=== PATIENT | female | born 1930 | race Caucasian/White ===

== ENCOUNTER → 2016-06-28 | Outpatient (CLI) | payer OTHER, MEDICARE ==
[~2016-06-28] MED LIST: ASPI1TAB83 PO; CTP2 PO; CYCL0.05 OP; CZR50 PO; FURO-85 PO; GABA-112 PO; GABA-113 PO; IPRA0.06 NAE; METO50TA17 PO; compounded cream
--- NOTE | 2016-06-28 16:46 | MAMMOGRAPHY REPORT ---
BILATERAL DIGITAL SCREENING MAMMOGRAM WITH CAD: 06/28/2016 CLINICAL HISTORY: Routine screening. Patient has no complaints. TECHNIQUE: Current study was also evaluated with a Computer Aided Detection (CAD) system. Bilatera l CC and MLO views were obtained. COMPARISON: Comparison is made to exams dated: 06/24/2015 mammogram, 11/26/2013 mammogram, 11/13/2012 mammogram, 11/12/2011 mammogram, 11/09/2010 mammogram, and 11/01/2009 mammogram - [facility]. BREAST COMPOSITION: The tissue of both breasts is heterogeneously dense, which may obscure small ma sses. FINDINGS: No suspicious masses, calcifications, or areas of architectural distortion are noted in e ither breast. There has been no significant interval change compared to prior exams. Bilateral shanel gn vascular calcifications are again noted. IMPRESSION: ACR BI-RADS CATEGORY 2: BENIGN There is no mammographic evidence of malignancy. A 1 year screening mammogram is recommended. The p atient will receive written notification of the results. Approximately 10% of breast cancers are not detected with mammography. A negative mammographic repor t should not delay biopsy if a clinically suggestive mass is present. Little Bridges M.D. /:06/28/2016 15:28:08 Senior Hr Business Partner: Sadaf SOUZA(Anabell)(Dacia)(JAYSON), [facility] letter sent: Normal 1/2 BI-RADS Code: ACR BI-RADS Category 2: Benign
== END | disposition home or self-care (01) ==
LOC: C.MAMM 13:22
PROVIDERS: ATTEND Internal Medicine Critical Care Medicine
DX: Z12.31 Encounter for screening mammogram for malignant neoplasm of breast (principal)

== ENCOUNTER 2017-04-29 12:52 | Inpatient (IN) | payer OTHER, MEDICARE ==
[~2017-04-29] VITALS: Ht 162.6 cm; Wt 57.3 kg
--- NOTE | 2017-04-29 13:55 | EMERGENCY ROOM VISIT NOTE ---
History Report prepared by Maureenibdeepak: Pratima Rizzo Under the Supervision of: Dr. Curry Walter M.D. First contact with patient: 13:48 Chief Complaint: FEVER Stated Complaint: COUGH/FEVER History of Present Illness The patient is an 86 year old female who presents to the Emergency Room with complaints of persistent flu like symptoms for the past 3 days. She is accompanied by 2 family members. She complains of a fever, congestion, productive cough, chest pain, back pain and nausea. She has not vomited. Her most recent temperature was 102 degrees. She last had Tylenol around 1200 today. She is currently 98% on 2 L NC. She admits her has been sick with similar symptoms. The patient did receive a flu shot. She got a pneumonia shot last year. She admits she had pneumonia a few years ago and required a short hospital stay. The patient denies any shortness of breath, abdominal pain , diarrhea or urinary symptoms. 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 Please see Additional Medical History Sheet. Past Medical & Surgical Medical Problems: (1) ANEMIA NOS (2) Angioplasty of blood vessel (3) Appendectomy (4) Cataract (5) Cholecystectomy (6) Empyema (7) HX-SKIN MALIGNANCY NEC (8) HYPERLIPIDEMIA NEC/NOS (9) HYPERPOTASSEMIA (10) HYPERTENSION NOS (11) OSTEOPOROSIS NOS (12) PERIPH VASCULAR DIS NOS (13) Peripheral vascular disease (14) Right lower lobe pneumonia (15) Right middle lobe pneumonia Family History FH: cancer FH: gallbladder disease Hypertension Social History Smoking Status: Former Smoker Alcohol Use: none Drug Use: none Marital Status: Housing Status: lives with family Occupation Status: retired Current/Historical Medications Scheduled Aspirin (Aspirin), 81 MG PO HS Clonidine Hcl (Catapres), 1 TAB PO BID Cyclosporine (Ophth) (Restasis), 1 DROP OPB BID Furosemide (Lasix), 20 MG PO DAILY Gabapentin (Neurontin), 200 MG PO UD Losartan Potassium (Cozaar), 100 MG PO DAILY Metoprolol Tartrate (Metoprolol Tartrate), 50 MG PO BID Scheduled PRN Ipratropium [place] (Nasal) (Ipratropium [place]), 2 SPRAYS MATT TID PRN for Nasal Congestion Allergies Coded Allergies: Sulfa Antibiotics (Verified Allergy, Intermediate, RASH, 04/29/17) Codeine (Verified Adverse Reaction, Mild, ABD CRAMPS, 04/29/17) Physical Exam Vital Signs Date Time Temp Pulse Resp B/P (MAP) Pulse Ox O2 Delivery O2 Flow Rate FiO2 04/29/17 15:03 88 20 167/116 98 Nasal Cannula 2.0 04/29/17 13:12 97 Nasal Cannula 2.0 04/29/17 13:10 84 04/29/17 13:03 37.5 83 22 189/49 93 Room Air Physical Exam GENERAL: Patient awake, alert, oriented x 3. Patient follows commands. Patient does not appear toxic. Patient is adequately hydrated and well- nourished. SKIN: No erythema, pallor, cyanosis or rash HEENT: Normal head, pupils equal, reactive to light and accommodation. [Ears normal.] [Oral cavity and posterior pharynx appear normal. Neck: Without adenopathy, no neck vein distention.] LUNGS: Faint rhonchi bilaterally. No wheezes, no rales. HEART: No murmurs. No gallops. No rubs ABDOMEN: No masses, no rebound, no hepatomegaly or splenomegaly. EXTREMITIES: Above knee amputation of right leg. No signs of trauma. No pedal or pretibial edema. No calf or thigh tenderness. NEUROLOGIC: Cranial nerves II-XII within normal limits. No gross motor sensory function deficits. Medical Decision & Procedures ER Provider Diagnostic Interpretation: Radiology results as stated below per my review and radiologist interpretation: CHEST 2 VIEWS ROUTINE CLINICAL HISTORY: 86 years-old Female presenting with cough fever. TECHNIQUE: PA and lateral views of the chest were obtained. COMPARISON: 07/29/2015. FINDINGS: Atherosclerosis of aortic arch. Cardiac silhouette enlarged. Opacity in the right mid lung. Trace bilateral pleural effusions. No pneumothorax. Osteopenia suspected. Upper abdomen normal. IMPRESSION: 1. Right midlung opacity consistent with pneumonia. 2. Trace bilateral pleural effusions. Electronically signed by: Ahsan Ponce M.D. 04/29/2017 3:07 PM Laboratory Results 04/29/17 13:00 Red Blood Count 4.07, Mean Corpuscular Volume 89.4, Mean Corpuscular Hemoglobin 30.2, Mean Corpuscular Hemoglobin Concent 33.8, Mean Platelet Volume 11.0, Neutrophils (%) (Auto) 81.1, Lymphocytes (%) (Auto) 8.1, Monocytes (%) (Auto) 10.2, Eosinophils (%) (Auto) 0.1, Basophils (%) (Auto) 0.1, Neutrophils # (Auto ) 12.15, Lymphocytes # (Auto) 1.22, Monocytes # (Auto) 1.53, Eosinophils # (Auto ) 0.01, Basophils # (Auto) 0.02 04/29/17 13:00 Test 04/29/17 13:00 04/29/17 14:28 04/29/17 14:31 White Blood Count 14.99 K/uL (4.8-10.8) Red Blood Count 4.07 M/uL (4.2-5.4) Hemoglobin 12.3 g/dL (12.0-16.0) Hematocrit 36.4 % (37-47) Mean Corpuscular Volume 89.4 fL (80-100) Mean Corpuscular Hemoglobin 30.2 pg (25-34) Mean Corpuscular Hemoglobin Concent 33.8 g/dl (32-36) Platelet Count 284 K/uL (130-400) Mean Platelet Volume 11.0 fL (7.4-10.4) Neutrophils (%) (Auto) 81.1 % Lymphocytes (%) (Auto) 8.1 % Monocytes (%) (Auto) 10.2 % Eosinophils (%) (Auto) 0.1 % Basophils (%) (Auto) 0.1 % Neutrophils # (Auto) 12.15 K/uL (1.4-6.5) Lymphocytes # (Auto) 1.22 K/uL (1.2-3.4) Monocytes # (Auto) 1.53 K/uL (0.11-0.59) Eosinophils # (Auto) 0.01 K/uL (0-0.5) Basophils # (Auto) 0.02 K/uL (0-0.2) RDW Standard Deviation 44.7 fL (36.4-46.3) RDW Coefficient of Variation 13.6 % (11.5-14.5) Immature Granulocyte % (Auto) 0.4 % Immature Granulocyte # (Auto) 0.06 K/uL (0.00-0.02) Dohle Bodies 1+ Anion Gap 9.0 mmol/L (3-11) Est Creatinine Clear Calc Drug Dose 27.4 ml/min Estimated GFR () 44.8 Estimated GFR (Non- 38.6 BUN/Creatinine Ratio 21.8 (10-20) Calcium Level 8.7 mg/dl (8.5-10.1) Total Bilirubin 1.2 mg/dl (0.2-1) Aspartate Amino Transf (AST/SGOT) 21 U/L (15-37) Alanine Aminotransferase (ALT/SGPT) 11 U/L (12-78) Alkaline Phosphatase 183 U/L (45-117) Total Protein 7.5 gm/dl (6.4-8.2) Albumin 2.6 gm/dl (3.4-5.0) Globulin 4.9 gm/dl (2.5-4.0) Albumin/Globulin Ratio 0.5 (0.9-2) Influenza Type A (RT-PCR) Neg for Influ A (NEG) Influenza Type B (RT-PCR) Neg for Influ B (NEG) Lactic Acid Level 1.4 mmol/L (0.4-2.0) Laboratory results as stated above per my review. Medications Administered Medications (Trade) Dose Ordered Sig/[place] Route Start Time Stop Time Status Last Admin Dose Admin Sodium Chloride 1,000 ml @ 1,000 mls/hr Q1H ONCE IV 04/29/17 14:15 04/29/17 15:14 DC 04/29/17 14:25 1,000 MLS/HR Ceftriaxone Sodium (Rocephin Inj) 1 gm NOW STAT IV 04/29/17 15:41 04/29/17 15:43 DC 04/29/17 16:01 1 GM Azithromycin (Zithromax IV) 500 mg NOW STAT IV 04/29/17 15:41 04/29/17 15:43 DC 04/29/17 16:39 500 MG ED Course 1345: Past medical records reviewed. The patient was evaluated in room B2. A complete history and physical examination was performed. 1415: NSS 1000 ml @ 1000 mls/hr IV. 1541: Azithromycin 500 mg IV, Rocephin 1 gm IV. 1543: I reevaluated the patient. I discussed her results and my recommendation she remain in the hospital for further evaluation and management and she and her family verbalized complete understanding and agreement. 1550: I discussed the patients case with Dr. River [facility] Hospitalist. The patient will be further evaluated. Medical Decision The differential diagnoses considered include influenza, pneumonia, bronchitis and sepsis. This patient is here with a cough fever and chills. Others in her family were recently diagnosed with the flu. Multiple labs, EKG and imaging were obtained. Please see above. White count is elevated. The patient has a right middle lobe infiltrate consistent with pneumonia. Blood cultures were obtained prior to initiation of IV antibiotics. The patient was given IV fluids. Her lactic acid was not elevated. I discussed care with the patient and multiple family members. I also discussed care with the hospitalist. Medication Reconcilliation Current Medication List: was not reviewed Blood Pressure Screening Patient's blood pressure: Elevated blood pressure Blood pressure disposition: Referred to PCP Consults Time Called: 1548 Consulting Physician: Dr. River, [facility] Hospitalist Returned Call: 1559 I discussed the patients case with Dr. River [facility] Hospitalist. The patient will be further evaluated. Impression Primary Impression: Pneumonia Scribe Attestation The scribe's documentation has been prepared under my direction and personally reviewed by me in its entirety. I confirm that the note above accurately reflects all work, treatment, procedures, and medical decision making performed by me. Departure Information Dispostion Being Evaluated By Hospitalist Referrals [facility] (PCP) Patient Instructions My [facility]
[2017-04-29 14:02] LABS: HEMATOCRIT 36.4 % (37-47); HEMOGLOBIN 12.3 g/dL (12.0-16.0); MEAN CELL VOLUME 89.4 fL (80-100); MEAN CORPUSCULAR HEMOGLOBIN 30.2 pg (25-34); MEAN CORPUSCULAR HGB CONC 33.8 g/dl (32-36); PLATELET COUNT 284 K/uL (130-400); RED CELL DISTRIBUTION WIDTH CV 13.6 % (11.5-14.5); RED CELL DISTRIBUTION WIDTH SD 44.7 fL (36.4-46.3); WHITE BLOOD COUNT 14.99 K/uL (4.8-10.8)
[2017-04-29] MEDS ORDERED: NRN100 (14:05)
[2017-04-29] MEDS ORDERED: CYCL0.052 OPB (14:05)
[2017-04-29] MEDS ORDERED: LOSA100T65 PO (14:05)
[2017-04-29] MEDS ORDERED: CLON0.2T PO (14:05)
[2017-04-29 14:10] LABS: ALBUMIN 2.6 gm/dl (3.4-5.0); CALCIUM 8.7 mg/dl (8.5-10.1); CREATININE 1.25 mg/dl (0.60-1.20); POTASSIUM 3.8 mmol/L (3.5-5.1)
[2017-04-29 14:13] LABS: TOTAL PROTEIN 7.5 gm/dl (6.4-8.2)
[2017-04-29] MEDS ORDERED: SODIUM CHLORIDE 0.9% 1000ML 1,000 ML IV ONE (14:15)
[2017-04-29 14:30] LABS: BASO % 0.1 %; BASO ABS # 0.02 K/uL (0-0.2); EOS % 0.1 %; EOS ABS # 0.01 K/uL (0-0.5); IG# 0.06 K/uL (0.00-0.02); LYMPH % 8.1 %; LYMPH ABS # 1.22 K/uL (1.2-3.4); MONO % 10.2 %; MONO ABS # 1.53 K/uL (0.11-0.59); NEUT % 81.1 %; NEUT ABS # 12.15 K/uL (1.4-6.5)
--- NOTE | 2017-04-29 15:09 | DIAGNOSTIC IMAGING REPORT ---
CHEST 2 VIEWS ROUTINE CLINICAL HISTORY: 86 years-old Female presenting with cough fever. TECHNIQUE: PA and lateral views of the chest were obtained. COMPARISON: 07/29/2015. FINDINGS: Atherosclerosis of aortic arch. Cardiac silhouette enlarged. Opacity in the right mid lung. Trace bilateral pleural effusions. No pneumothorax. Osteopenia suspected. Upper abdomen normal. IMPRESSION: 1. Right midlung opacity consistent with pneumonia. 2. Trace bilateral pleural effusions. Electronically signed by: Ahsan Ponce M.D. 04/29/2017 3:07 PM Dictated Date/Time: 04/29/2017 3:06 PM
[2017-04-29 15:26] LABS: INFLUENZA A PCR Neg for Influ A (NEG); INFLUENZA B PCR Neg for Influ B (NEG)
[2017-04-29] MEDS ORDERED: AZITHROMYCIN 500MG/255ML D5W IV STA (15:41)
[2017-04-29] MEDS ORDERED: CEFTRIAXONE SOD INJ 1 GM ADDVIAL IV STA (15:41)
[2017-04-29] MEDS ORDERED: MAGNESIUM HYDROXIDE SUSP 30 ML UDC PO PRN (17:00)
[2017-04-29] MEDS ORDERED: ALUMINUM/MAGNESIUM/SIMETH (MAALOX MAX) 30 ML UDC PO PRN (17:00)
[2017-04-29] MEDS ORDERED: METRONIDAZOLE / NSS 500 MG in PREMIXED NSS 100 ML IV SCH (17:00)
[2017-04-29] MEDS ORDERED: POLYETHYLENE (MIRALAX) 17 GM PACK PO PRN (17:00)
[2017-04-29] MEDS ORDERED: CEFEPIME IV 2,000 MG in SYRINGE 7.5 ML IV SCH (17:00)
[2017-04-29] MEDS ORDERED: HydrALAZINE HCL 20 MG/ML VIAL IV. PRN (17:15)
--- NOTE | 2017-04-29 17:21 | History and Physical ---
History & Physical Date & Time of Service: Apr 29, 2017 at 17:17 Chief Complaint: Cough/Fever Primary Care Physician: Anita Martinez History of Present Illness Source: patient Ms. Hager is an 86 y/o female with PMHx of Peripheral Artery Disease S/P Multiple Angioplasties and R AKA, Chronic Diastolic Dysfunction, and HTN who presents to the ED complaining of flulike symptoms 3 days. She developed sudden onset of chest congestion with a productive cough and fever. She states her temperature was 102 earlier today and took Tylenol around 12:00. From her coughing she states she has developed diffuse chest wall discomfort. She states she also has sinus congestion with maxillary sinus pressure. reports he had similar symptoms and is slowly resolving. She states she did have her flu vaccine this year and her pneumonia vaccine in the recent past. She denies any shortness of breath or supplemental O2 at home. CXR revealed a right middle lobe pneumonia with leukocytosis. Flu swab was negative. Past records reviewed, patient was admitted in April 2015 due to RML and RLL pneumonia which subsequently turned out to be an empyema requiring Pleurx drainage. She was discharged at that time on Augmentin and outpatient records revealed resolution of this issue. Past Medical/Surgical History 1. HLD 2. PAD S/P Angioplasties and S/P R AKA 3. Paroxysmal Atrial Fibrillation 4. Diastolic CHF 5. Chronic Anemia 6. HTN 7. S/P Cholecystectomy 8. S/P Appendectomy Family History FH: cancer FH: gallbladder disease Hypertension Social History Smoking Status: Former Smoker Drug Use: none Marital Status: Occupational Status: retired Immunizations History of Influenza Vaccine: Yes Influenza Vaccine Date: Feb 27, 2013 History of Tetanus Vaccine?: Yes Tetanus Immunization Date: May 30, 2011 History of Pneumococcal: Yes History of Hepatitis B Vaccine: Unknown Allergies Coded Allergies: Sulfa Antibiotics (Verified Allergy, Intermediate, RASH, 04/29/17) Codeine (Verified Adverse Reaction, Mild, ABD CRAMPS, 04/29/17) Home Medications Scheduled Aspirin (Aspirin), 81 MG PO HS Clonidine Hcl (Catapres), 1 TAB PO BID Cyclosporine (Ophth) (Restasis), 1 DROP OPB BID Furosemide (Lasix), 20 MG PO DAILY Gabapentin (Neurontin), 200 MG PO UD Losartan Potassium (Cozaar), 100 MG PO DAILY Metoprolol Tartrate (Metoprolol Tartrate), 50 MG PO BID Scheduled PRN Ipratropium [place] (Nasal) (Ipratropium [place]), 2 SPRAYS MATT TID PRN for Nasal Congestion Review of Systems Constitutional: + fever, + fatigue ENT: + nasal symptoms, + sore throat, + problem reported (maxillary sinus pressure) Respiratory: + cough, + sputum, No shortness of breath Cardiovascular: + chest pain (diffuse - started after frequent coughing), No palpitations Abdomen: + nausea (currently resolved), No pain, No vomiting, No diarrhea, No constipation, No GI bleeding Genitourinary - Female: No dysuria Hematologic / Lymphatic: No abnormal bleeding/bruising Integumentary: No rash Physical Exam Vital Signs Date Time Temp Pulse Resp B/P (MAP) Pulse Ox O2 Delivery O2 Flow Rate FiO2 04/29/17 15:03 88 20 167/116 98 Nasal Cannula 2.0 04/29/17 13:12 97 Nasal Cannula 2.0 04/29/17 13:10 84 04/29/17 13:03 37.5 83 22 189/49 93 Room Air General Appearance: WD/WN, no apparent distress, + pertinent finding Head: normocephalic, atraumatic Eyes: sclerae normal ENT: hearing grossly normal Neck: supple, no JVD, trachea midline Respiratory/Chest: no respiratory distress, no accessory muscle use, + decreased breath sounds (R bases > L bases), + crackles (R bases) Cardiovascular: regular rate, rhythm Abdomen/GI: normal bowel sounds, non tender, soft Extremities/Musculoskelatal: + pertinent finding (R AKA; chronic parrish of LLE) Neurologic/Psych: alert, oriented x 3 Skin: normal color, warm/dry Diagnostics Laboratory Results Results Past 24 Hours Test 04/29/17 13:00 04/29/17 14:28 04/29/17 14:31 Range/Units White Blood Count 14.99 4.8-10.8 K/uL Red Blood Count 4.07 4.2-5.4 M/uL Hemoglobin 12.3 12.0-16.0 g/dL Hematocrit 36.4 37-47 % Mean Corpuscular Volume 89.4 80-100 fL Mean Corpuscular Hemoglobin 30.2 25-34 pg Mean Corpuscular Hemoglobin Concent 33.8 32-36 g/dl Platelet Count 284 130-400 K/uL Mean Platelet Volume 11.0 7.4-10.4 fL Neutrophils (%) (Auto) 81.1 % Lymphocytes (%) (Auto) 8.1 % Monocytes (%) (Auto) 10.2 % Eosinophils (%) (Auto) 0.1 % Basophils (%) (Auto) 0.1 % Neutrophils # (Auto) 12.15 1.4-6.5 K/uL Lymphocytes # (Auto) 1.22 1.2-3.4 K/uL Monocytes # (Auto) 1.53 0.11-0.59 K/uL Eosinophils # (Auto) 0.01 0-0.5 K/uL Basophils # (Auto) 0.02 0-0.2 K/uL RDW Standard Deviation 44.7 36.4-46.3 fL RDW Coefficient of Variation 13.6 11.5-14.5 % Immature Granulocyte % (Auto) 0.4 % Immature Granulocyte # (Auto) 0.06 0.00-0.02 K/uL Dohle Bodies 1+ Sodium Level 137 136-145 mmol/L Potassium Level 3.8 3.5-5.1 mmol/L Chloride Level 101 98-107 mmol/L Carbon Dioxide Level 27 21-32 mmol/L Anion Gap 9.0 3-11 mmol/L Blood Urea Nitrogen 27 7-18 mg/dl Creatinine 1.25 0.60-1.20 mg/dl Est Creatinine Clear Calc Drug Dose 27.4 ml/min Estimated GFR () 44.8 Estimated GFR (Non- 38.6 BUN/Creatinine Ratio 21.8 10-20 Random Glucose 118 70-99 mg/dl Calcium Level 8.7 8.5-10.1 mg/dl Total Bilirubin 1.2 0.2-1 mg/dl Aspartate Amino Transf (AST/SGOT) 21 15-37 U/L Alanine Aminotransferase (ALT/SGPT) 11 12-78 U/L Alkaline Phosphatase 183 45-117 U/L Total Protein 7.5 6.4-8.2 gm/dl Albumin 2.6 3.4-5.0 gm/dl Globulin 4.9 2.5-4.0 gm/dl Albumin/Globulin Ratio 0.5 0.9-2 Influenza Type A (RT-PCR) Neg for Influ A NEG Influenza Type B (RT-PCR) Neg for Influ B NEG Lactic Acid Level 1.4 0.4-2.0 mmol/L Microbiology Results 04/29/17 Blood Culture, Received Pending 04/29/17 Blood Culture, Received Pending Diagnostic Radiology CHEST 2 VIEWS ROUTINE FINDINGS: Atherosclerosis of aortic arch. Cardiac silhouette enlarged. Opacity in the right mid lung. Trace bilateral pleural effusions. No pneumothorax. Osteopenia suspected. Upper abdomen normal. IMPRESSION: 1. Right midlung opacity consistent with pneumonia. 2. Trace bilateral pleural effusions. Impression Assessment and Plan Ms. Hager is an 86 y/o female with PMHx of Peripheral Artery Disease S/P Multiple Angioplasties and R AKA, Chronic Diastolic Dysfunction, and HTN who presents to the ED complaining of flulike symptoms 3 days. Sepsis from Community Acquired Pneumonia: - Obtain CT chest for further evaluation of pneumonia given her history of previous empyema - Ceftriaxone 2 g IV daily, Zithromax 250 mg IV daily, and Vancomycin - Tylenol PRN fever/pain - NSS at 75 mL/hr - Duo nebs Peripheral Artery Disease S/P Angioplasties and S/P R AKA: - ASA 81 mg daily Chronic Diastolic Dysfunction: - Daily weights and I&O Paroxysmal Atrial Fibrillation: - Quick review of previous admission in 2014 suggests she had an episode of what appears to be remote atrial fibrillation related to her respiratory illness at the time - Patient does not recall ever being diagnosed with this and is not on anticoagulation HTN: - Clonidine 0.2 mg BID and metoprolol 50 mg BID DVT Prophylaxis: Heparin 5000 units Q12H Code Status: FULL RESUSCITATION Disposition: - Lives at the [facility] - will obtain PT/OT evaluations I personally interviewed and examined the patient. I agree with history of present illness and physical exam mentioned above, I also performed my own history taking and examination. Past medical history and review of system has been obtained by myself I reviewed all pertinent labs and studies Reviewed current medications I discussed and formulated of the assessment and plan mentioned above. Please refer to the Summary mentioned below. Agree With Miss. Carrero's plan General Appearance: Mild acute distress Eyes: normal Sclerae, extraocular muscle intact ENT: hearing grossly normal Neck: supple Respiratory/Chest: Decreased air entry bilateral , mild respiratory distress, no accessory muscle use, currently she is comfortable on O2 supplement Cardiovascular: no murmur, tachycardia Abdomen: non tender, soft, no masses Extremities: no edema Neurologic/Psychiatric: Awake alert oriented times place and person moves all extremities sensation intact cranial nerves II-12 appear to be intact Skin: normal color, warm/dry, no rash 86-year-old female presented to the ED with shortness of breath Assessment Sepsis present on admission secondary to below Community-acquired pneumonia with possible empyema complication (loculated effusion on CAT scan) Hypertension Atrial fibrillation Chronic diastolic congestive heart failure, not in acute exacerbation Accidental finding of thyroid nodule on CAT scan plan: continune supportive care CTX/Azithro Swallow evaluation to rule out aspiration pneumonia also giving her Hx of empyema and possibility of community acquired MRSA will cover w vanco lactinex for C diff prophylaxis Consult mortgage loan interviewer for loculated pleural effusion gentle fluid hydration CT chest showed some loculated effusion Aba Odonnell MD, [facility] Level of Care Telemetry Resuscitation Status FULL RESUSCITATION VTE Prophylaxis VTE Risk Assessment Done? Y/N: Yes Risk Level: Moderate Given or contraindicated: Unfractionated heparin SQ
[2017-04-29] MEDS ORDERED: METOPROLOL TARTRATE 1 MG/ML VIAL IV. PRN (17:30)
[2017-04-29] MEDS ORDERED: ACETAMINOPHEN IV 100 ML IV PRN (17:30)
--- NOTE | 2017-04-29 18:02 | DIAGNOSTIC IMAGING REPORT ---
(CHEST) THORAX WITHOUT CLINICAL HISTORY: 86 years-old Female presenting with Pneumona - H/O Empyema in RML. TECHNIQUE: Multidetector CT imaging of the chest was performed without the use of intravenous contrast. IV contrast: None. A dose lowering technique was used consistent with the principles of ALARA (as low as reasonably achievable). COMPARISON: 12/23/2015. CT DOSE (mGy.cm): The estimated cumulative dose is 181.12 mGy.cm. FINDINGS: Hvac Tech topogram: Right midlung opacity. On soft tissue windows, 1.9 cm hypodense nodule in the right lobe of the thyroid. Prominent precarinal lymph nodes measuring up to 10 mm in the short axis. Evaluation of for hilar lymph nodes is limited in the absence of intravenous contrast. Atherosclerosis of the aorta. Normal heart size. Aortic valve and coronary artery calcification. Lobular loculated pleural fluid or pleural thickening suggested in the major fissure on the right. Borderline hepatic steatosis. The esophagus is mildly distended with gas and debris. On lung windows, dependent opacities likely atelectasis. Nodular consolidation in the anterior basal right lower lobe (series 4 image 208). Near complete right middle lobe collapse although airways to the right middle lobe remain patent. This appears to be chronic. Centrilobular nodular opacities in the superior segment of the right lower lobe. Lobular peribronchovascular consolidation in the posterior segment of the right upper lobe. Additional groundglass or bronchovascular opacity at the right apex. Few solid nodular opacities in the lingula. Diffuse bronchial wall thickening greater in the right lung with a basal predominance. Minimal debris suggested in several of the right lower lobe subsegmental airways. On bone windows, mild degenerative changes of the thoracic spine. IMPRESSION: 1. Multifocal peribronchovascular patchy opacities primarily in the right lung combined with bronchial wall thickening concerning for multifocal bronchopneumonia or aspiration. 2. Few opacities in the left lung may suggest endobronchial spread of infection versus less extensive aspiration. 3. Chronic collapse of the right middle lobe, which has increased from prior. 4. Loculated pleural fluid or pleural thickening in the right major fissure may relate to the infectious etiology, especially in the absence of a history of malignancy. 5. 1.9 cm right thyroid lobe nodule. Nonemergent ultrasound to be considered. Electronically signed by: Ahsan Ponce M.D. 04/29/2017 6:00 PM Dictated Date/Time: 04/29/2017 5:52 PM
[2017-04-29 19:13] VITALS: BP 178/67; PULSE 104; TEMP 37.8; O2SAT 98; Ht 162.6 cm; Wt 57.3 kg
--- NOTE | 2017-04-29 19:33 | NUR ---
Patient arrived via wheelchair from ER to room 288-2; A&O; states she has no energy; stands and pivots well; voided in toilet; no c/o pain; all admission nursing documentation completed; call dumont within reach and pt instructed to ring for assistance.
[2017-04-29] MEDS: ALBUT/IPRATROP 3MG/0.5MG NEB 3 ML VIAL INH SCH (19:52)
[2017-04-29 19:57] VITALS: PULSE 98; O2SAT 95
[2017-04-29 20:00] VITALS: BP 178/57; PULSE 77; TEMP 37.2; O2SAT 91; O2SAT 95
--- NOTE | 2017-04-29 20:00 | NUR ---
A: Pt in sinus tachycardia to sinus rhythm on monitor.
[2017-04-29] MEDS: ACETAMINOPHEN 325 MG TAB PO PRN (20:09)
[2017-04-29] MEDS: ONDANSETRON INJ 2 MG/ML 2 ML VIAL IV PRN (20:09)
[2017-04-29] MEDS ORDERED: VANCOMYCIN CONSULT ACTIVE PRN (20:15)
[2017-04-29] MEDS ORDERED: VANCOMYCIN IV 1,250 MG in SODIUM CHLORIDE 0.9% 250ML 250 ML IV SCH (20:30)
[2017-04-29 20:50] VITALS: BP 134/68; PULSE 106; O2SAT 91
[2017-04-29] MEDS: SODIUM CHLORIDE 0.9% 1000ML 1,000 ML IV SCH (20:53)
[2017-04-29] MEDS ORDERED: HEPARIN SOD 5000 UNIT/0.5 ML CARP SQ SCH (21:00)
[2017-04-29] MEDS ORDERED: CLONIDINE HCL 0.2 MG TAB PO SCH (21:00)
[2017-04-29] MEDS: BOOST VANILLA OR BOOST GLUCOSE CONTROL CHOCOLATE PO SCH (21:00)
[2017-04-29] MEDS: METOPROLOL TARTRATE 50 MG TAB PO SCH (21:03)
[2017-04-29] MEDS: ASPIRIN 81 MG ECTAB PO SCH (21:03)
[2017-04-29] MEDS: HEPARIN SOD 5000 UNIT/0.5 ML CARP SQ SCH (21:39)
[2017-04-29] MEDS: CLONIDINE HCL 0.1 MG TAB PO SCH (21:42)
--- NOTE | 2017-04-29 21:47 | NUR ---
A: Pt had nausea and vomiting after being settled in room 288-2. Zofran administered. PO Tylenol administered due to increasing temperature. Pt is A&Ox4. Denies chest pain. Sinus rhythm to sinus tach on the monitor. IV in left AC is tender. IV team paged for new site. Pt receiving IV antibiotics, IVF, and IV Zofran. Respiratory therapist saw patient and noted that patient's sats were now >90% on RA. 2L O2 NC removed. Will continue to monitor.
[2017-04-29 22:00] LABS: INR 1.1 (0.9-1.1); PTT PATIENT 30.8 SECONDS (21.0-31.0)
[2017-04-29 22:32] VITALS: TEMP 36.6
[2017-04-30] VITALS (12 sets, daily range): BP systolic 107–150; BP diastolic 50–65; PULSE 65–89; TEMP 36.4–37; O2SAT 90–97
--- NOTE | 2017-04-30 | NUR ---
A: Patient resting in bed. A&O x4. VSS on room air. NSR on monitor. OOB with supervision assist to wheelchair to BR. Patient remains afebrile. NSS infusing at 75mL/hr intro LT forearm. RT BKA noted. See EMR for full assessment. Instructed to ring for assistance. Will continue to monitor.
--- NOTE | 2017-04-30 04:00 | NUR ---
A: Patient remain resting in bed with no complaints. A&O x4. VSS on room air. NSR on monitor. Patient denies pain, nausea or shortness of breath at this time. Assessment unchanged from previous. Call dumont within reach. Will continue to monitor.
[2017-04-30 06:56] LABS: HEMATOCRIT 32.2 % (37-47); HEMOGLOBIN 10.6 g/dL (12.0-16.0); MEAN CELL VOLUME 90.4 fL (80-100); MEAN CORPUSCULAR HEMOGLOBIN 29.8 pg (25-34); MEAN CORPUSCULAR HGB CONC 32.9 g/dl (32-36); MEAN PLATELET VOLUME 10.5 fL (7.4-10.4); PLATELET COUNT 218 K/uL (130-400); RED CELL DISTRIBUTION WIDTH CV 13.8 % (11.5-14.5); RED CELL DISTRIBUTION WIDTH SD 46.1 fL (36.4-46.3)
[2017-04-30 07:20] LABS: CALCIUM 7.7 mg/dl (8.5-10.1); CREATININE 1.1 mg/dl (0.60-1.20); POTASSIUM 3.9 mmol/L (3.5-5.1)
[2017-04-30] MEDS: ALBUT/IPRATROP 3MG/0.5MG NEB 3 ML VIAL INH SCH ×4 (07:38→19:26)
--- NOTE | 2017-04-30 08:00 | NUR ---
A: PT IS A&OX4. VSS ON RA. DENIES CHEST PAIN AND SOB. PT IS OOB WITH SUPERVISION TO THE WHEELCHAIR. PT IS NSR ON MONITOR. NSS INFUSING PER ORDER WITH INTERMITTENT ABX. PT IS HAS POOR APPETITE BUT TOLERATING DIET. PT IS RESTING IN BED AT THIS TIME. Q1H ROUNDING. CALL RINCON WITHIN REACH. WILL CONTINUE TO MONITOR.
[2017-04-30] MEDS: CLONIDINE HCL 0.1 MG TAB PO SCH ×2 (08:09→21:35)
[2017-04-30] MEDS: METOPROLOL TARTRATE 50 MG TAB PO SCH ×2 (08:09→21:34)
[2017-04-30] MEDS: BOOST VANILLA OR BOOST GLUCOSE CONTROL CHOCOLATE PO SCH ×2 (08:10→19:00)
[2017-04-30] MEDS: SODIUM CHLORIDE 0.9% 1000ML 1,000 ML IV SCH (08:11)
[2017-04-30] MEDS: HEPARIN SOD 5000 UNIT/0.5 ML CARP SQ SCH ×2 (08:12→21:37)
[2017-04-30] MEDS: CEFTRIAXONE SOD INJ 2,000 MG in DEXTROSE 5% 50ML 50 ML IV SCH (08:43)
--- NOTE | 2017-04-30 10:55 | PULMONARY CONSULTATION ---
DATE OF CONSULTATION: 04/30/2017 DATE OF CONSULTATION: 04/30/2017 REASON FOR CONSULTATION: Bronchopneumonia. HISTORY OF PRESENT ILLNESS: An 86-year-old white female [facility] her states she was in her usual state of health but over the past 3 days has become progressively more ill. She states she went out Saturday for dinner because of their anniversary, but a poorly and the next morning developed sore throat, productive cough, eventually nausea and right-sided chest discomfort. She felt congested and she developed a fever with rigors. The temperature reached 102. She took Tylenol, but her also has been ill and decision was made to bring her to our ER and was seen by Dr. Walter. She was seen by Dr. Walter. She has received annual flu vaccines and is up to date with Pneumovax. Chest x-ray suggested a right mid lung opacity consistent with pneumonia with trace bilateral pleural effusions. White count was 14,900, H&H 12.3 and 36.4. Preponderance of polymorphonuclear leukocytes was seen in the differential - RT-PCR for both influenza type A and B were negative. Lactic acid was 1.4. The patient was started on IV azithromycin and Rocephin by Dr. Walter in the ER after cultures were obtained. The patient was admitted onto the hospitalist service. The patient has a negative smoking history although does have secondary exposure. Her last admission was last year at this time. I saw her in consultation on 04/27/2015. I had seen her previously with both the right middle and lower lobe pneumonia and right pleural effusion. She presented at that time with severe right-sided discomfort. She has a history of chronic anemia, dyslipidemia, hypertension, peripheral vascular disease with previous amputation of the right lower extremity by Dr. Smith and previous cholecystectomy and appendectomy. CAT scan at that time showed consolidative changes involving the right middle lobe and right lung base. She was placed on aerosolized bronchodilator with broad-spectrum antibiotic coverage at that time and kept on her diuretics, metoprolol and losartan. She also suffers from a peripheral neuropathy. Dr. James is her primary care physician. She has 3 grown children, 2 who live locally. 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 She has 2 grandchildren who live here. She has a history of renal artery stenosis with a 50% right renal artery stenosis by MRA. 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 She has undergone a right femoral popliteal bypass in the past but eventually the leg had to be amputated. In 2014, in November, she had a loculated right pleural effusion with nearly complete atelectasis of the right lower lobe and middle lobe. There was a question whether she had significant mediastinal lymphadenopathy from a neoplastic process. PET CT scan in September of 2014 showed abnormal soft tissue nodularity in the inferior aspect of the right upper lobe and in the paramediastinal region and right hilum. There was certainly a concern for neoplasm at the time. The patient was eventually evaluated by Dr. Colby Fishman who saw the patient in consultation on 04/28/2015. Her white count had reached 45,000 at that time and had come down to 23,000 on antibiotic coverage. Thoracentesis showed an exudate with an elevated LDH and there was a concern about empyema versus parapneumonic effusion. The fluid appeared to be loculated. A PleurX catheter was placed and thrombolysis was carried out with 4 mg of tissue plasminogen activator mixed with 100 mL of sterile saline. This was effective. The PleurX catheter was removed in May 2015. The patient was kept on Augmentin therapy for several weeks and recovered. During the process of workup on admission CT scan of the chest was done and this was compared to previous CT scan of 12/23/2015 and showed multifocal peribronchovascular patchy opacities primarily in the right lung combined with bronchial wall thickening concerning for multifocal bronchopneumonia or aspiration. There were also a few opacities in the left lung suggesting either endobronchial spread of infection versus less extensive aspiration. There was chronic collapse of the right middle lobe and loculated pleural fluid or thickening of the right major fissure. There was also a thyroid nodule seen. Blood cultures were obtained. The patient's white count on admission as stated earlier was close to 15,000, BUN 28, creatinine 1.1. For details of past medical history, medications, family and social history, I refer you to current record. PHYSICAL EXAMINATION: GENERAL: Reveals a well-developed, thin, cachectic elderly white female appearing stable at rest but coughing sporadically and appearing ill and mildly toxic. CURRENT VITAL SIGNS: Temperature 37.5, pulse 83 and regular, respiratory rate 22, blood pressure 189/49, O2 sat 93% on room air and 98% on 2 liters. SKIN: Warm and dry. HEAD, EYES, EARS, NOSE, AND THROAT: Atraumatic, normocephalic, PERRLA, EOMI. Conjunctivae pale. Sclerae nonicteric. Fundi poorly visualized. NECK: Neck veins are not distended at 45 degrees. No lymphadenopathy. LUNGS: Tubular breath sounds right mid axillary with decreased breath sounds, scattered wheezes right base. CARDIAC EXAMINATION: Regular rate and rhythm. I do not appreciate a gallop. Grade 1/6 SCM heard at the lower left sternal border. ABDOMEN: Soft, scaphoid. No evidence of hepatosplenomegaly. EXTREMITIES: Right AKA with chronic stasis changes left lower extremity. Pulses diminished in the dorsalis pedis and posterior tibial. NEUROLOGICAL: Cranial nerves II-XII grossly intact. No lateralizing signs. LABORATORY DATA: As stated earlier. OVERALL ASSESSMENT AND IMPRESSION: An 86-year-old white female with past medical history of severe peripheral artery disease, status post multiple angioplasties and bypass surgery with right AKA, chronic diastolic dysfunction, paroxysmal atrial fibrillation, hypertensive cardiovascular disease and previous history of multilobar pneumonia with empyema status post PleurX catheter drainage with use of intrapleural plasminogen activator to effect adequate drainage, now presents with multilobar pneumonia that appears to be community-acquired. Currently, the patient has received IV ceftriaxone, IV Zithromax and vancomycin and has been placed back on her Catapres, metoprolol as well as receiving aerosolized bronchodilator. I think the antibiotic coverage is adequate. I have reviewed her records and no pathognomonic organism was found from the pleural fluid or bronchoscopic intervention in 2015. I do not believe there is a significant amount of fluid to be drained involving the right pleural space currently, but rather it looks more like thickening as a result of the previous parapneumonic effusion or empyema. We will continue to follow along with you. The patient may benefit from bronchoscopic intervention if she fails to clinically improve with current therapy. Thank you very much for this consultation. We will follow along with you.
--- NOTE | 2017-04-30 11:42 | NUR ---
RD noted new supplement order for Boost BID. Pt prefers anastasia. and strawberry flavor - kitchen made aware & supplement order revised in [employer] to reflect change in times to 1000 & 1900 (kitchen snack time schedule). Consult RD PRN for additional nutrition interventions.
--- NOTE | 2017-04-30 12:00 | NUR ---
A: ASSESSMENT UNCHANGED. Q1H ROUNDING. CALL RINCON WITHIN REACH. WILL CONTINUE TO MONITOR.
--- NOTE | 2017-04-30 13:00 | NUR ---
Case Management- Met with patient in room. Patient lives in the [facility] the [facility]. Patient reports she lives with her she is independent wih adls uses a walker to ambulate does not drive due to previous aka. Her or son typically transports to appointments if they are not availabloe the [facility] transports her. She plans to return home on discharge. CM following
--- NOTE | 2017-04-30 13:33 | Pharmacy Progress Note ---
Pharmacy Abx Initial Consult Date of Service Apr 30, 2017. Pharmacy Dosing Scope Date of Consult: 04/29/2017 Consultation requested by: Naty Carrero PA-C Pharmacy is consulted to initiate Vancomycin IV dosing therapy, order appropriate labs and adjust drug dose/frequency. Subjective The patient is a 86 year old female admitted on Apr 29, 2017 at 17:11. Objective Height (Feet): 5 Height (Inches): 4.00 Weight (Kilograms): 55.500 Vital Signs (Past 12Hrs) Vital Signs Past 12 Hours Date Time Temp Pulse Resp B/P (MAP) Pulse Ox O2 Delivery O2 Flow Rate FiO2 04/30/17 11:24 37.0 89 16 108/63 (78) 95 Room Air 04/30/17 11:21 70 18 95 Room Air 04/30/17 08:00 Room Air 04/30/17 07:38 75 18 95 Room Air 04/30/17 07:16 36.6 81 16 136/63 (87) 94 Room Air 04/30/17 04:00 Room Air 04/30/17 03:50 36.4 65 20 107/51 (69) 95 Room Air Lab Results (24Hrs) Laboratory Tests (24 Hours) Test 04/29/17 14:31 04/30/17 06:18 Lactic Acid Level 1.4 mmol/L (0.4-2.0) White Blood Count 10.70 K/uL (4.8-10.8) Item Value Date Time Blood Urea Nitrogen 28 mg/dl H 04/30/17 0618 Creatinine 1.10 mg/dl 04/30/17 0618 Est Creatinine Clear Calc Drug Dose 31.1 ml/min 04/30/17 0618 Blood Urea Nitrogen 27 mg/dl H 04/29/17 1300 Creatinine 1.25 mg/dl H 04/29/17 1300 Est Creatinine Clear Calc Drug Dose 27.4 ml/min 04/29/17 1300 Micro Results Date/Time Source Procedure Growth Status 04/29/17 14:31 Blood Blood Culture Pending Received 04/29/17 13:00 Blood Blood Culture Pending Received 04/29/17 22:00 Nasal MRSA DNA Surveillance Screen - Final Specimen Negative for MRSA by DNA Probe Complete Assessment & Plan Assessment 86 year old female admitted for probable bronchopneumonia of the RML. Patient with a h/o RML Empyema. The patient was empirically started on IV Vancomycin, IV Azithromycin and IV Ceftriaxone. Serum creatinine 1.25 mg/dL upon admission , down to 1.1 mg/dL this AM approaching the apparent baseline of 1.0 mg/dL. Nasal swab was negative for MRSA. Plan Vancomycin for treatment of pneumonia. Vancomycin IV * Loading dose: 1250 mg (22 mg/kg) * Maintenance dose: 750 mg IV (13.8 mg/kg) every 24 hours * Goal trough level for pneumonia: 15 to 20 mcg/mL * Trough level ordered for 05/02/2017 prior to the 1400 hrs dose Pharmacy will continue to follow and will adjust dose/frequency as necessary. Thank you.
[2017-04-30] MEDS ORDERED: VANCOMYCIN IV 750 MG in SODIUM CHLORIDE 0.9% 250ML 250 ML IV SCH (14:00)
[2017-04-30] MEDS ORDERED: AZITHROMYCIN IV 250 MG in DEXTROSE 5% 250ML 250 ML IV SCH (14:00)
--- NOTE | 2017-04-30 16:00 | NUR ---
A: Patient alert and oriented. NSR on monitor. Lungs diminished throughout, fine crackles in the bilateral bases. Maintaining SpO2 sats at greater than 90% on RA. NS @ 75cc/hr and intermittent abx infusing into right forearm. Patient c/o burning at IV site, IV team paged to assess. Will continue to monitor.
--- NOTE | 2017-04-30 18:03 | Hospitalist Progress Note ---
Hospitalist Progress Note Date of Service Apr 30, 2017. Subjective Pt evaluation today including: conversation w/ patient, conversation w/ family , physical exam Pt reports not able to sleep at night due to a lot of coughing which then causes her chest to hurt. Not bringing up much sputum. Low appetite. No diarrhea. Feels generalized weakness All Other Systems: Reviewed and Negative Objective Vital Signs Date Time Temp Pulse Resp B/P (MAP) Pulse Ox O2 Delivery O2 Flow Rate FiO2 04/30/17 16:25 76 18 95 Room Air 04/30/17 15:05 36.5 77 16 118/57 (77) 90 Room Air 04/30/17 12:00 Room Air 04/30/17 11:24 37.0 89 16 108/63 (78) 95 Room Air 04/30/17 11:21 70 18 95 Room Air 04/30/17 08:00 Room Air 04/30/17 07:38 75 18 95 Room Air 04/30/17 07:16 36.6 81 16 136/63 (87) 94 Room Air 04/30/17 04:00 Room Air 04/30/17 03:50 36.4 65 20 107/51 (69) 95 Room Air 04/30/17 00:22 36.9 69 20 115/50 (71) 93 Room Air 04/30/17 00:00 Room Air 04/29/17 22:32 36.6 04/29/17 20:50 106 134/68 (90) 91 Room Air 04/29/17 20:00 37.2 77 18 178/57 (97) 95 Nasal Cannula 1.0 04/29/17 20:00 91 Room Air 04/29/17 19:57 98 16 95 Nasal Cannula 1.0 04/29/17 19:13 37.8 104 20 178/67 98 Nasal Cannula 2.0 04/29/17 18:42 97 25 186/60 98 04/29/17 18:31 97 25 186/60 98 Nasal Cannula 2.0 Physical Exam General Appearance: no apparent distress, + thin Eyes: normal inspection, sclerae normal ENT: hearing grossly normal Neck: trachea midline Respiratory/Chest: no respiratory distress, no accessory muscle use, + crackles (in right lower and middle lung bryant, some in left middle lung field, otherwise clear) Cardiovascular: regular rate, rhythm, no edema, no murmur Abdomen: normal bowel sounds, non tender, soft, no organomegaly Extremities: non-tender, no pedal edema, no calf tenderness, + pertinent finding (right AKA) Neurologic/Psychiatric: alert, normal mood/affect, oriented x 3 Skin: normal color, warm/dry, no rash (except a few scabbed over skin tears left anterior tibia) Laboratory Results Last 24 Hours Test 04/29/17 21:27 04/30/17 06:18 04/30/17 12:01 Prothrombin Time 11.6 SECONDS Prothromb Time International Ratio 1.1 Activated Partial Thromboplast Time 30.8 SECONDS Partial Thromboplastin Ratio 1.2 White Blood Count 10.70 K/uL Red Blood Count 3.56 M/uL Hemoglobin 10.6 g/dL Hematocrit 32.2 % Mean Corpuscular Volume 90.4 fL Mean Corpuscular Hemoglobin 29.8 pg Mean Corpuscular Hemoglobin Concent 32.9 g/dl RDW Standard Deviation 46.1 fL RDW Coefficient of Variation 13.8 % Platelet Count 218 K/uL Mean Platelet Volume 10.5 fL Sodium Level 143 mmol/L Potassium Level 3.9 mmol/L Chloride Level 108 mmol/L Carbon Dioxide Level 25 mmol/L Anion Gap 9.0 mmol/L Blood Urea Nitrogen 28 mg/dl Creatinine 1.10 mg/dl Est Creatinine Clear Calc Drug Dose 31.1 ml/min Estimated GFR () 52.3 Estimated GFR (Non- 45.1 BUN/Creatinine Ratio 25.7 Random Glucose 101 mg/dl Calcium Level 7.7 mg/dl Magnesium Level 2.2 mg/dl Random Vancomycin Level 13.1 mcg/ml Assessment and Plan Ms. Hager is an 86 y/o female with PMHx of Peripheral Artery Disease S/P Multiple Angioplasties and R AKA, Chronic Diastolic CHF, lone A-fib, and HTN who presents to the ED complaining of flulike symptoms 3 days. Found to have multifocal PNA and sepsis, as well as acute hypoxemic respiratory failure. Sepsis/Community Acquired Pneumonia/Acute hypoxemic respiratory failure: Chest CT confirms chronic RML collapse worse than previous, multifocal PNA on right lung and some in lingula. Possible loculated effusion vs chronic changes. Seen by Pulm who does not think has loculated effusion, no need for thoracentesis. May need bronchoscopy if not improving. Has a h/o previous empyemea on right with need for PleurX catheter drainage in 2015. - continue Ceftriaxone 2 g IV daily, Zithromax 250 mg IV daily, and Vancomycin and if BCxs remain negative x 48 hrs, will dc Vanco especially in light of neg MRSA nasal swab - Tylenol PRN fever/pain -continue NSS at 75 mL/hr as has poor po intake due to low appetite - continue Duo nebs -follow BCxs -start hycodan syrup for cough -Appreciate Pulm consult Peripheral Artery Disease S/P Angioplasties and S/P R AKA-stable, no acute issues - ASA 81 mg daily Chronic Diastolic CHF/HTN-stable, no evidence of fluid overload, BPs acceptable - Daily weights and I&O -continue Clonidine 0.2 mg BID and metoprolol 50 mg BID Lone Atrial Fibrillation: - Quick review of previous admission in 2014 suggests she had an episode of what appears to be remote atrial fibrillation related to her respiratory illness at the time - Patient does not recall ever being diagnosed with this and is not on anticoagulation -follow on tele-no events so far -continue metoprolol DVT Prophylaxis: Heparin 5000 units Q12H Code Status: FULL RESUSCITATION Disposition: - [facility] - will obtain PT/OT evaluations
[2017-04-30] MEDS: HYDROCODONE/HOMATROPINE SYRUP 5MG/1.5MG 5ML UDP PO PRN ×2 (19:06→23:18)
[2017-04-30] MEDS: ASPIRIN 81 MG ECTAB PO SCH (21:34)
--- NOTE | 2017-04-30 22:37 | NUR ---
A/ID: Assessment unchanged. Patient with moist, non-productive cough, medicated with PRN hycodan syrup. NSR on the monitor. Patient admitted from independent living with . and son assist patient with transportation and ADLs as patient has AKA. Patient is a one assist to her wheelchair; plans on returning home upon discharge.
[2017-05-01] VITALS (13 sets, daily range): BP systolic 115–167; BP diastolic 49–69; PULSE 72–114; TEMP 36.6–37.2; O2SAT 92–97
--- NOTE | 2017-05-01 | NUR ---
A: Patient resting in bed. A&O x4. VSS on room air. NSR on monitor. Patient oob with assist of one to wheelchair. Voiding in toilet. NSS infusing at 75 into RT forearm. C/O moist non-productive cough, states she is not really getting relief from Hycodan syrup. See EMR for full assessment. Instructed to ring for assistance. Bed alarm in place for safety HS. Call dumont within reach. Will continue to monitor.
[2017-05-01] MEDS: ALBUT/IPRATROP 3MG/0.5MG NEB 3 ML VIAL INH SCH ×5 (01:28→19:44)
[2017-05-01] MEDS ORDERED: COUGH DROP (SUGAR FREE) LOZ 24 LOZ/1 BOX ONE (01:29)
[2017-05-01] MEDS ORDERED: NURSING DECISION MEDICATION ORDER SCH (01:30)
[2017-05-01] MEDS ORDERED: COUGH DROP (SUGAR FREE) LOZ 24 LOZ/1 BOX PO PRN (01:45)
--- NOTE | 2017-05-01 04:00 | NUR ---
A: Patient resting in bed. A&O x4. VSS on room air. NSR on monitor. Decreased cough following PRN neb tx and lozenges PRN. Assessment unchanged from previous. Call dumont within reach.
[2017-05-01] MEDS: SODIUM CHLORIDE 0.9% 1000ML 1,000 ML IV SCH (05:48)
[2017-05-01 05:57] LABS: HEMATOCRIT 29.2 % (37-47); HEMOGLOBIN 9.5 g/dL (12.0-16.0); MEAN CORPUSCULAR HEMOGLOBIN 29.6 pg (25-34); MEAN CORPUSCULAR HGB CONC 32.5 g/dl (32-36); MEAN PLATELET VOLUME 10.5 fL (7.4-10.4); PLATELET COUNT 219 K/uL (130-400); RED CELL DISTRIBUTION WIDTH SD 46.9 fL (36.4-46.3); WHITE BLOOD COUNT 8.42 K/uL (4.8-10.8)
[2017-05-01] MEDS ORDERED: NURSING VERBAL MED ORDER ONE (06:00)
[2017-05-01 06:33] LABS: CALCIUM 7.9 mg/dl (8.5-10.1); CREATININE 0.94 mg/dl (0.60-1.20); POTASSIUM 3.8 mmol/L (3.5-5.1)
[2017-05-01] MEDS: METOPROLOL TARTRATE 50 MG TAB PO SCH ×2 (07:59→20:38)
[2017-05-01] MEDS: CLONIDINE HCL 0.1 MG TAB PO SCH ×2 (08:00→20:39)
[2017-05-01] MEDS: CEFTRIAXONE SOD INJ 2,000 MG in DEXTROSE 5% 50ML 50 ML IV SCH (08:00)
[2017-05-01] MEDS: HEPARIN SOD 5000 UNIT/0.5 ML CARP SQ SCH ×2 (08:01→20:37)
[2017-05-01] MEDS: BOOST VANILLA OR BOOST GLUCOSE CONTROL CHOCOLATE PO SCH ×2 (08:02→19:24)
--- NOTE | 2017-05-01 12:00 | NUR ---
A: ASSESSMENT UNCHANGED. Q1H ROUNDING. CALL RINCON WITHIN REACH. WILL CONTINUE TO MONITOR.
--- NOTE | 2017-05-01 12:13 | Hospitalist Progress Note ---
Hospitalist Progress Note Date of Service May 01, 2017. Subjective Pt evaluation today including: conversation w/ patient Pt still c/o bad cough, feels the hycodan syrup irritated her throat and made her have a bad coughing spell. Ate some breakfast, a few spoonfuls of applesauce for lunch, is drinking fluids, but still low appetite. Feels she is not ready to go home yet. Had 5 beats of VT on tele overnight, asymptomatic Constitutional: No fever Eyes: No problem reported Respiratory: + cough Cardiovascular: No chest pain Abdomen: No diarrhea, No constipation All Other Systems: Reviewed and Negative Objective Vital Signs Date Time Temp Pulse Resp B/P (MAP) Pulse Ox O2 Delivery O2 Flow Rate FiO2 05/01/17 11:47 36.6 72 16 115/63 (80) 97 Room Air 05/01/17 11:16 74 18 95 Room Air 05/01/17 08:00 Room Air 05/01/17 07:55 37.1 81 16 145/67 (93) 93 Room Air 05/01/17 06:58 77 18 93 Room Air 05/01/17 04:42 37.2 91 17 115/49 (71) 95 Room Air 05/01/17 04:00 Room Air 05/01/17 01:28 73 18 95 Room Air 05/01/17 00:08 37.0 114 18 121/65 (83) 93 Room Air 05/01/17 00:00 Room Air 04/30/17 20:00 96 Room Air 04/30/17 19:48 36.9 81 18 150/65 (93) 96 Room Air 04/30/17 19:26 80 18 97 Room Air 04/30/17 16:25 76 18 95 Room Air 04/30/17 16:00 90 Room Air 04/30/17 15:05 36.5 77 16 118/57 (77) 90 Room Air Physical Exam General Appearance: WD/WN (coughing frequently), no apparent distress Eyes: normal inspection, sclerae normal ENT: hearing grossly normal Neck: trachea midline Respiratory/Chest: no respiratory distress, no accessory muscle use, + crackles (at right lower and middle lung bryant) Cardiovascular: regular rate, rhythm, no edema, no murmur Abdomen: normal bowel sounds, non tender, soft, no organomegaly Extremities: no calf tenderness (on left), + pertinent finding (right AKA) Neurologic/Psychiatric: alert, normal mood/affect, oriented x 3 Skin: normal color, warm/dry, no rash Laboratory Results Last 24 Hours Test 05/01/17 05:17 White Blood Count 8.42 K/uL Red Blood Count 3.21 M/uL Hemoglobin 9.5 g/dL Hematocrit 29.2 % Mean Corpuscular Volume 91.0 fL Mean Corpuscular Hemoglobin 29.6 pg Mean Corpuscular Hemoglobin Concent 32.5 g/dl RDW Standard Deviation 46.9 fL RDW Coefficient of Variation 14.0 % Platelet Count 219 K/uL Mean Platelet Volume 10.5 fL Sodium Level 140 mmol/L Potassium Level 3.8 mmol/L Chloride Level 110 mmol/L Carbon Dioxide Level 25 mmol/L Anion Gap 5.0 mmol/L Blood Urea Nitrogen 19 mg/dl Creatinine 0.94 mg/dl Est Creatinine Clear Calc Drug Dose 36.4 ml/min Estimated GFR () 63.2 Estimated GFR (Non- 54.5 BUN/Creatinine Ratio 20.1 Random Glucose 98 mg/dl Calcium Level 7.9 mg/dl Magnesium Level 2.1 mg/dl Assessment and Plan Ms. Hager is an 86 y/o female with PMHx of Peripheral Artery Disease S/P Multiple Angioplasties and R AKA, Chronic Diastolic CHF, lone A-fib, and HTN who presents to the ED complaining of flulike symptoms 3 days. Found to have multifocal PNA and sepsis, as well as acute hypoxemic respiratory failure. Sepsis/Community Acquired Pneumonia/Acute hypoxemic respiratory failure: Chest CT confirms chronic RML collapse worse than previous, multifocal PNA on right lung and some in lingula. Possible loculated effusion vs chronic changes. Seen by Pulm who does not think has loculated effusion, no need for thoracentesis. May need bronchoscopy if not improving. Has a h/o previous empyema on right with need for PleurX catheter drainage in 2015. Some improvement today, still with cough and malaise - continue Ceftriaxone 2 g IV daily, Zithromax 250 mg switch to po daily, will switch to po Levaquin upon dc likely tomorrow for total 7 day course -will dc Vancomycin as BCxs remained negative x 48 hrs, especially in light of neg MRSA nasal swab -dc Hycodan and try Tessalon pearls for cough - Tylenol PRN fever/pain -dc IVFs, encouraged po intake - continue Duo nebs -follow BCxs -Appreciate Pulm consult -will need f/u CXR in 4-6 weeks to ensure resolution -will keep one more day Peripheral Artery Disease S/P Angioplasties and S/P R AKA-stable, no acute issues - continue ASA 81 mg daily Chronic Diastolic CHF/HTN-stable, no evidence of fluid overload, BPs acceptable - Daily weights and I&O -continue Clonidine 0.2 mg BID and metoprolol 50 mg BID Non-sustained VT- 5 beat run on 05/01, asymptomatic. Has normal LVEF on ECHO 2014 -continue metoprolol -continue tele monitoring Lone Atrial Fibrillation: - Quick review of previous admission in 2014 suggests she had an episode of what appears to be remote atrial fibrillation related to her respiratory illness at the time - Patient does not recall ever being diagnosed with this and is not on anticoagulation -follow on tele-no A-fib -continue metoprolol Normocytic anemia- hgb dropped since admission from 12--> 9.5, review of trend over the years shows frequent anemia, previously low Folate. No bleeding at this time -follow CBC -check Folate and B12 DVT Prophylaxis: Heparin 5000 units Q12H Code Status: FULL RESUSCITATION Disposition: - [facility] - will obtain PT/OT evaluations, possibly dc to home vs SNF tomorrow
--- NOTE | 2017-05-01 13:32 | Pulmonology Progress Note ---
Pulmonary Progress Note Date of Service May 01, 2017. Attending Dr. Hubbard Subjective Patient with multifocal pneumonia who appears to be slightly improved today. She complains of continued, persistent cough. She states that she was given Hycodan cough syrup last evening at which time she had increasing cough. She states that she did not sleep well due to continued cough. She otherwise feels that her breathing has improved, and she is coughing up minimal white sputum throughout the day. She has not had a repeat chest x-ray. Her chest CT scan was reviewed and viewed by me today. It is noted that she has multifocal pneumonia. She does not have a pleural effusion this time. She does however have history in 2014 a multifocal pneumonia with empyema which was drained via PleurX catheter. Labs reviewed: White blood cell count 8.42, hemoglobin 9.5, sodium 140, potassium 3.8, chloride 110, creatinine 0.94, BUN 19, calcium 7.9, folate pending. MRSA nasal swab negative Blood cultures no growth to date Patient continues on IV vancomycin, azithromycin, and ceftriaxone at this time. Objective Vital signs reviewed. SaO2 93 to 97% on room air Afebrile Heart rate 72 Respiratory rate 16 Blood pressure 115/63 General: Patient is awake, alert, cooperative, and in no acute distress. Well developed. Well-nourished. Head: Normocephalic, Atraumatic. ENT: PERRLA, No discharge, EOMI, Sclera normal Neck: Normal ROM. Trachea midline. No stridor Respiratory: Mild coarse breath sounds at the left base. Note cough on exam which is nonproductive. No respiratory distress. No accessory muscle use. Cardiovascular: Regular rate and rhythm. No murmur appreciate. Normal S1/S2. Abdomen: Nontender to palpation. Normal bowel sounds hear throughout. No guarding. Abdomen is soft and nontender Back: Normal inspection. Extremities: No edema, cyanosis. Neuro: Alert, Oriented x 3. CN II-XII grossly intact. Sensation and motor function grossly intact. Psych: Mood and affect are normal. Assessment & Plan Multifocal pneumonia Hx of multilobar pneumonia with empyema 2014 Chronic diastolic dysfunction Paroxysmal AFib HTN Patient appears to be improving today. She did not tolerate Hycodan cough syrup last night. I recommended that the patient start on Tessalon Perles to see if this helps with her continued cough. She otherwise appears to be improving overall. She is saturating well on room air. Patient has not had a repeat chest x-ray yet at this time. Recommend repeating chest x-ray up until resolution of multifocal pneumonia. Patient currently on IV vancomycin, azithromycin, and ceftriaxone. MRSA nasal swab was negative. Recommend discontinuation of IV vancomycin. Feel that this patient can transition to p.o. antibiotics upon discharge. I did discuss patient with Dr. Higgins as well. The patient likely will be ready for discharge later today or tomorrow morning pending medical clearance. Data Medications: Current Inpatient Medications Medications (Trade) Dose Ordered Sig/[place] Route Start Time Stop Time Status Last Admin Dose Admin Acetaminophen (Tylenol Tab) 650 mg Q4H PRN PO 04/29/17 17:00 05/29/17 16:59 04/29/17 20:09 650 MG Al Hydrox/Mg Hydrox/Simethicone (Maalox Max Susp) 15 ml Q4H PRN PO 04/29/17 17:00 05/29/17 16:59 Magnesium Hydroxide (Milk Of Magnesia Susp) 30 ml Q12H PRN PO 04/29/17 17:00 05/29/17 16:59 Ondansetron HCl (Zofran Inj) 4 mg Q6H PRN IV 04/29/17 17:00 05/29/17 16:59 04/29/17 20:09 4 MG Polyethylene (Miralax Powder Packet) 17 gm DAILY PRN PO 04/29/17 17:00 05/29/17 16:59 Albuterol/ Ipratropium (Duoneb) 3 ml QIDR INH 04/29/17 20:00 05/29/17 19:59 05/01/17 11:15 3 ML Acetaminophen 100 ml @ 400 mls/hr Q8H PRN IV 04/29/17 17:30 05/29/17 17:29 Ceftriaxone Sodium 2000 mg/ Dextrose 70 ml @ 100 mls/hr Q24H IV 04/30/17 09:00 05/06/17 08:59 05/01/17 08:00 100 MLS/HR Aspirin (Ecotrin Tab) 81 mg HS PO 04/29/17 21:00 05/29/17 20:59 04/30/17 21:34 81 MG Metoprolol Tartrate (Lopressor Tab) 50 mg BID PO 04/29/17 21:00 05/29/17 20:59 05/01/17 07:59 50 MG Heparin Sodium (Porcine) (Heparin Sq 5000 Unit/0.5ml) 5,000 unit Q12 SQ 04/29/17 21:00 05/29/17 20:59 05/01/17 08:01 5,000 UNIT Clonidine HCl (Catapres Tab) 0.2 mg BID PO 04/29/17 21:00 05/29/17 20:59 05/01/17 08:00 0.2 MG Enteral Nutritional Formula (Boost) 1 can BID@1000,1900 PO 04/30/17 19:00 05/30/17 18:59 05/01/17 08:02 1 CAN Menthol (Nice Yolette) 1 yolette PRN PRN PO 05/01/17 01:45 05/31/17 01:44 Benzonatate (Tessalon Perles Cap) 100 mg Q8H PRN PO 05/01/17 12:00 05/31/17 11:59 Azithromycin (Zithromax Tab) 250 mg Q24H PO 05/01/17 14:00 05/06/17 13:59 Vital Signs: Date Time Temp Pulse Resp B/P (MAP) Pulse Ox O2 Delivery O2 Flow Rate FiO2 05/01/17 11:47 36.6 72 16 115/63 (80) 97 Room Air 05/01/17 11:16 74 18 95 Room Air 05/01/17 08:00 Room Air 05/01/17 07:55 37.1 81 16 145/67 (93) 93 Room Air 05/01/17 06:58 77 18 93 Room Air 05/01/17 04:42 37.2 91 17 115/49 (71) 95 Room Air 05/01/17 04:00 Room Air 05/01/17 01:28 73 18 95 Room Air 05/01/17 00:08 37.0 114 18 121/65 (83) 93 Room Air 05/01/17 00:00 Room Air 04/30/17 20:00 96 Room Air 04/30/17 19:48 36.9 81 18 150/65 (93) 96 Room Air 04/30/17 19:26 80 18 97 Room Air 04/30/17 16:25 76 18 95 Room Air 04/30/17 16:00 90 Room Air 04/30/17 15:05 36.5 77 16 118/57 (77) 90 Room Air Laboratory Results: Last 24 Hours Test 05/01/17 05:17 05/01/17 12:50 White Blood Count 8.42 K/uL Red Blood Count 3.21 M/uL Hemoglobin 9.5 g/dL Hematocrit 29.2 % Mean Corpuscular Volume 91.0 fL Mean Corpuscular Hemoglobin 29.6 pg Mean Corpuscular Hemoglobin Concent 32.5 g/dl RDW Standard Deviation 46.9 fL RDW Coefficient of Variation 14.0 % Platelet Count 219 K/uL Mean Platelet Volume 10.5 fL Sodium Level 140 mmol/L Potassium Level 3.8 mmol/L Chloride Level 110 mmol/L Carbon Dioxide Level 25 mmol/L Anion Gap 5.0 mmol/L Blood Urea Nitrogen 19 mg/dl Creatinine 0.94 mg/dl Est Creatinine Clear Calc Drug Dose 36.4 ml/min Estimated GFR () 63.2 Estimated GFR (Non- 54.5 BUN/Creatinine Ratio 20.1 Random Glucose 98 mg/dl Calcium Level 7.9 mg/dl Magnesium Level 2.1 mg/dl
[2017-05-01] MEDS: BENZONATATE 100MG CAP PO PRN (13:57)
[2017-05-01] MEDS: AZITHROMYCIN 250 MG TAB PO SCH (13:58)
--- NOTE | 2017-05-01 16:00 | NUR ---
A: Patient resting in bed without complaint. Denies any chest pain or SOB. Sinus rhythm on the monitor. Patient can transfer independently to wheelchair with right AKA. Non-productive cough, tessalon pearls PRN. Will continue to monitor.
[2017-05-01] MEDS ORDERED: VANCOMYCIN IV 750 MG in SODIUM CHLORIDE 0.9% 250ML 250 ML IV SCH (17:00)
--- NOTE | 2017-05-01 20:00 | NUR ---
A/ID: Assessment unchanged. Patient with moist, non-productive cough, c/o musculoskeletal chest pain from coughing, medicated with tylenol. NSR on the monitor. Appetite remains poor. Patient admitted from independent living with . and son assist patient with transportation and ADLs as patient has AKA. Patient is a supervision assist and can transfer to wheelchair independently; plans on returning home upon discharge.
[2017-05-01] MEDS: ACETAMINOPHEN 325 MG TAB PO PRN (20:38)
[2017-05-01] MEDS: ASPIRIN 81 MG ECTAB PO SCH (20:39)
[2017-05-02] VITALS (12 sets, daily range): BP systolic 136–174; BP diastolic 62–73; PULSE 77–106; TEMP 36.9–37.3; O2SAT 91–97
--- NOTE | 2017-05-02 | NUR ---
A: Patient resting in bed. A&O x4. VSS on room air. NSR on monitor. Patient denies chest pain or shortness of breath. C/O of moist non productive cough, states the lozenges help sometimes, as well the as the Tessalon pearls. She is hopeful to return home tomorrow to [place] [facility] with her . Instructed to ring for assistance. Bed alarm and Q1hour rounding in place for safety HS. Will continue to monitor.
[2017-05-02] MEDS: BENZONATATE 100MG CAP PO PRN ×2 (00:59→22:37)
--- NOTE | 2017-05-02 01:30 | NUR ---
A: Patient rang call dumont c/o persistent cough, states Tessalon pearls and lozenges are not helping, requesting PRN breathing treatment. Respiratory therapy made aware, Will continue to monitor.
[2017-05-02] MEDS: ALBUT/IPRATROP 3MG/0.5MG NEB 3 ML VIAL INH SCH ×5 (01:45→19:47)
--- NOTE | 2017-05-02 04:00 | NUR ---
A: Patient remains resting in bed, no complaints at this time. A&O x4. VSS on room air. SR on monitor. Patients cough has decreased following neb tx. Call dumont within reach. Will continue to monitor.
[2017-05-02 07:17] LABS: BASO % 0.9 %; BASO ABS # 0.09 K/uL (0-0.2); EOS % 2.7 %; EOS ABS # 0.28 K/uL (0-0.5); HEMATOCRIT 32.6 % (37-47); HEMOGLOBIN 10.6 g/dL (12.0-16.0); IG# 0.37 K/uL (0.00-0.02); LYMPH % 18.6 %; LYMPH ABS # 1.93 K/uL (1.2-3.4); MEAN CELL VOLUME 91.1 fL (80-100); MEAN CORPUSCULAR HEMOGLOBIN 29.6 pg (25-34); MEAN CORPUSCULAR HGB CONC 32.5 g/dl (32-36); MEAN PLATELET VOLUME 10.1 fL (7.4-10.4); MONO % 8.9 %; MONO ABS # 0.92 K/uL (0.11-0.59); NEUT % 65.3 %; PLATELET COUNT 273 K/uL (130-400); RED CELL DISTRIBUTION WIDTH CV 14.2 % (11.5-14.5); RED CELL DISTRIBUTION WIDTH SD 47.5 fL (36.4-46.3); WHITE BLOOD COUNT 10.39 K/uL (4.8-10.8)
[2017-05-02 07:43] LABS: CALCIUM 8.3 mg/dl (8.5-10.1); CREATININE 0.9 mg/dl (0.60-1.20); POTASSIUM 3.8 mmol/L (3.5-5.1)
[2017-05-02] MEDS: ONDANSETRON INJ 2 MG/ML 2 ML VIAL IV PRN ×2 (07:58→19:41)
[2017-05-02] MEDS: CEFTRIAXONE SOD INJ 2,000 MG in DEXTROSE 5% 50ML 50 ML IV SCH (07:58)
[2017-05-02] MEDS: CLONIDINE HCL 0.1 MG TAB PO SCH ×2 (08:00→20:20)
[2017-05-02] MEDS: METOPROLOL TARTRATE 50 MG TAB PO SCH ×2 (08:00→20:20)
--- NOTE | 2017-05-02 08:00 | NUR ---
A: PT IS A&OX4. VSS ON RA. DENIES CHEST PAIN AND SOB. PT IS OOB INDEPENDENTLY TO THE WHEELCHAIR. PT IS NSR ON MONITOR. SALINE LOCKED WITH INTERMITTENT ABX. PT IS HAS POOR APPETITE BUT TOLERATING DIET. PT IS RESTING IN BED AT THIS TIME. Q1H ROUNDING. CALL RINCON WITHIN REACH. WILL CONTINUE TO MONITOR.
[2017-05-02] MEDS: HEPARIN SOD 5000 UNIT/0.5 ML CARP SQ SCH ×2 (08:01→20:22)
[2017-05-02] MEDS: BOOST VANILLA OR BOOST GLUCOSE CONTROL CHOCOLATE PO SCH ×2 (08:02→20:24)
--- NOTE | 2017-05-02 10:07 | PULMONARY PROGRESS NOTE ---
DATE: 05/02/2017 TIME: 9:25 a.m. SUBJECTIVE: The patient is not feeling well today. She is having diarrhea. She describes it as explosive. She does not think that they were able to collect a stool sample, however. She states she usually does get diarrhea when she is in the hospital. She is still coughing. She does not feel much better in that regard. She is not expectorating anything significantly. I asked the patient if she has been losing weight. She states it is hard to tell because she cannot get on a scale. OBJECTIVE: GENERAL: The patient did not look in distress. VITAL SIGNS: Temperature is 36.9. Her highest temperature during her hospital stay has been 37.8 although she did describe having a temperature of 102 degrees Fahrenheit before admission. HEENT: Eyes exam suggested prior cataract surgery. Nares were clear. Mouth exam was unremarkable. NECK: Palpation of the neck reveals no lymph nodes. HEART: Rate currently is 75 per minute. The rhythm is regular. Blood pressure this morning 156/67. LUNGS: Auscultation of the lung bryant reveals rales, greater on the right than the left and they are better heard posteriorly than anteriorly. No wheezing was heard. Saturation was 93% on room air. ABDOMEN: Soft. Bowel sounds were active. There was no tenderness to palpation. EXTREMITIES: Showed evidence of the prior amputation. The left leg has skin color changes in the lower leg. IMPRESSIONS: 1. Multilobar pneumonia. 2. Atelectasis, right middle lobe -- somewhat chronic, but worsened than prior. 3. Diarrhea. COMMENTS AND RECOMMENDATIONS: The patient is having diarrhea. I would suggest obtaining a stool for C. diff. I do not believe the patient is ready for discharge. She has had a very significantly abnormal CAT scan of the chest and chest x-ray. We would advise a trial of a flutter valve and vibration vest. We would suggest giving the patient yogurt or a probiotic of some type in light of the diarrhea.
--- NOTE | 2017-05-02 12:00 | NUR ---
A: PT ASSESSMENT UNCHANGED. PT IS RESTING IN BED AT THIS TIME. Q1H ROUNDING. CALL RINCON WITHIN REACH. WILL CONTINUE TO MONITOR.
[2017-05-02] MEDS ORDERED: VANCOMYCIN TROUGH ONE ×2 (13:30→16:30)
[2017-05-02] MEDS: AZITHROMYCIN 250 MG TAB PO SCH (14:05)
--- NOTE | 2017-05-02 16:00 | NUR ---
A: ASSESSMENT UNCHANGED. Q1H ROUNDING. CALL RINCON WITHIN REACH. WILL CONTINUE TO MONITOR.
[2017-05-02] MEDS ORDERED: LOPERAMIDE HCL 2 MG CAP PO STA (16:45)
[2017-05-02] MEDS ORDERED: SACCHAROMYCES BOUL (FLORASTOR) 250 MG CAP PO SCH (17:00)
--- NOTE | 2017-05-02 17:16 | Hospitalist Progress Note ---
Hospitalist Progress Note Date of Service May 02, 2017. Subjective Pt evaluation today including: conversation w/ patient, conversation w/ family Pt was having explosive diarrhea this AM and C. diff was negative today. She is still coughing quite a bit, no O2 needed. She is feeling a bit better now. She does not feel like she is ready to go home yet. No abdominal pain. RN reports she has been able to transfer herself to her wheelchair from the bed without assistance. All Other Systems: Reviewed and Negative Objective Vital Signs Date Time Temp Pulse Resp B/P (MAP) Pulse Ox O2 Delivery O2 Flow Rate FiO2 05/02/17 15:17 88 18 94 Room Air 05/02/17 15:03 37.3 85 16 166/65 (98) 91 Room Air 05/02/17 12:00 Room Air 05/02/17 11:22 77 18 96 Room Air 05/02/17 11:15 36.9 81 18 174/62 (99) 94 05/02/17 08:10 36.9 106 16 93 Room Air 05/02/17 08:00 Room Air 05/02/17 07:06 81 18 97 Room Air 05/02/17 04:00 Room Air 05/02/17 04:00 37.1 86 18 156/67 (96) 91 Room Air 05/02/17 01:45 87 18 95 Room Air 05/02/17 00:23 37.1 91 18 136/73 (94) 91 Room Air 05/02/17 00:00 Room Air 05/01/17 20:00 92 Room Air 05/01/17 19:44 87 18 93 Room Air 05/01/17 19:35 37.0 88 19 167/69 (101) 92 Room Air Physical Exam General Appearance: no apparent distress, + thin Eyes: normal inspection, sclerae normal ENT: hearing grossly normal Neck: trachea midline Respiratory/Chest: no respiratory distress, no accessory muscle use, + crackles (throughout bilateral right and left lower and middle lung bryant, left upper lung field) Cardiovascular: regular rate, rhythm, no edema, no murmur Abdomen: normal bowel sounds, non tender, soft Extremities: no pedal edema, no calf tenderness, + pertinent finding (Right AKA ) Neurologic/Psychiatric: alert, normal mood/affect, oriented x 3 Skin: normal color, warm/dry, no rash Laboratory Results Last 24 Hours Test 05/02/17 07:05 White Blood Count 10.39 K/uL Red Blood Count 3.58 M/uL Hemoglobin 10.6 g/dL Hematocrit 32.6 % Mean Corpuscular Volume 91.1 fL Mean Corpuscular Hemoglobin 29.6 pg Mean Corpuscular Hemoglobin Concent 32.5 g/dl Platelet Count 273 K/uL Mean Platelet Volume 10.1 fL Neutrophils (%) (Auto) 65.3 % Lymphocytes (%) (Auto) 18.6 % Monocytes (%) (Auto) 8.9 % Eosinophils (%) (Auto) 2.7 % Basophils (%) (Auto) 0.9 % Neutrophils # (Auto) 6.80 K/uL Lymphocytes # (Auto) 1.93 K/uL Monocytes # (Auto) 0.92 K/uL Eosinophils # (Auto) 0.28 K/uL Basophils # (Auto) 0.09 K/uL RDW Standard Deviation 47.5 fL RDW Coefficient of Variation 14.2 % Immature Granulocyte % (Auto) 3.6 % Immature Granulocyte # (Auto) 0.37 K/uL Sodium Level 142 mmol/L Potassium Level 3.8 mmol/L Chloride Level 110 mmol/L Carbon Dioxide Level 26 mmol/L Anion Gap 5.0 mmol/L Blood Urea Nitrogen 15 mg/dl Creatinine 0.90 mg/dl Est Creatinine Clear Calc Drug Dose 38.1 ml/min Estimated GFR () 66.6 Estimated GFR (Non- 57.5 BUN/Creatinine Ratio 16.9 Random Glucose 94 mg/dl Calcium Level 8.3 mg/dl Magnesium Level 2.3 mg/dl Iron Level 44 mcg/dl Total Iron Binding Capacity 154 mcg/dl Transferrin 134 mg/dl Transferrin % Saturation 23 % Ferritin 487.9 ng/ml Vitamin B12 Level 1068 pg/mL Assessment and Plan Ms. Hager is an 86 y/o female with PMHx of Peripheral Artery Disease S/P Multiple Angioplasties and R AKA, Chronic Diastolic CHF, lone A-fib, and HTN who presents to the ED complaining of flu-like symptoms 3 days. Found to have multifocal PNA and sepsis, as well as acute hypoxemic respiratory failure. Sepsis/Community Acquired Pneumonia/Acute hypoxemic respiratory failure: Chest CT confirms chronic RML collapse worse than previous, multifocal PNA on right lung and some in lingula. Possible loculated effusion vs chronic changes. Seen by Pulm who does not think has loculated effusion, no need for thoracentesis. Has a h/o previous empyema on right with need for PleurX catheter drainage in 2015. Some improvement today, still with cough and malaise is improving. Not requiring O2 - continue Ceftriaxone 2 g IV daily, Zithromax 250 mg po daily x 5 days, will switch to po Levaquin upon dc likely tomorrow for total 7 day course - dcd Vancomycin as BCxs remained negative x 48 hrs, especially in light of neg MRSA nasal swab -dcd Hycodan as syrup irritated her and worsened cough -continue Tessalon pearls for cough and also try Robitussin DM - Tylenol PRN fever/pain - continue Duo nebs, added flutter valve today -follow BCxs -Appreciate Pulm consult -check CXR in AM -will need f/u CXR in 4-6 weeks to ensure resolution -will keep one more day Peripheral Artery Disease S/P Angioplasties and S/P R AKA-stable, no acute issues - continue ASA 81 mg daily Chronic Diastolic CHF/HTN-stable, no evidence of fluid overload on exam although is +4L on I/Os, weight up 1-2 kg, BPs up a bit - Daily weights and I&O -continue Clonidine 0.2 mg BID and metoprolol 50 mg BID Non-sustained VT- 5 beat run on 05/01, asymptomatic. Has normal LVEF on ECHO 2014. No further tele events since then -continue metoprolol -continue tele monitoring [place] Atrial Fibrillation: - Quick review of previous admission in 2014 suggests she had an episode of what appears to be remote atrial fibrillation related to her respiratory illness at the time - Patient does not recall ever being diagnosed with this and is not on anticoagulation -follow on tele-no A-fib -continue metoprolol Normocytic anemia- hgb dropped since admission from 12--> 9.5--> back up to 10.6 , likely dilutional, review of trend over the years shows frequent anemia, previously low Folate. No bleeding at this time. Folate and B12 now normal, Fe studies suggest anemia of chronic dz -follow CBC DVT Prophylaxis: Heparin 5000 units Q12H Code Status: FULL RESUSCITATION [facility]: [facility] - PT recommended return home, will likely dc to home tomorrow
[2017-05-02] MEDS: LOPERAMIDE HCL 2 MG CAP PO PRN (19:41)
--- NOTE | 2017-05-02 20:00 | NUR ---
A: Pt A&Ox4. C/o nausea and diarrhea at this time. PRN Immodium and zofran given. BP elevated, HS blood pressure medications given. NSR on monitor. Moist non-productive cough noted, PRN robitussin given. Hourly rounding maintained. Encouraged to ring for assistance.
[2017-05-02] MEDS: ASPIRIN 81 MG ECTAB PO SCH (20:19)
[2017-05-02] MEDS: GUAIFENESIN/DEXTROM SYRUP 100MG/10MG 5ML UDC PO PRN (20:31)
[2017-05-03] VITALS (11 sets, daily range): BP systolic 150–180; BP diastolic 72–85; PULSE 76–91; TEMP 36.5–37.5; O2SAT 90–100
--- NOTE | 2017-05-03 | NUR ---
A: Pt resting in bed at this time. No complaints. Tessalon perles given for moist cough. NSR on monitor. Stands and pivots to wheelchair independently. Encouraged to ring for assistance. Hourly rounding maintained.
[2017-05-03] MEDS: ALBUT/IPRATROP 3MG/0.5MG NEB 3 ML VIAL INH SCH ×5 (00:26→19:46)
[2017-05-03] MEDS ORDERED: LORAZEPAM 0.5 MG TAB PO STA (00:55)
--- NOTE | 2017-05-03 04:00 | NUR ---
A: Pt resting in bed at this time. No complaints of pain. NSR on monitor. Pt received 0.25 mg of Ativan to help sleep. VSS. Will continue to monitor.
[2017-05-03 07:21] LABS: BASO % 0.3 %; BASO ABS # 0.04 K/uL (0-0.2); EOS % 1.8 %; EOS ABS # 0.24 K/uL (0-0.5); HEMATOCRIT 31.7 % (37-47); HEMOGLOBIN 10.3 g/dL (12.0-16.0); IG# 0.39 K/uL (0.00-0.02); LYMPH % 13.4 %; MEAN CELL VOLUME 90.6 fL (80-100); MEAN CORPUSCULAR HEMOGLOBIN 29.4 pg (25-34); MEAN CORPUSCULAR HGB CONC 32.5 g/dl (32-36); MEAN PLATELET VOLUME 10.3 fL (7.4-10.4); NEUT % 75.6 %; NEUT ABS # 10.17 K/uL (1.4-6.5); PLATELET COUNT 265 K/uL (130-400); RED CELL DISTRIBUTION WIDTH CV 14.1 % (11.5-14.5); RED CELL DISTRIBUTION WIDTH SD 46.5 fL (36.4-46.3); WHITE BLOOD COUNT 13.44 K/uL (4.8-10.8)
[2017-05-03 07:51] LABS: CREATININE 0.83 mg/dl (0.60-1.20)
[2017-05-03 07:52] LABS: CALCIUM 8.5 mg/dl (8.5-10.1)
--- NOTE | 2017-05-03 08:29 | DIAGNOSTIC IMAGING REPORT ---
CHEST 2 VIEWS ROUTINE HISTORY: Follow-up pneumonia. COMPARISON: Chest 04/29/2017. FINDINGS: Emphysema. No pneumothorax. Small bilateral pleural effusions have progressed. Right middle lobe consolidation and patchy airspace opacities within the right midlung zone have also slightly progressed. The heart remains mildly enlarged. IMPRESSION: Slight progression of the small bilateral pleural effusions and right lung airspace opacities. This favors a pneumonia. One month chest x-ray follow-up is recommended to ensure resolution. Electronically signed by: Glenn Payne M.D. 05/03/2017 8:27 AM Dictated Date/Time: 05/03/2017 8:25 AM
[2017-05-03] MEDS: CEFTRIAXONE SOD INJ 2,000 MG in DEXTROSE 5% 50ML 50 ML IV SCH (08:41)
[2017-05-03] MEDS: CLONIDINE HCL 0.1 MG TAB PO SCH ×2 (08:41→21:04)
[2017-05-03] MEDS: METOPROLOL TARTRATE 50 MG TAB PO SCH ×2 (08:42→21:04)
[2017-05-03] MEDS: SACCHAROMYCES BOUL (FLORASTOR) 250 MG CAP PO SCH (08:42)
[2017-05-03] MEDS: HEPARIN SOD 5000 UNIT/0.5 ML CARP SQ SCH ×2 (08:44→21:09)
[2017-05-03] MEDS ORDERED: VANCOMYCIN IV 1,000 MG in SODIUM CHLORIDE 0.9% 250ML 250 ML IV SCH (09:00)
[2017-05-03] MEDS ORDERED: CEFEPIME IV 2,000 MG in DEXTROSE 5% 100ML 100 ML IV SCH (09:00)
[2017-05-03] MEDS ORDERED: CEFEPIME IV 2,000 MG in DEXTROSE 5% 100ML 100 ML IV ONE (10:00)
[2017-05-03] MEDS ORDERED: CEFEPIME IV 2,000 MG in SYRINGE 7.5 ML IV ONE (10:00)
[2017-05-03] MEDS ORDERED: VANCOMYCIN CONSULT ACTIVE PRN (10:15)
--- NOTE | 2017-05-03 10:18 | NUR ---
A: Assessment complete. LLL crackles noted. HOB elevated 45 degrees. Encouraged usage of incentive spirometer hourly. Patient tolerated 100% breakfast. OOB to the bathroom with one assist.
--- NOTE | 2017-05-03 10:28 | Pharmacy Progress Note ---
Pharmacy Abx Dose Short Note Date of Service May 03, 2017. Assessment & Plan Pt continues to not feel well. She was on Vanco/Zithromax/Rocephin then de- escalated to just Rocephin. Per pulm recs re-start her on Vancomycin and add Cefepime. Her last Vancomycin dose was 04/30/17 ~1700. Her half-life has hovered around 18-21hrs. Almost 3-4 half-lives have passed since the last dose. I suspect the amount of Vancomycin in her system is negligible. Pt population p' kinetics: t1/2=18hrs, ke=0.0384, Vd=0.7. Vanco: * Vanco 1500mg (25mg/kg) to achieve a peak of ~36mcg/mL * Then Vanco 1000mg (15mg/kg) set to start at 0400 on 05/04/17 * Goal trough for HAP 15-20mcg/mL * Trough ordered for 05/06/17 @1530 prior to the 4th maintenance dose. Pharmacy will continue to follow and will adjust dose/frequency as necessary. Thank you.
[2017-05-03] MEDS ORDERED: VANCOMYCIN IV 1,500 MG in SODIUM CHLORIDE 0.9% 500ML 500 ML IV ONE (10:30)
[2017-05-03] MEDS: BOOST VANILLA OR BOOST GLUCOSE CONTROL CHOCOLATE PO SCH ×2 (10:40→18:45)
--- NOTE | 2017-05-03 12:00 | NUR ---
A: Assessment unchanged. Patient resting in chair. Tolerated diet. Continued encouraged usage incentive spirometer. Left forearm sl intact. Educated to ring for assistance as needed.
--- NOTE | 2017-05-03 12:06 | Pulmonology Progress Note ---
Pulmonary Progress Note Date of Service May 03, 2017. Attending Dr. Hubbard Subjective Ms. Hager continues to feel poorly this morning. She has had continued diarrhea, retching, and nausea. She has not been vomiting, but has a poor appetite. She also continues to have nagging cough which is nonproductive. C. Diff toxin negative Blood cultures NGTD. MRSA nasal swab negative. Labs reviewed: WBC 13.44 Hgb 10.3 Creatinine 0.83 She was changed from IV Ceftriaxone to IV Cefepime and Vancomycin this morning. She does not feel that she is having relief from her cough with Tessalon Perles or cough drops. She did receive Ativan last night and slept well. Patient is trying to use flutter valve and incentive spirometer today. CXR viewed and reviewed with Dr. Hubbard. Note increased b/l pleural effusions today. Feel that infiltrates otherwise have slightly decrease. Objective VS reviewed: Afebrile this AM HR 91 RR 16 BP 177/73 SaO2 90-98% on room air. General: Patient is awake, alert, cooperative, and in no acute distress. Ill appearing today. Head: Normocephalic, Atraumatic. ENT: PERRLA, No discharge, EOMI, Sclera normal Neck: Normal ROM. Trachea midline. No stridor Respiratory: Mild coarse breath sounds at the bases. Note cough on exam which is nonproductive. No respiratory distress. No accessory muscle use. Incentive spirometer able to get up to 500. Cardiovascular: Regular rate and rhythm. No murmur appreciate. Normal S1/S2. Abdomen: Nontender to palpation. Normal bowel sounds hear throughout. No guarding. Abdomen is soft and nontender Back: Normal inspection. Neuro: Alert, Oriented x 3. CN II-XII grossly intact. Sensation and motor function grossly intact. Psych: Mood and affect are normal. Assessment & Plan Multifocal pneumonia Hx of multilobar pneumonia with empyema 2014 Chronic diastolic dysfunction Paroxysmal AFib HTN Diarrhea/Nausea Bilateral pleural effusions Patient is not feeling well with continued diarrhea and nausea. Primary team following for these symptoms. Patient is taking probiotic. Abx have been changed and spectrum broadened. This seems reasonable for now. Tessalon Perles not really helping with cough. Patient is allergic to codeine, therefore cannot use Hycodan cough syrup for this patient. Ativan did help her sleep last night. Recommend close monitoring of effusions. Unable to trial diuretics due to continued diarrhea. Recommend following CXR to resolution or improvement. Consider echocardiogram to evaluate reason for increasing pleural effusions especially with her history of empyema. If continued increase, may need to consider thoracentesis for fluid evaluation. Otherwise follow medical management per primary team. Pulm will follow. Data Medications: Current Inpatient Medications Medications (Trade) Dose Ordered Sig/[place] Route Start Time Stop Time Status Last Admin Dose Admin Acetaminophen (Tylenol Tab) 650 mg Q4H PRN PO 04/29/17 17:00 05/29/17 16:59 05/01/17 20:38 650 MG Al Hydrox/Mg Hydrox/Simethicone (Maalox Max Susp) 15 ml Q4H PRN PO 04/29/17 17:00 05/29/17 16:59 Magnesium Hydroxide (Milk Of Magnesia Susp) 30 ml Q12H PRN PO 04/29/17 17:00 05/29/17 16:59 Ondansetron HCl (Zofran Inj) 4 mg Q6H PRN IV 04/29/17 17:00 05/29/17 16:59 05/02/17 19:41 4 MG Polyethylene (Miralax Powder Packet) 17 gm DAILY PRN PO 04/29/17 17:00 05/29/17 16:59 Albuterol/ Ipratropium (Duoneb) 3 ml QIDR INH 04/29/17 20:00 05/29/17 19:59 05/03/17 11:30 3 ML Aspirin (Ecotrin Tab) 81 mg HS PO 04/29/17 21:00 05/29/17 20:59 05/02/17 20:19 81 MG Metoprolol Tartrate (Lopressor Tab) 50 mg BID PO 04/29/17 21:00 05/29/17 20:59 05/03/17 08:42 50 MG Heparin Sodium (Porcine) (Heparin Sq 5000 Unit/0.5ml) 5,000 unit Q12 SQ 04/29/17 21:00 05/29/17 20:59 05/03/17 08:44 5,000 UNIT Clonidine HCl (Catapres Tab) 0.2 mg BID PO 04/29/17 21:00 05/29/17 20:59 05/03/17 08:41 0.2 MG Enteral Nutritional Formula (Boost) 1 can BID@1000,1900 PO 04/30/17 19:00 05/30/17 18:59 05/03/17 10:40 1 CAN Menthol (Nice Yolette) 1 yolette PRN PRN PO 05/01/17 01:45 05/31/17 01:44 Benzonatate (Tessalon Perles Cap) 100 mg Q8H PRN PO 05/01/17 12:00 05/31/17 11:59 05/02/17 22:37 100 MG Azithromycin (Zithromax Tab) 250 mg Q24H PO 05/01/17 14:00 05/06/17 13:59 05/02/17 14:05 250 MG Loperamide HCl (Imodium Cap) 2 mg Q2H PRN PO 05/02/17 16:45 06/01/17 16:44 05/02/17 19:41 2 MG Saccharomyces Boulardii (Florastor Cap) 250 mg DAILY PO 05/03/17 09:00 06/02/17 08:59 05/03/17 08:42 250 MG Guaifenesin/ Dextromethorphan (Robitussin-Dm Syrup) 5 ml Q4H PRN PO 05/02/17 17:15 06/01/17 17:14 05/02/17 20:31 5 ML Cefepime HCl 2000 mg/Syringe 20 ml @ 5 mls/min Q12H IV 05/03/17 22:00 05/10/17 09:59 Vancomycin HCl 1500 mg/Sodium Chloride 530 ml @ 200 mls/hr TODAY@1030 ONCE IV 05/03/17 10:30 05/03/17 13:08 05/03/17 10:52 200 MLS/HR Vancomycin HCl 1000 mg/Sodium Chloride 270 ml @ 125 mls/hr Q20H IV 05/04/17 04:00 05/11/17 03:59 Vancomycin HCl (Consult) 1 ea UD PRN N/A 05/03/17 10:15 06/02/17 10:14 Vital Signs: Date Time Temp Pulse Resp B/P (MAP) Pulse Ox O2 Delivery O2 Flow Rate FiO2 05/03/17 11:30 77 18 91 Room Air 05/03/17 11:29 37.3 76 16 150/72 (98) 91 Room Air 05/03/17 08:00 Room Air 05/03/17 07:38 37.4 91 16 180/73 (108) 98 Room Air 05/03/17 07:03 84 18 94 Room Air 05/03/17 04:00 37.5 91 18 177/73 (107) 90 Room Air 05/03/17 04:00 Room Air 05/03/17 00:27 82 20 91 Room Air 05/03/17 00:00 Room Air 05/02/17 22:58 37.3 85 18 152/72 (98) 91 Room Air 05/02/17 20:00 Room Air 05/02/17 19:49 97 18 91 Room Air 05/02/17 19:39 37.2 100 18 173/63 (99) 93 Room Air 05/02/17 15:17 88 18 94 Room Air 05/02/17 15:03 37.3 85 16 166/65 (98) 91 Room Air 05/02/17 12:00 Room Air Laboratory Results: Last 24 Hours Test 05/03/17 07:05 White Blood Count 13.44 K/uL Red Blood Count 3.50 M/uL Hemoglobin 10.3 g/dL Hematocrit 31.7 % Mean Corpuscular Volume 90.6 fL Mean Corpuscular Hemoglobin 29.4 pg Mean Corpuscular Hemoglobin Concent 32.5 g/dl Platelet Count 265 K/uL Mean Platelet Volume 10.3 fL Neutrophils (%) (Auto) 75.6 % Lymphocytes (%) (Auto) 13.4 % Monocytes (%) (Auto) 6.0 % Eosinophils (%) (Auto) 1.8 % Basophils (%) (Auto) 0.3 % Neutrophils # (Auto) 10.17 K/uL Lymphocytes # (Auto) 1.80 K/uL Monocytes # (Auto) 0.80 K/uL Eosinophils # (Auto) 0.24 K/uL Basophils # (Auto) 0.04 K/uL RDW Standard Deviation 46.5 fL RDW Coefficient of Variation 14.1 % Immature Granulocyte % (Auto) 2.9 % Immature Granulocyte # (Auto) 0.39 K/uL Sodium Level 140 mmol/L Potassium Level 4.0 mmol/L Chloride Level 108 mmol/L Carbon Dioxide Level 24 mmol/L Anion Gap 9.0 mmol/L Blood Urea Nitrogen 11 mg/dl Creatinine 0.83 mg/dl Est Creatinine Clear Calc Drug Dose 41.3 ml/min Estimated GFR () 73.5 Estimated GFR (Non- 63.4 BUN/Creatinine Ratio 13.5 Random Glucose 88 mg/dl Calcium Level 8.5 mg/dl
--- NOTE | 2017-05-03 13:11 | NUR ---
Discharge planning. [facility], pt/ot agree. No additional needs identified at this time. Case management to follow.
[2017-05-03] MEDS: AZITHROMYCIN 250 MG TAB PO SCH (13:57)
[2017-05-03] MEDS ORDERED: FUROSEMIDE INJ 20 MG in SYRINGE 0 ML IV ONE (15:15)
[2017-05-03] MEDS: LOPERAMIDE HCL 2 MG CAP PO PRN ×2 (15:35→18:45)
--- NOTE | 2017-05-03 16:00 | NUR ---
ID/A: Patient is alert and oriented times four. Patient has no complaint of chest pain or shortness of breath. Patient has a cough that patient reports is productive of thin clear mucous patient has crackles in bilateral bases. Patient transitions from bed to wheel chair independently. Patient is resting with call dumont in reach.
--- NOTE | 2017-05-03 18:51 | Hospitalist Progress Note ---
Hospitalist Progress Note Date of Service May 03, 2017. Subjective Pt evaluation today including: conversation w/ patient, conversation w/ validation consultant (Pulmonology) Pt had an increase in her WBC count today, afebrile. CXR with bilat pleural effusions today. Cough is actually now slightly improved. She is requesting to have the ativan again for sleep tonight as that is the only way she has been able to sleep in the last 3 nights. Continues with multiple loose BMs today, no blood, no abd pain. Was given one dose lasix and has been urinating quite frequently now Tele with ST with PACs, PVCs, burst of SVT this AM x 7 seconds at about 150 bpm All Other Systems: Reviewed and Negative Objective Vital Signs Date Time Temp Pulse Resp B/P (MAP) Pulse Ox O2 Delivery O2 Flow Rate FiO2 05/03/17 16:00 Room Air 05/03/17 15:42 37.0 86 18 160/85 (110) 100 Room Air 05/03/17 14:34 84 18 92 Room Air 05/03/17 12:00 Room Air 05/03/17 11:30 77 18 91 Room Air 05/03/17 11:29 37.3 76 16 150/72 (98) 91 Room Air 05/03/17 08:00 Room Air 05/03/17 07:38 37.4 91 16 180/73 (108) 98 Room Air 05/03/17 07:03 84 18 94 Room Air 05/03/17 04:00 37.5 91 18 177/73 (107) 90 Room Air 05/03/17 04:00 Room Air 05/03/17 00:27 82 20 91 Room Air 05/03/17 00:00 Room Air 05/02/17 22:58 37.3 85 18 152/72 (98) 91 Room Air 05/02/17 20:00 Room Air 05/02/17 19:49 97 18 91 Room Air 05/02/17 19:39 37.2 100 18 173/63 (99) 93 Room Air Physical Exam General Appearance: no apparent distress, + thin Eyes: normal inspection, sclerae normal ENT: hearing grossly normal Neck: trachea midline Respiratory/Chest: no respiratory distress, no accessory muscle use, + crackles (at bases and left middle lung field, otherwise clearer than previous) Cardiovascular: regular rate, rhythm, no edema, no murmur Abdomen: normal bowel sounds, non tender, soft, no organomegaly Extremities: no pedal edema, no calf tenderness, + pertinent finding (Right AKA ) Neurologic/Psychiatric: alert, normal mood/affect, oriented x 3 Skin: normal color, warm/dry, no rash Laboratory Results Last 24 Hours Test 05/03/17 07:05 White Blood Count 13.44 K/uL Red Blood Count 3.50 M/uL Hemoglobin 10.3 g/dL Hematocrit 31.7 % Mean Corpuscular Volume 90.6 fL Mean Corpuscular Hemoglobin 29.4 pg Mean Corpuscular Hemoglobin Concent 32.5 g/dl Platelet Count 265 K/uL Mean Platelet Volume 10.3 fL Neutrophils (%) (Auto) 75.6 % Lymphocytes (%) (Auto) 13.4 % Monocytes (%) (Auto) 6.0 % Eosinophils (%) (Auto) 1.8 % Basophils (%) (Auto) 0.3 % Neutrophils # (Auto) 10.17 K/uL Lymphocytes # (Auto) 1.80 K/uL Monocytes # (Auto) 0.80 K/uL Eosinophils # (Auto) 0.24 K/uL Basophils # (Auto) 0.04 K/uL RDW Standard Deviation 46.5 fL RDW Coefficient of Variation 14.1 % Immature Granulocyte % (Auto) 2.9 % Immature Granulocyte # (Auto) 0.39 K/uL Sodium Level 140 mmol/L Potassium Level 4.0 mmol/L Chloride Level 108 mmol/L Carbon Dioxide Level 24 mmol/L Anion Gap 9.0 mmol/L Blood Urea Nitrogen 11 mg/dl Creatinine 0.83 mg/dl Est Creatinine Clear Calc Drug Dose 41.3 ml/min Estimated GFR () 73.5 Estimated GFR (Non- 63.4 BUN/Creatinine Ratio 13.5 Random Glucose 88 mg/dl Calcium Level 8.5 mg/dl Assessment and Plan Ms. Hager is an 86 y/o female with PMHx of Peripheral Artery Disease S/P Multiple Angioplasties and R AKA, Chronic Diastolic CHF, lone A-fib, and HTN who presents to the ED complaining of flu-like symptoms 3 days. Found to have multifocal PNA and sepsis, as well as acute hypoxemic respiratory failure. Sepsis/Community Acquired Pneumonia/Acute hypoxemic respiratory failure/Pleural effusions bilat: Chest CT confirms chronic RML collapse worse than previous, multifocal PNA on right lung and some in lingula. Possible loculated effusion vs chronic changes. Seen by Pulm who does not think has loculated effusion, no need for thoracentesis. Has a h/o previous empyema on right with need for PleurX catheter drainage in 2015. Not requiring O2 Today with worsening of leukocytosis again to 13k and CXR now with bilat pleural effusions, probably volume overload. -broaden abx coverage due to worsening leukocytosis given that it worsened after stopping Vanco (after 48 hr empiric coverage and neg MRSA swab)--> change to Cefepime, Vanco, finished 5 days of azithro today -dcd Hycodan as syrup irritated her and worsened cough -continue Tessalon pearls and and also try Robitussin DM for cough - Tylenol PRN fever/pain - continue Duo nebs, added flutter valve -follow BCxs NGTD -Appreciate Pulm consult -lasix 20mg IV x 1 now for volume overload -check CXR again in AM -will need f/u CXR in 4-6 weeks to ensure resolution Peripheral Artery Disease S/P Angioplasties and S/P R AKA-stable, no acute issues - continue ASA 81 mg daily Acute on Chronic Diastolic CHF/HTN-stable, now with evidence of fluid overload on exam with new bilat pleural effusions and is +5L on I/Os, weight up 4 kg, BPs up a bit - continue Daily weights and I&O -continue Clonidine 0.2 mg BID and metoprolol 50 mg BID -lasix 20mg IV x 1 today and redose as needed Non-sustained VT- 5 beat run on 05/01, asymptomatic. Has normal LVEF on ECHO 2014. Had brief SVT run today 7 beats -continue metoprolol -continue tele monitoring [place] Atrial Fibrillation: - Quick review of previous admission in 2014 suggests she had an episode of what appears to be remote atrial fibrillation related to her respiratory illness at the time - Patient does not recall ever being diagnosed with this and is not on anticoagulation -follow on tele-no A-fib -continue metoprolol Normocytic anemia- hgb dropped since admission from 12--> 9.5--> back up to 10.3 , likely dilutional, review of trend over the years shows frequent anemia, previously low Folate. No bleeding at this time. Folate and B12 now normal, Fe studies suggest anemia of chronic dz -follow CBC Diarrhea-continues, C. diff negative. Likely secondary to antibiotics. Azithromycin last dose today -continue loperamide, probiotics -if persists, will repeat C. diff stool ag on 05/04 (3 days from the last) DVT Prophylaxis: Heparin 5000 units Q12H Code Status: FULL RESUSCITATION [facility]: - [facility] - PT recommended return home when medically stable
--- NOTE | 2017-05-03 20:00 | NUR ---
A: Upon assessment pt alert & oriented x 4. Lungs with crackles in bases. Pt with nonproductive cough, refuses cough medications. Requests ativan at HS. BKA. Pt transfers to wheelchair independently. Pt with IV site in left FA. Pt c/o of pain with push. IV team paged. Site checked by IV team and found to be usable. Pt declined new site. Pt denies further needs. Will continue to monitor.
[2017-05-03] MEDS: ASPIRIN 81 MG ECTAB PO SCH (21:04)
[2017-05-03] MEDS: LORAZEPAM 0.5 MG TAB PO PRN (21:10)
[2017-05-03] MEDS: CEFEPIME IV 2,000 MG in SYRINGE 7.5 ML IV SCH (21:14)
[2017-05-04] VITALS (11 sets, daily range): BP systolic 147–188; BP diastolic 61–77; PULSE 69–99; TEMP 36.4–36.9; O2SAT 91–98
--- NOTE | 2017-05-04 00:05 | NUR ---
A: Pt resting in bed with eyes closed. Denies further needs. Will continue to monitor.
--- NOTE | 2017-05-04 04:00 | NUR ---
A: No change in pt condition. Pt resting in bed with eyes closed. Will continue to monitor.
--- NOTE | 2017-05-04 04:00 | NUR ---
A: No change in pt condition. Denies further needs. Telemetry maintained. Will continue to monitor.
[2017-05-04] MEDS: VANCOMYCIN IV 1,000 MG in SODIUM CHLORIDE 0.9% 250ML 250 ML IV SCH ×2 (04:15→23:33)
[2017-05-04 06:07] LABS: BASO % 0.4 %; BASO ABS # 0.06 K/uL (0-0.2); EOS % 2.3 %; EOS ABS # 0.31 K/uL (0-0.5); HEMATOCRIT 30.7 % (37-47); IG# 0.41 K/uL (0.00-0.02); LYMPH % 12.7 %; LYMPH ABS # 1.74 K/uL (1.2-3.4); MEAN CELL VOLUME 91.1 fL (80-100); MEAN CORPUSCULAR HEMOGLOBIN 29.7 pg (25-34); MEAN CORPUSCULAR HGB CONC 32.6 g/dl (32-36); MEAN PLATELET VOLUME 10.1 fL (7.4-10.4); MONO % 5.6 %; MONO ABS # 0.76 K/uL (0.11-0.59); PLATELET COUNT 286 K/uL (130-400); RED CELL DISTRIBUTION WIDTH SD 46.1 fL (36.4-46.3); WHITE BLOOD COUNT 13.68 K/uL (4.8-10.8)
[2017-05-04 06:38] LABS: CALCIUM 8.1 mg/dl (8.5-10.1); CREATININE 0.98 mg/dl (0.60-1.20); POTASSIUM 3.8 mmol/L (3.5-5.1)
[2017-05-04] MEDS: ALBUT/IPRATROP 3MG/0.5MG NEB 3 ML VIAL INH SCH ×4 (07:15→19:35)
--- NOTE | 2017-05-04 08:15 | NUR ---
a: pt alert and oriented. pt denies pain. dry cough noted, given tessalon rasta per order. saline lock intact. monitor on, SR. pt independently transfers from bed to w/c and moves into bathroom. tolerating diet. voiding without difficulty. discharge uncertain at this time. call dumont in reach.
[2017-05-04] MEDS: CLONIDINE HCL 0.1 MG TAB PO SCH ×2 (08:29→21:32)
[2017-05-04] MEDS: METOPROLOL TARTRATE 50 MG TAB PO SCH ×2 (08:29→21:27)
[2017-05-04] MEDS: BENZONATATE 100MG CAP PO PRN (08:29)
[2017-05-04] MEDS: SACCHAROMYCES BOUL (FLORASTOR) 250 MG CAP PO SCH (08:29)
--- NOTE | 2017-05-04 09:00 | DIAGNOSTIC IMAGING REPORT ---
CHEST 2 VIEWS ROUTINE CLINICAL HISTORY: 86 years-old Female presenting with f/u PNA, pleural effusions. TECHNIQUE: Portable upright AP view of the chest was obtained. COMPARISON: 05/03/2017. FINDINGS: Atherosclerosis of aortic arch. Cardiac silhouette enlarged. Persistent right mid and left basilar opacity. Small bilateral pleural effusions. No pneumothorax. Degenerative changes of the thoracic spine. Upper abdomen normal. IMPRESSION: 1. Mild cardiomegaly with persistent bilateral opacities and bilateral pleural effusions. This could represent congestive changes mild pulmonary edema, however, infection or aspiration cannot be excluded. Electronically signed by: Ahsan Ponce M.D. 05/04/2017 8:58 AM Dictated Date/Time: 05/04/2017 8:57 AM
[2017-05-04] MEDS ORDERED: METOPROLOL TARTRATE 25 MG TAB PO STA (09:29)
[2017-05-04] MEDS ORDERED: FUROSEMIDE INJ 20 MG in SYRINGE 0 ML IV ONE (09:45)
[2017-05-04] MEDS: HEPARIN SOD 5000 UNIT/0.5 ML CARP SQ SCH ×2 (09:48→21:10)
[2017-05-04] MEDS: BOOST VANILLA OR BOOST GLUCOSE CONTROL CHOCOLATE PO SCH ×2 (10:00→19:00)
[2017-05-04] MEDS: CEFEPIME IV 2,000 MG in SYRINGE 7.5 ML IV SCH ×2 (10:00→21:33)
--- NOTE | 2017-05-04 11:14 | PULMONARY PROGRESS NOTE ---
DATE: 05/04/2017 TIME: 10:45 a.m. SUBJECTIVE: The patient is still having diarrhea. She estimates about 6 loose bowel movements per day. She is eating some. Her appetite is not great. She feels a little stronger. She is not complaining of shortness of breath. She persists with a cough, which for the most part is dry with only a small amount of clear sputum. OBJECTIVE: VITAL SIGNS: Temperature is 36.7. Her heart rate is 81 per minute. The rhythm is regular. ENT: Exam was unremarkable. LUNGS: Auscultation of the lung bryant revealed decreased breath sounds bilaterally. Few scattered rales are heard. Blood pressure is elevated at 188/67. Oxygen saturation is 91% on room air. ABDOMEN: Soft. Bowel sounds were present. EXTREMITIES: As previous, she has evidence of prior amputation. DIAGNOSTIC STUDIES: She had another followup chest x-ray today. It again shows bilateral pleural effusions. These are relatively small, but they were not seen on her baseline chest x-ray at admission. She still has some bilateral opacities greater on the right. The atelectatic changes in the right hilum, I believe, are better than when she first presented. LABORATORY DATA: White count today is 13.68. This reflects no change from yesterday. Hemoglobin is 10. Platelets are 286,000. Electrolytes today show sodium 141, potassium 3.8, chloride 107, and bicarbonate 29. BUN is 12 with a creatinine of 0.98. IMPRESSIONS: 1. Pneumonia. 2. Right middle lobe atelectasis. 3. Pleural effusions bilaterally. 4. Diarrhea. COMMENTS AND RECOMMENDATIONS: The patient actually is looking better today. Hopefully, the diarrhea will pass. She is still on vancomycin and cefepime. She continues to get the nebulizer treatments. Would continue same for now.
--- NOTE | 2017-05-04 12:03 | NUR ---
a: pt alert and oriented. pt denies pain. dry cough noted, given tessalon rasta per order. saline lock intact. monitor on, SR. pt independently transfers from bed to w/c. tolerating diet. voiding without difficulty. discharge uncertain at this time. call dumont in reach.
--- NOTE | 2017-05-04 16:12 | Hospitalist Progress Note ---
Hospitalist Progress Note Date of Service May 04, 2017. Subjective Pt evaluation today including: conversation w/ patient Pt reports ongoing diarrhea. Was given lasix this AM and every time she goes to urinate, small amounts of stool came out. Still low appetite but RN reports pt is eating most of her meals. Cough is maybe a bit better, nonproductive. Had a brief burst of atrial tachycardia to 107 today on tele, otherwise NSR, ST Constitutional: No fever All Other Systems: Reviewed and Negative Objective Vital Signs Date Time Temp Pulse Resp B/P (MAP) Pulse Ox O2 Delivery O2 Flow Rate FiO2 05/04/17 15:45 71 16 93 Room Air 05/04/17 15:02 36.6 76 17 153/70 (97) 98 05/04/17 12:04 Room Air 05/04/17 11:32 36.7 70 18 147/65 (92) 93 05/04/17 11:13 69 16 94 Room Air 05/04/17 10:00 149/73 (98) 05/04/17 08:45 Room Air 05/04/17 07:16 36.7 90 18 188/67 (107) 91 05/04/17 07:15 82 16 92 Room Air 05/04/17 04:30 36.9 78 18 160/69 (99) 93 Room Air 05/04/17 04:05 Room Air 05/04/17 00:05 Room Air 05/03/17 23:02 36.5 84 18 153/74 (100) 91 Room Air 05/03/17 20:05 Room Air 05/03/17 19:51 36.8 83 18 177/79 (111) 96 Room Air 05/03/17 19:47 80 16 95 Room Air Physical Exam General Appearance: no apparent distress, + thin (appears brighter today, not toxic-appearing) Eyes: normal inspection, sclerae normal ENT: hearing grossly normal, pharynx normal Neck: trachea midline Respiratory/Chest: no respiratory distress, no accessory muscle use, + crackles (at bases and left middle lung field bilat, decreased BS at left base) Cardiovascular: regular rate, rhythm, no edema, no murmur Abdomen: normal bowel sounds, non tender, soft Extremities: no pedal edema, no calf tenderness, + pertinent finding (Right AKA ) Neurologic/Psychiatric: alert, normal mood/affect, oriented x 3 Skin: normal color, warm/dry, no rash Laboratory Results Last 24 Hours Test 05/04/17 05:40 White Blood Count 13.68 K/uL Red Blood Count 3.37 M/uL Hemoglobin 10.0 g/dL Hematocrit 30.7 % Mean Corpuscular Volume 91.1 fL Mean Corpuscular Hemoglobin 29.7 pg Mean Corpuscular Hemoglobin Concent 32.6 g/dl Platelet Count 286 K/uL Mean Platelet Volume 10.1 fL Neutrophils (%) (Auto) 76.0 % Lymphocytes (%) (Auto) 12.7 % Monocytes (%) (Auto) 5.6 % Eosinophils (%) (Auto) 2.3 % Basophils (%) (Auto) 0.4 % Neutrophils # (Auto) 10.40 K/uL Lymphocytes # (Auto) 1.74 K/uL Monocytes # (Auto) 0.76 K/uL Eosinophils # (Auto) 0.31 K/uL Basophils # (Auto) 0.06 K/uL RDW Standard Deviation 46.1 fL RDW Coefficient of Variation 14.0 % Immature Granulocyte % (Auto) 3.0 % Immature Granulocyte # (Auto) 0.41 K/uL Sodium Level 141 mmol/L Potassium Level 3.8 mmol/L Chloride Level 107 mmol/L Carbon Dioxide Level 29 mmol/L Anion Gap 5.0 mmol/L Blood Urea Nitrogen 12 mg/dl Creatinine 0.98 mg/dl Est Creatinine Clear Calc Drug Dose 34.9 ml/min Estimated GFR () 60.1 Estimated GFR (Non- 51.9 BUN/Creatinine Ratio 11.9 Random Glucose 82 mg/dl Calcium Level 8.1 mg/dl Magnesium Level 2.0 mg/dl Assessment and Plan Ms. Hager is an 86 y/o female with PMHx of PAD S/P Multiple Angioplasties and R AKA, Chronic Diastolic CHF, lone A-fib, and HTN who presents to the ED complaining of flu-like symptoms 3 days. Found to have multifocal PNA and sepsis, as well as acute hypoxemic respiratory failure. Sepsis/Community Acquired Pneumonia/Acute hypoxemic respiratory failure/Pleural effusions bilat: Chest CT confirms chronic RML collapse worse than previous, multifocal PNA on right lung and some in lingula. Possible loculated effusion vs chronic changes. Seen by Pulm who does not think has loculated effusion, no need for thoracentesis. Has a h/o previous empyema on right with need for PleurX catheter drainage in 2014. Not requiring O2 Had worsening of leukocytosis to 13k after being off broad spectrum abx, and CXR worsened with bilat pleural effusions, probably volume overload, but abx broadened again. Leukocytosis persists but stable today at 13k. Repeat CXR 05/04 with slightly improved bilat pleural effusions as per my personal review, persistent bibasilar infiltrates, RML chronic changes -continue Cefepime, Vanco, finished 5 days of azithro -dcd Hycodan as syrup irritated her and worsened cough -continue Tessalon pearls and Robitussin DM for cough - Tylenol PRN fever/pain - continue Duo nebs, flutter valve -follow BCxs NGTD -Appreciate Pulm consult -gave another lasix 20mg IV x 1 today for volume overload and is diuresing by report but no I/Os recorded -will need f/u CXR in 4-6 weeks to ensure resolution Peripheral Artery Disease S/P Angioplasties and S/P R AKA-stable, no acute issues - continue ASA 81 mg daily Acute on Chronic Diastolic CHF/HTN-stable, now with evidence of fluid overload on exam with new bilat pleural effusions and is has been fluid positive on I/Os , weight up 4 kg, BPs up a bit. Weight now down 1.5kg since starting diuresis - continue Daily weights and I&O however pt going to bathroom and not using hat for measurements due to diarrhea -continue Clonidine 0.2 mg BID and increase metoprolol to 75 mg BID -gave another dose of lasix 20mg IV x 1 today and redose as needed Non-sustained VT- 5 beat run on 05/01, asymptomatic. Has normal LVEF on ECHO 2014. Had brief SVT run 7 beats 05/03, now brief atrial tach today. Asymptomatic -continue metoprolol and increase dose as above -continue tele monitoring Lone Atrial Fibrillation: - Quick review of previous admission in 2014 suggests she had an episode of what appears to be remote atrial fibrillation related to her respiratory illness at the time - Patient does not recall ever being diagnosed with this and is not on anticoagulation -follow on tele-no A-fib -continue metoprolol Normocytic anemia- hgb dropped since admission from 12--> 9.5--> back up to 10.0 , likely dilutional, review of trend over the years shows frequent anemia, previously low Folate. No bleeding at this time. Folate and B12 now normal, Fe studies suggest anemia of chronic dz -follow CBC Diarrhea-continues, C. diff negative. Likely secondary to antibiotics. Azithromycin now completed. WBC count elevated and could be from infectious diarrhea? -continue loperamide, probiotics -if persists, will repeat C. diff stool ag on 05/04 (3 days from the last) DVT Prophylaxis: Heparin 5000 units Q12H Code Status: FULL RESUSCITATION [facility]: [facility] - PT recommended return home when medically stable
--- NOTE | 2017-05-04 16:45 | NUR ---
a: pt alert and oriented. pt denies pain. saline lock intact. monitor on, SR. pt independently transfers from bed to w/c. tolerating diet. voiding without difficulty. discharge uncertain at this time. call dumont in reach.
[2017-05-04] MEDS: LOPERAMIDE HCL 2 MG CAP PO PRN (18:01)
[2017-05-04] MEDS: ONDANSETRON INJ 2 MG/ML 2 ML VIAL IV PRN (18:01)
--- NOTE | 2017-05-04 18:25 | NUR ---
a: pt given zofran for complaints of nausea and unable to eat. also given immodium for diarrhea per her request. family at bedside and updated.
--- NOTE | 2017-05-04 20:05 | NUR ---
A: Upon assessment pt alert & oriented x 4. Lungs clear. Abdomen soft, nontender. BKA, transfers to wheelchair independently. Receives intermittent ABX. Will continue. Will continue to monitor.
[2017-05-04] MEDS: ASPIRIN 81 MG ECTAB PO SCH (21:27)
[2017-05-04] MEDS: LORAZEPAM 0.5 MG TAB PO PRN (23:09)
[2017-05-05] VITALS (9 sets, daily range): BP systolic 125–173; BP diastolic 56–72; PULSE 69–87; TEMP 36.6–36.8; O2SAT 92–94
--- NOTE | 2017-05-05 00:05 | NUR ---
A: Pt resting in bed with eyes closed. No change in pt condition. Denies further needs. Will continue to monitor.
--- NOTE | 2017-05-05 04:00 | NUR ---
A: Pt resting in bed with eyes closed. No change in pt condition. Denies further needs. Will continue to monitor.
[2017-05-05] MEDS: ALBUT/IPRATROP 3MG/0.5MG NEB 3 ML VIAL INH SCH ×4 (07:07→19:31)
[2017-05-05 08:11] LABS: HEMATOCRIT 31.8 % (37-47); HEMOGLOBIN 10.5 g/dL (12.0-16.0); MEAN CELL VOLUME 90.3 fL (80-100); MEAN CORPUSCULAR HEMOGLOBIN 29.8 pg (25-34); MEAN PLATELET VOLUME 9.7 fL (7.4-10.4); PLATELET COUNT 311 K/uL (130-400); RED CELL DISTRIBUTION WIDTH CV 14.1 % (11.5-14.5); RED CELL DISTRIBUTION WIDTH SD 46.2 fL (36.4-46.3); WHITE BLOOD COUNT 13.91 K/uL (4.8-10.8)
--- NOTE | 2017-05-05 08:20 | NUR ---
a: pt alert and oriented. pt denies pain. saline lock intact. monitor on, SR. pt independently transfers from bed to w/c. tolerating diet. voiding without difficulty, diarrhea still continues per pt report. discharge uncertain at this time. call dumont in reach.
[2017-05-05] MEDS: CLONIDINE HCL 0.1 MG TAB PO SCH ×2 (08:31→21:46)
[2017-05-05] MEDS: SACCHAROMYCES BOUL (FLORASTOR) 250 MG CAP PO SCH (08:32)
[2017-05-05] MEDS: METOPROLOL TARTRATE 50 MG TAB PO SCH ×2 (08:32→21:46)
[2017-05-05 08:35] LABS: CALCIUM 8.2 mg/dl (8.5-10.1); CREATININE 0.98 mg/dl (0.60-1.20); POTASSIUM 3.5 mmol/L (3.5-5.1)
[2017-05-05] MEDS: HEPARIN SOD 5000 UNIT/0.5 ML CARP SQ SCH ×2 (08:36→21:48)
[2017-05-05] MEDS: LOPERAMIDE HCL 2 MG CAP PO PRN ×2 (08:37→11:26)
[2017-05-05 09:05] LABS: BASO % 0.6 %; BASO ABS # 0.08 K/uL (0-0.2); IG# 0.37 K/uL (0.00-0.02); LYMPH % 14.8 %; LYMPH ABS # 2.06 K/uL (1.2-3.4); MONO % 5.2 %; MONO ABS # 0.73 K/uL (0.11-0.59); NEUT % 76.7 %; NEUT ABS # 10.67 K/uL (1.4-6.5)
[2017-05-05] MEDS: BOOST VANILLA OR BOOST GLUCOSE CONTROL CHOCOLATE PO SCH ×2 (10:00→19:00)
[2017-05-05] MEDS: CEFEPIME IV 2,000 MG in SYRINGE 7.5 ML IV SCH (11:23)
--- NOTE | 2017-05-05 13:00 | NUR ---
a: pt alert and oriented. pt denies pain. saline lock intact. monitor on, SR. pt independently transfers from bed to w/c. tolerating diet. voiding without difficulty, diarrhea still continues per pt report. stool sample sent for Cdiff. discharge uncertain at this time. call dumont in reach.
[2017-05-05] MEDS ORDERED: NURSING VERBAL MED ORDER ONE (15:00)
[2017-05-05] MEDS ORDERED: VANCOMYCIN HCL 125 MG/2.5ML SOLN PO ONE (15:30)
[2017-05-05] MEDS ORDERED: RASPBERRY SYRUP 5 ML UDP PO ONE (15:30)
--- NOTE | 2017-05-05 15:43 | NUR ---
KRISS ANDREW - CONTACT INFO: [phone], PLEASE CALL WITH UPDATES.
--- NOTE | 2017-05-05 15:49 | Hospitalist Progress Note ---
Hospitalist Progress Note Date of Service May 05, 2017. Subjective Pt evaluation today including: conversation w/ patient, conversation w/ building energy consultant (Pulm) Pt continued with diarrhea today but less although received 2 doses of loperamide. However, her C. diff stool ag came back positive later in the day and loperamide was stopped. She denies abd pain. Cough is improved significantly. Afebrile. WBC count remains elevated but stable at 13 All Other Systems: Reviewed and Negative Objective Vital Signs Tele reviewed and in NSR, no atrial tach or SVT Date Time Temp Pulse Resp B/P (MAP) Pulse Ox O2 Delivery O2 Flow Rate FiO2 05/05/17 15:05 76 16 92 Room Air 05/05/17 14:41 36.8 71 18 125/66 (85) 94 05/05/17 12:02 Room Air 05/05/17 11:13 74 16 93 Room Air 05/05/17 11:04 36.7 69 18 145/70 (95) 94 05/05/17 08:10 Room Air 05/05/17 07:46 36.7 87 18 173/72 (105) 93 05/05/17 07:07 81 16 94 Room Air 05/05/17 05:21 36.7 77 20 148/61 (90) 93 Room Air 05/05/17 04:01 Room Air 05/05/17 00:01 Room Air 05/04/17 22:55 36.4 80 22 152/61 (91) 93 Room Air 05/04/17 20:05 Room Air 05/04/17 19:48 36.6 93 19 180/77 (111) 95 Room Air 05/04/17 19:37 99 16 95 Room Air 05/04/17 16:10 Room Air 05/04/17 15:45 71 16 93 Room Air Physical Exam General Appearance: no apparent distress, + thin Eyes: normal inspection, sclerae normal ENT: hearing grossly normal Neck: trachea midline Respiratory/Chest: no respiratory distress, no accessory muscle use, + crackles (in bases and right middle lung field, otherwise clear) Cardiovascular: regular rate, rhythm, no edema, no murmur Abdomen: normal bowel sounds, non tender, soft, no organomegaly Extremities: no calf tenderness, + pertinent finding (Right AKA) Neurologic/Psychiatric: alert, normal mood/affect, oriented x 3 Skin: normal color, warm/dry, no rash Laboratory Results Last 24 Hours Test 05/05/17 07:57 White Blood Count 13.91 K/uL Red Blood Count 3.52 M/uL Hemoglobin 10.5 g/dL Hematocrit 31.8 % Mean Corpuscular Volume 90.3 fL Mean Corpuscular Hemoglobin 29.8 pg Mean Corpuscular Hemoglobin Concent 33.0 g/dl Platelet Count 311 K/uL Mean Platelet Volume 9.7 fL Neutrophils (%) (Auto) 76.7 % Lymphocytes (%) (Auto) 14.8 % Monocytes (%) (Auto) 5.2 % Eosinophils (%) (Auto) 0.0 % Basophils (%) (Auto) 0.6 % Neutrophils # (Auto) 10.67 K/uL Lymphocytes # (Auto) 2.06 K/uL Monocytes # (Auto) 0.73 K/uL Eosinophils # (Auto) 0.00 K/uL Basophils # (Auto) 0.08 K/uL RDW Standard Deviation 46.2 fL RDW Coefficient of Variation 14.1 % Immature Granulocyte % (Auto) 2.7 % Immature Granulocyte # (Auto) 0.37 K/uL Red Blood Cell Morphology Unremarkable Sodium Level 141 mmol/L Potassium Level 3.5 mmol/L Chloride Level 105 mmol/L Carbon Dioxide Level 29 mmol/L Anion Gap 8.0 mmol/L Blood Urea Nitrogen 13 mg/dl Creatinine 0.98 mg/dl Est Creatinine Clear Calc Drug Dose 34.9 ml/min Estimated GFR () 60.1 Estimated GFR (Non- 51.9 BUN/Creatinine Ratio 13.1 Random Glucose 87 mg/dl Calcium Level 8.2 mg/dl Magnesium Level 2.0 mg/dl Assessment and Plan Ms. Hager is an 86 y/o female with PMHx of PAD S/P Multiple Angioplasties and R AKA, Chronic Diastolic CHF, lone A-fib, and HTN who presents to the ED complaining of flu-like symptoms 3 days. Found to have multifocal PNA and sepsis, as well as acute hypoxemic respiratory failure. Sepsis/Community Acquired Pneumonia/Acute hypoxemic respiratory failure/Pleural effusions bilat: Chest CT confirms chronic RML collapse worse than previous, multifocal PNA on right lung and some in lingula. Possible loculated effusion vs chronic changes. Seen by Pulm who does not think has loculated effusion, no need for thoracentesis. Has a h/o previous empyema on right with need for PleurX catheter drainage in 2014. Not requiring O2 Had worsening of leukocytosis to 13k after being off broad spectrum abx, and CXR worsened with bilat pleural effusions, probably volume overload, but abx broadened again. Leukocytosis persists but stable today at 13k and is likely due to C. diff colitis which has developed likely as a result of antibiotic therapy. Repeat CXR 05/04 with slightly improved bilat pleural effusions as per my personal review, persistent bibasilar infiltrates, RML chronic changes -discontinue Cefepime, Vanco as has been total 7 day course, finished 5 days of azithro, and now with C. diff colitis -dcd Hycodan as syrup irritated her and worsened cough -continue Tessalon pearls and Robitussin DM for cough - Tylenol PRN fever/pain - continue Duo nebs, flutter valve -BCxs negative -Appreciate Pulm consult -received 2 doses lasix 20mg IV for volume overload-improved, none further needed -will need f/u CXR in 4-6 weeks to ensure resolution although will likely continue to have chronic RML changes C. diff diarrhea-diarrhea ongoing, C. diff negative on 05/02 and then repeat on 05/05 positive (repeated for persistent diarrhea. Likely secondary to antibiotics. Antibiotics completed today. WBC count elevated likely secondary to C. diff -now that repeat C. diff is POSITIVE, will dc loperamide -continue probiotics -started Vanco 125mg po qid x 10 day total course Peripheral Artery Disease S/P Angioplasties and S/P R AKA-stable, no acute issues - continue ASA 81 mg daily Acute on Chronic Diastolic CHF/HTN-resolved, had evidence of fluid overload on exam with new bilat pleural effusions and was fluid positive on I/Os, weight up 4 kg, BPs up a bit. Weight now down 3kg since with diuresis BPs now improved with increasing metoprolol - continue Daily weights, I/Os -continue Clonidine 0.2 mg BID and increased dose of metoprolol 75 mg BID -no further lasix needed Non-sustained VT- 5 beat run on 05/01, asymptomatic. Has normal LVEF on ECHO 2014. Had brief SVT run 7 beats 05/03, brief atrial tach 05/04. Asymptomatic. No further events on tele, increased beta tree. has normal EFon ECHO 2014 -continue metoprolol at increased dose -ok to dc tele Lone Atrial Fibrillation: -review of previous admission in 2014 suggests she had an episode of what appears to be lone atrial fibrillation related to her respiratory illness at the time - Patient does not recall ever being diagnosed with this and is not on anticoagulation --no A-fib here at all -continue metoprolol Normocytic anemia- hgb dropped since admission from 12--> 9.5--> back up to 10.5 , likely dilutional, review of trend over the years shows frequent anemia, previously low Folate. No bleeding at this time. Folate and B12 now normal, Fe studies suggest anemia of chronic dz -follow CBC DVT Prophylaxis: Heparin 5000 units Q12H Code Status: FULL RESUSCITATION [facility]position: - [facility] - PT recommended return home when medically stable- hopefully tomorrow if diarrhea improving
--- NOTE | 2017-05-05 16:30 | NUR ---
a: pt alert and oriented. pt denies pain. saline lock intact. monitor on, SR. pt independently transfers from bed to w/c. tolerating diet. voiding without difficulty, diarrhea still continues per pt report. cdiff +, pt on isolation precautions, pt and family educated. discharge uncertain at this time. call dumont in reach.
[2017-05-05] MEDS: RASPBERRY SYRUP 5 ML UDP PO SCH ×2 (17:43→21:44)
[2017-05-05] MEDS: VANCOMYCIN HCL 125 MG/2.5ML SOLN PO SCH ×2 (17:43→21:44)
[2017-05-05] MEDS: ASPIRIN 81 MG ECTAB PO SCH (21:46)
[2017-05-05] MEDS: LORAZEPAM 0.5 MG TAB PO PRN (21:49)
[2017-05-06 07:41] VITALS: BP 183/69; PULSE 84; TEMP 36.7; O2SAT 96
[2017-05-06 07:45] VITALS: PULSE 79; O2SAT 92
[2017-05-06] MEDS: ALBUT/IPRATROP 3MG/0.5MG NEB 3 ML VIAL INH SCH ×2 (07:45→11:15)
[2017-05-06 07:58] LABS: BASO % 0.4 %; BASO ABS # 0.06 K/uL (0-0.2); HEMATOCRIT 33.4 % (37-47); HEMOGLOBIN 10.8 g/dL (12.0-16.0); IG# 0.45 K/uL (0.00-0.02); LYMPH % 18.2 %; LYMPH ABS # 2.45 K/uL (1.2-3.4); MEAN CELL VOLUME 90.8 fL (80-100); MEAN CORPUSCULAR HEMOGLOBIN 29.3 pg (25-34); MEAN CORPUSCULAR HGB CONC 32.3 g/dl (32-36); MONO % 7.2 %; MONO ABS # 0.97 K/uL (0.11-0.59); NEUT % 70.9 %; NEUT ABS # 9.53 K/uL (1.4-6.5); PLATELET COUNT 364 K/uL (130-400); RED CELL DISTRIBUTION WIDTH SD 46.4 fL (36.4-46.3); WHITE BLOOD COUNT 13.46 K/uL (4.8-10.8)
[2017-05-06 08:00] VITALS: O2SAT 92
--- NOTE | 2017-05-06 08:00 | NUR ---
A: pt alert and oriented. she is up in room independent with transfers to and mobility. pt independent w/ ADLs. room air. respirations even and unlabored. belly s,nt, nd. bruising to abdomen from heparin. pt has R AKA w/ stump intact. LLE discolored and scabbed. saline lock intact and flushing w/o issue. she denies pain. denies chest pain, discomfort. pt rings for assist as needed. will continue care.
[2017-05-06] MEDS: VANCOMYCIN HCL 125 MG/2.5ML SOLN PO SCH ×2 (08:21→13:09)
[2017-05-06] MEDS: RASPBERRY SYRUP 5 ML UDP PO SCH ×2 (08:21→13:09)
[2017-05-06] MEDS: GUAIFENESIN/DEXTROM SYRUP 100MG/10MG 5ML UDC PO PRN (08:22)
[2017-05-06] MEDS: SACCHAROMYCES BOUL (FLORASTOR) 250 MG CAP PO SCH (08:23)
[2017-05-06] MEDS: CLONIDINE HCL 0.1 MG TAB PO SCH (08:23)
[2017-05-06] MEDS: METOPROLOL TARTRATE 50 MG TAB PO SCH (08:24)
[2017-05-06] MEDS: HEPARIN SOD 5000 UNIT/0.5 ML CARP SQ SCH (08:26)
[2017-05-06 08:28] LABS: CALCIUM 8.5 mg/dl (8.5-10.1); CREATININE 0.86 mg/dl (0.60-1.20); POTASSIUM 3.6 mmol/L (3.5-5.1)
[2017-05-06] MEDS: BOOST VANILLA OR BOOST GLUCOSE CONTROL CHOCOLATE PO SCH (10:00)
[2017-05-06 11:16] VITALS: PULSE 64; O2SAT 93
[2017-05-06] MEDS ORDERED: BENZ100C7 PO (12:30)
[2017-05-06] MEDS ORDERED: METR500T PO (12:30)
[2017-05-06] MEDS ORDERED: SACC250C3 PO (12:30)
[2017-05-06] MEDS ORDERED: METO50TA17 PO (12:30)
[2017-05-06] MEDS ORDERED: RBTDMUDC5 PO (12:30)
[2017-05-06] MEDS ORDERED: VNTHFA/IN INH (12:30)
--- NOTE | 2017-05-06 12:35 | Discharge Instructions ---
Discharge Instructions Date of Service May 06, 2017. Admission Reason for Admission: Pneumonia Discharge Discharge Diagnosis / Problem: Pneumonia, Clostridium difficile diarrhea Discharge Goals Goal(s): Improve disease control, Diagnostic testing, Therapeutic intervention Activity Recommendations Activity Limitations: as noted below Exercise/Sports Limitations: gradually increase as tolerated Shower/Bathe: no limitations . Instructions / Follow-Up Instructions / Follow-Up You were admitted with pneumonia and treated with antibiotics. You then developed diarrhea associated with an infection from a bacteria called Clostridium difficile. You will need to finish out 9 more days of an antibiotic for this called metronidazole. If you have any worsening diarrhea, nausea/ vomiting, abdominal pain, or blood in your stool, you should call Dr. James right away. Please contact [facility] to have a visiting nurse see you tomorrow. You should also have some blood work completed in 1-2 days to recheck your white blood cell count to make sure it is coming back to normal. Current Hospital Diet Patient's current hospital diet: AHA Diet (Heart Healthy) Discharge Diet Recommended Diet: AHA Diet (Heart Healthy) Procedures Procedures Performed: CT Chest Chest xrays Pending Studies Studies pending at discharge: no Laboratory Results Last 24 Hours Test 05/06/17 07:37 White Blood Count 13.46 K/uL Red Blood Count 3.68 M/uL Hemoglobin 10.8 g/dL Hematocrit 33.4 % Mean Corpuscular Volume 90.8 fL Mean Corpuscular Hemoglobin 29.3 pg Mean Corpuscular Hemoglobin Concent 32.3 g/dl Platelet Count 364 K/uL Mean Platelet Volume 10.0 fL Neutrophils (%) (Auto) 70.9 % Lymphocytes (%) (Auto) 18.2 % Monocytes (%) (Auto) 7.2 % Eosinophils (%) (Auto) 0.0 % Basophils (%) (Auto) 0.4 % Neutrophils # (Auto) 9.53 K/uL Lymphocytes # (Auto) 2.45 K/uL Monocytes # (Auto) 0.97 K/uL Eosinophils # (Auto) 0.00 K/uL Basophils # (Auto) 0.06 K/uL RDW Standard Deviation 46.4 fL RDW Coefficient of Variation 14.0 % Immature Granulocyte % (Auto) 3.3 % Immature Granulocyte # (Auto) 0.45 K/uL Sodium Level 141 mmol/L Potassium Level 3.6 mmol/L Chloride Level 105 mmol/L Carbon Dioxide Level 29 mmol/L Anion Gap 7.0 mmol/L Blood Urea Nitrogen 13 mg/dl Creatinine 0.86 mg/dl Est Creatinine Clear Calc Drug Dose 39.8 ml/min Estimated GFR () 70.4 Estimated GFR (Non- 60.7 BUN/Creatinine Ratio 15.1 Random Glucose 87 mg/dl Calcium Level 8.5 mg/dl Magnesium Level 2.3 mg/dl Medical Emergencies . Who to Call and When: Medical Emergencies: If at any time you feel your situation is an emergency, please call 911 immediately. . Non-Emergent Contact Non-Emergency issues call your: Primary Care Provider Call Non-Emergent contact if: temperature is above 100.5, your pain is worsening, your pain is unusual for you, your pain is concerning you, you have any medication questions . . "Provider Documentation" section prepared by Tova Higgins. . VTE Core Measure Inpt VTE Proph given/why not?: Unfractionated heparin SQ
[2017-05-06 12:45] VITALS: BP 183/69; PULSE 64; TEMP 36.7; O2SAT 93
[2017-05-06] MEDS ORDERED: ONDA4TAB10 SL (13:13)
--- NOTE | 2017-05-06 13:17 | NUR ---
pt discharged at this time as per MD order. pt in stable condition. she denies pain . pt sons present and acknowledge understanding of d/c instructions and scripts. pt family also acknowledge understanding of infection prevention and contact precautions. pt left at this time via her own wheelchair w/ belongings and her family members.
[2017-05-06] MEDS ORDERED: VANCOMYCIN TROUGH ONE (15:30)
--- NOTE | 2017-05-06 16:50 | Discharge Summary ---
Discharge Summary Date of Service May 06, 2017. Discharge Summary Admission Date: Apr 29, 2017 at 17:11 Discharge Date: May 06, 2017 Discharge Disposition: Home Principal Diagnosis: Pneumonia, Sepsis, C. diff colitis Problems/Secondary Diagnoses: Acute hypoxemic respiratory failure Bilateral pleural effusions Chronic RML collapse PAD S/P Multiple Angioplasties and R AKA H/o Lone A-fib HTN H/o previous empyema on right with need for PleurX catheter drainage Leukocytosis Acute on Chronic Diastolic CHF Non-sustained VT Paroxysmal SVT/Atrial tachycardia H/o Lone Atrial Fibrillation: Normocytic anemia of chronic disease Immunizations: Have You Had Influenza Vaccine: Yes Influenza Vaccine Date: Feb 27, 2013 History of Tetanus Vaccine?: Yes Tetanus Immunization Date: May 30, 2011 History of Pneumococcal: Yes History of Hepatitis B Vaccine: Unknown Procedures: CT Chest CXRs Consultations: Pulmonology Medication Reconciliation New Medications: Albuterol Hfa (Ventolin Hfa) 200 Puffs/93814 Mcg Aers 2 PUFFS INH Q6H PRN for Cough, #1 INHALER Pharmacy may substitute with Proair/Proventil if more cost afforbdable Metronidazole (Flagyl) 500 Mg Tab 500 MG PO TID, #28 TAB Benzonatate (Benzonatate) 100 Mg Cap 100 MG PO Q8H PRN for Cough for 7 Days, #21 CAP Guaifenesin/Dextromethorphan (Guaifenesin-Dm 100-10 mg/5Ml) 5 Ml/Cup Syrp 5 ML PO Q4H PRN for Cough for 7 Days OTC Saccharomyces Boulardii (Florastor) 250 Mg Cap 250 MG PO DAILY for 30 Days, #30 CAP OTC Changed Medications: Metoprolol Tartrate (Metoprolol Tartrate) 50 Mg Tab 75 MG PO BID for 30 Days, #90 TAB (Changed from: 50 MG; 60) Continued Medications: Aspirin (Aspirin) 81 Mg Tab 81 MG PO HS Clonidine Hcl (Catapres) 0.2 Mg Tab 1 TAB PO BID for 30 Days, #60 TAB 5 Refills Cyclosporine (Ophth) (Restasis) 0.05 % Emu 1 DROP OPB BID Furosemide (Lasix) 20 Mg Tab 20 MG PO DAILY, TAB Gabapentin (Neurontin) 100 Mg Cap 200 MG PO UD, CAP 2 CAPS INTH EMORNING,1-2 CAPSULES AT NOON, AND 3 CAPSULES AT BEDTIME Ipratropium Glasco (Nasal) (Ipratropium Glasco) 0.06 % Spr 2 SPRAYS MATT TID PRN for Nasal Congestion Losartan Potassium (Cozaar) 100 Mg Tab 100 MG PO DAILY Referrals At Discharge Follow up Referrals: Physician Referral - Within 1 Week with Ahsan James M.D. Discharge Exam Feeling better, minimal cough. Diarrhea has slowed down since starting po Vanco. Still with low appetite but is eating. No N/V, no abd pain, no CP, not SOB. WBC count remains stable to slightly decreased at 13.4. Remains afebrile. Ready for discharge. PO Vanco was not cost affordable at $286 for the remaining 9 days, so we agreed to switch her to po Flagyl on discharge. Physical Exam Vitals reviewed General Appearance: no apparent distress, + thin Eyes: normal inspection, sclerae normal ENT: hearing grossly normal Neck: trachea midline Respiratory/Chest: no respiratory distress, no accessory muscle use, + crackles (in bases and right middle lung field, otherwise clear) Cardiovascular: regular rate, rhythm, no edema, no murmur Abdomen: normal bowel sounds, non tender, soft, no organomegaly Extremities: no calf tenderness, + pertinent finding (Right AKA), trace pitting edema left leg Neurologic/Psychiatric: alert, normal mood/affect, oriented x 3 Skin: normal color, warm/dry, no rash Review of Systems: Constitutional: No fever, No chills Eyes: No problem reported ENT: No problem reported Respiratory: + cough, No shortness of breath Cardiovascular: No chest pain Abdomen: + diarrhea, No pain, No nausea, No vomiting, No constipation, No GI bleeding Musculoskeletal: No problem reported Genitourinary - Female: No problem reported Neurologic: No problem reported Psychiatric: No problem reported Endocrine: No problem reported Hematologic / Lymphatic: No problem reported Integumentary: No problem reported Hospital Course Ms. Hager is an 86 y/o female with PMHx of PAD S/P Multiple Angioplasties and R AKA, Chronic Diastolic CHF, lone A-fib, and HTN who presents to the ED complaining of flu-like symptoms 3 days. Found to have multifocal PNA and sepsis, as well as acute hypoxemic respiratory failure. Sepsis/Community Acquired Pneumonia/Acute hypoxemic respiratory failure/Pleural effusions bilat: Chest CT confirms chronic RML collapse worse than previous, multifocal PNA on right lung and some in lingula. Possible loculated effusion vs chronic changes. Seen by Pulm who does not think has loculated effusion, no need for thoracentesis. Has a h/o previous empyema on right with need for PleurX catheter drainage in 2015. Not requiring O2 at time of discharge Had worsening of leukocytosis to 13k after being off broad spectrum abx, and CXR worsened with bilat pleural effusions, probably volume overload, but abx broadened again. Leukocytosis persisted but stable at 13k and is likely due to C. diff colitis which has developed likely as a result of antibiotic therapy. Repeat CXR 05/04 with slightly improved bilat pleural effusions, persistent bibasilar infiltrates, RML chronic changes -discontinued Cefepime, Vanco as has been total 7 day course, finished 5 days of azithro, and now with C. diff colitis -continue Tessalon pearls and Robitussin DM for cough - continue albuterol prn, flutter valve -BCxs negative -Appreciate Pulm consult -received 2 doses lasix 20mg IV for volume overload-improved -will need f/u CXR in 4-6 weeks to ensure resolution although will likely continue to have chronic RML changes C. diff diarrhea-diarrhea ongoing, C. diff negative on 05/02 and then repeat on 05/05 positive (repeated for persistent diarrhea. Likely secondary to antibiotics. Antibiotics completed for PNA. WBC count elevated likely secondary to C. diff, WBC count remains elevated but slightly improved at 13.4 on day of discharge -continue probiotics -started Vanco 125mg po qid here, but not cost affordable at outpt pharmacy--> switch to po Flagyl 500mg po tid x 9 more days -Zofran as needed for nausea Peripheral Artery Disease S/P Angioplasties and S/P R AKA-stable, no acute issues - continue ASA 81 mg daily Acute on Chronic Diastolic CHF/HTN-resolved, had evidence of fluid overload on exam with new bilat pleural effusions and was fluid positive on I/Os, weight up 4 kg, BPs up a bit. Weight now down 3kg since with diuresis with IV lasix BPs now improved with increasing metoprolol -continue Clonidine 0.2 mg BID and increased dose of metoprolol 75 mg BID -restart po lasix on discharge -restart home losartan on discharge (was held on admission for sepsis and mild renal insufficiency) Non-sustained VT- 5 beat run on 05/01, asymptomatic. Has normal LVEF on ECHO 2014. Had brief SVT run 7 beats 05/03, brief atrial tach 05/04. Asymptomatic. No further events on tele after increased beta tree. has normal EF on ECHO 2014 -continue metoprolol at increased dose H/O Lone Atrial Fibrillation: -review of previous admission in 2014 suggests she had an episode of what appears to be lone atrial fibrillation related to her respiratory illness at the time - Patient does not recall ever being diagnosed with this and is not on anticoagulation --no A-fib here at all -continue metoprolol Normocytic anemia- hgb dropped since admission from 12--> 9.5--> back up to 10.5 , likely dilutional, review of trend over the years shows frequent anemia, previously low Folate. No bleeding at this time. Folate and B12 now normal, Fe studies suggest anemia of chronic dz -follow CBC periodically as outpt Evaluated by PT/OT and ok for discharge to home with pt to contact staff command and control officer at the [facility] for home visit the day after discharge. Total Time Spent: Greater than 30 minutes This includes examination of the patient, discharge planning, medication reconciliation, and communication with other providers. Discharge Instructions Please refer to the electronic Patient Visit Report (Discharge Instructions) for additional information. Follow-Up PCP Dr. James within 1 week Check CBC, BMP in 1-2 days Additional Copies To Ahsan James M.D.
[2017-08-15] MEDS ORDERED: FURO-85 PO (14:45)
[2017-08-15] MEDS ORDERED: IPRA0.06 (14:45)
[2017-08-15] MEDS ORDERED: ASPI81TA28 PO (14:45)
[2017-08-22] MEDS ORDERED: TRAM-10 PO (06:02)
[2017-11-19] MEDS ORDERED: ANAS1TAB59 PO (13:35)
== END 2017-05-06 13:22 | disposition home or self-care (01) | DRG 871 ==
LOC: EDBD 12:52 → C.EDB 12:53 → C.MED 17:11 → ENRESERV 17:43
PROVIDERS: ADMIT Internal Medicine; ATTEND Family Medicine
DX: A41.9 Sepsis, unspecified organism (principal); J18.9 Pneumonia, unspecified organism; J96.01 Acute respiratory failure with hypoxia; I50.33 Acute on chronic diastolic (congestive) heart failure; J98.19 Other pulmonary collapse; A04.72 Enterocolitis due to Clostridium difficile, not specified as recurrent; I47.2 Ventricular tachycardia; I11.0 Hypertensive heart disease with heart failure; I48.91 Unspecified atrial fibrillation; I73.9 Peripheral vascular disease, unspecified; D64.9 Anemia, unspecified; Z51.81 Encounter for therapeutic drug level monitoring; Z79.899 Other long term (current) drug therapy; Z79.82 Long term (current) use of aspirin; Z87.01 Personal history of pneumonia (recurrent); Z89.611 Acquired absence of right leg above knee; Z87.891 Personal history of nicotine dependence; Z82.49 Family history of ischemic heart disease and other diseases of the circulatory system

== ENCOUNTER → 2017-05-09 | Outpatient (CLI) | payer OTHER, MEDICARE ==
[~2017-05-09] MED LIST changes: +ANAS1TAB59 PO; +ASPI81TA28 PO; +BENZ100C7 PO; +CLON0.2T PO; -CTP2 PO; -CYCL0.05 OP; +CYCL0.052 OPB; -CZR50 PO; -GABA-113 PO; +IPRA0.06; +LOSA100T65 PO; +METR500T PO; +ONDA4TAB10 SL; +RBTDMUDC5 PO; +SACC250C3 PO; +TRAM-10 PO; +VNTHFA/IN INH; -compounded cream
== END | disposition home or self-care (01) ==
LOC: C.LABSPEC 15:44
PROVIDERS: ATTEND Nurse Practitioner
DX: R35.0 Frequency of micturition (principal)

== ENCOUNTER → 2017-05-16 | Outpatient (CLI) | payer OTHER, MEDICARE ==
[~2017-05-16] MED LIST changes: -ANAS1TAB59 PO; -ASPI81TA28 PO; -IPRA0.06; -TRAM-10 PO
[2017-05-16 08:44] LABS: BASO % 0.6 %; BASO ABS # 0.05 K/uL (0-0.2); EOS % 1.9 %; EOS ABS # 0.17 K/uL (0-0.5); HEMATOCRIT 35.1 % (37-47); HEMOGLOBIN 11.4 g/dL (12.0-16.0); IG# 0.02 K/uL (0.00-0.02); LYMPH ABS # 1.75 K/uL (1.2-3.4); MEAN CELL VOLUME 92.4 fL (80-100); MEAN CORPUSCULAR HGB CONC 32.5 g/dl (32-36); MEAN PLATELET VOLUME 10.7 fL (7.4-10.4); MONO % 6.6 %; MONO ABS # 0.58 K/uL (0.11-0.59); NEUT % 70.7 %; NEUT ABS # 6.16 K/uL (1.4-6.5); PLATELET COUNT 378 K/uL (130-400); RED CELL DISTRIBUTION WIDTH SD 50.2 fL (36.4-46.3); WHITE BLOOD COUNT 8.73 K/uL (4.8-10.8)
[2017-05-16 08:52] LABS: BLOOD UREA NITROGEN 20 mg/dl (7-18); CALCIUM 8.6 mg/dl (8.5-10.1); CARBON DIOXIDE 28 mmol/L (21-32); CREATININE 2.09 mg/dl (0.60-1.20); GLUCOSE 115 mg/dl (70-99); POTASSIUM 3.7 mmol/L (3.5-5.1); SODIUM 137 mmol/L (136-145)
== END | disposition home or self-care (01) ==
LOC: C.LABVPSUW 08:32
PROVIDERS: ATTEND Internal Medicine Critical Care Medicine
DX: A04.72 Enterocolitis due to Clostridium difficile, not specified as recurrent (principal)

== ENCOUNTER → 2017-05-22 | Outpatient (CLI) | payer OTHER, MEDICARE ==
[~2017-05-22] MED LIST changes: -METR500T PO
== END | disposition home or self-care (01) ==
LOC: C.LABSPEC 10:07
PROVIDERS: ATTEND Internal Medicine Critical Care Medicine
DX: R19.7 Diarrhea, unspecified (principal)

== ENCOUNTER → 2017-07-01 | Outpatient (CLI) | payer OTHER, MEDICARE ==
--- NOTE | 2017-07-02 07:56 | MAMMOGRAPHY REPORT ---
BILATERAL DIGITAL SCREENING MAMMOGRAM TOMOSYNTHESIS WITH CAD: 07/01/2017 CLINICAL HISTORY: Routine screening. TECHNIQUE: Breast tomosynthesis in addition to standard 2D mammography was performed. Current study was also evaluated with a Computer Aided Detection (CAD) system. COMPARISON: Comparison is made to exams dated: 06/28/2016 mammogram, 06/24/2015 mammogram, 11/26/2013 m ammogram, 11/13/2012 mammogram, 11/12/2011 mammogram, and 11/09/2010 mammogram - [facility] ter. BREAST COMPOSITION: The tissue of both breasts is heterogeneously dense, which may obscure small mas ses. FINDINGS: There is a possible area of architectural distortion and 9 mm nodular asymmetry in the lat eral, middle one third of the right breast, best seen on CC tomosynthesis slice 29/54, for which alirio tional spot compression tomosynthesis views and possible ultrasound are recommended. There are moderate vascular calcifications in the breasts. No other suspicious mass, asymmetry, arch itectural distortion or cluster of microcalcifications is seen. IMPRESSION: ACR BI-RADS CATEGORY 0: INCOMPLETE EVALUATION: NEED ADDITIONAL IMAGING EVALUATION The possible area of architectural distortion and associated asymmetry in the lateral right breast ne eds additional evaluation. The patient will be called to schedule an appointment. Approximately 10% of breast cancers are not detected with mammography. A negative mammographic report should not delay biopsy if a clinically suggestive mass is present. Daisy Yan M.D. ay/:07/01/2017 16:26:03 Attending Technologist: Ruth Guadarrama RT(R)(M), [facility] Lens Molder: Pearl Figueroa RT(R)(M), [facility] letter sent: Addl Imaging 0 BI-RADS Code: ACR BI-RADS Category 0: Incomplete Evaluation: Need Additional Imaging Evaluation
== END | disposition home or self-care (01) ==
LOC: C.MAMM 13:32
PROVIDERS: ATTEND Internal Medicine Critical Care Medicine
DX: Z12.31 Encounter for screening mammogram for malignant neoplasm of breast (principal)

== ENCOUNTER → 2017-07-10 | Outpatient (CLI) | payer OTHER, MEDICARE ==
--- NOTE | 2017-07-11 08:04 | MAMMOGRAPHY REPORT ---
UNILATERAL RIGHT DIGITAL DIAGNOSTIC MAMMOGRAM TOMOSYNTHESIS AND TARGETED RIGHT ULTRASOUND: 07/10/2017 CLINICAL HISTORY: 86-year-old woman called back from screening mammography for an asymmetry with poss ible associated architectural distortion in the upper outer posterior right breast. TECHNIQUE: Spot compression right CC and MLO tomosynthesis images; full-field right CC and MLO tomosy nthesis images were obtained after placement of skin markers. COMPARISON: Comparison is made to exams dated: 07/01/2017 mammogram, 06/28/2016 mammogram, 06/24/2015 m ammogram, 11/13/2012 mammogram, and 11/12/2011 mammogram - [facility]. BREAST COMPOSITION: The tissue of the right breast is heterogeneously dense, which may obscure small masses. FINDINGS: Spot compression right CC and MLO tomosynthesis images were obtained first. There is a per sistent irregular asymmetry measuring 9 mm in the lateral, middle one third of the right breast on th e spot compression CC view. This asymmetry demonstrates associated architectural distortion and furt her characterization with ultrasound was performed. Based on the spot compression MLO tomosynthesis images it is likely in the superior breast (slice 28/56), although this finding is very subtle in the MLO projection. Targeted ultrasound was performed in the right breast with particular attention to the upper outer qu adrant but also including the lower outer quadrant. In the 11:00 right breast, 6 cm from the nipple, there is a subtle ill-defined hypoechoic solid-appearing mass with associated architectural distorti on, measuring 5.4 x 5.2 x 5.2 mm. No significant increased vascularity. Another ill-defined area of shadowing is identified in the 8:00 right breast, 5 cm from the nipple that is difficult to measure given the ill-defined nature but measures approximately 9.8 x 8.1 x 8.5 mm. Given the subtle nature of both ultrasound findings and similarity to adjacent breast tissue, skin markers were placed overly ing each abnormality and repeat full field right CC and MLO views were obtained. A circular mole mar ker was placed over the abnormality in the 11:00 axis and a BB marker was placed over the abnormality in the 8:00 axis. Based on the full-field mammography, the circular mole marker aligns with the mammographic asymmetry and distortion in question. The BB-marker does not correspond to any obvious mammographic abnormalit y. Therefore, plan to proceed with ultrasound-guided core biopsy in the 11:00 right breast and furth er management regarding the other area of distortion will be made once pathology results are availabl e. IMPRESSION: ACR BI-RADS CATEGORY 4: SUSPICIOUS, TARGETED ULTRASOUND ACR BI-RADS CATEGORY 4: SUSPICIO US 1. Ultrasound-guided core biopsy is recommended for an ill-defined mass with associated architectura l distortion in the 11:00 right breast, 6 cm from the nipple, which correlates with a mammographic as ymmetry and associated distortion. Ultrasound measurements likely underestimate the lesion and mammo graphically it measures 9 mm. 2. An ill-defined area of shadowing was also identified in the 8:00 right breast on ultrasound, with out obvious mammographic abnormality and this finding likely represents normal shadowing breast tissu e. However, further recommendations regarding management will be made once pathology results are margarita ilable from the 11:00 biopsy. These results and recommendations were discussed with the patient at the time of the exam. She tenta tively scheduled the right breast biopsy prior to leaving our department. Approximately 10% of breast cancers are not detected with mammography. A negative mammographic report should not delay biopsy if a clinically suggestive mass is present. Daisy Yan M.D. ay/:07/10/2017 15:12:30 Sample Color Maker: Danni SOUZA(Anabell)(M), [facility] letter sent: Abnormal 4/5 BI-RADS Code: ACR BI-RADS Category 4: Suspicious Ultrasound BI-RADS: ACR BI-RADS Category 4: Suspici ous
== END | disposition home or self-care (01) ==
LOC: C.MAMM 13:21
PROVIDERS: ATTEND Internal Medicine Critical Care Medicine
DX: N64.89 Other specified disorders of breast (principal)

== ENCOUNTER → 2017-07-17 | Outpatient (CLI) | payer OTHER, MEDICARE ==
--- NOTE | 2017-07-17 14:09 | Discharge Instructions ---
Discharge Instructions Procedure Procedure Date: Jul 17, 2017. Reason for visit: Right Mass. Discharge Discharge Date: Jul 17, 2017. Discharge Diagnosis: post right breast ultrasound guided core biopsy Medications Restart Stopped Medication(s): May restart Aspirin today Instructions Activity Recommendations: Additional Limitations (see below) Return to School/Work: no limitations Recommended Home Diet: No Limitations Provider Instructions: ACTIVITY RECOMMENDATIONS: * No lifting, pushing, pulling or exercising the affected side for three days. RETURN TO SCHOOL/WORK: * You may return to work/school after the procedure, but do not perform any strenuous activities for 24 to 48 hours. MEDICATIONS: * Tylenol (two 325 mg) every four to six hours if needed for mild pain (if not allergic to Tylenol). DIET: * Resume previous diet. SPECIAL CARE INSTRUCTIONS: * Keep biopsy site dry for 24 hours. May shower after 24 hours, but do not soak (bathe) incision. * May remove Tegaderm (plastic patch) tomorrow AFTER showering. * Leave the steri-strips on for one week. Allow the steri-strips to fall off by themselves. If not off after one week, you may remove them. You may place a Bandaid crosswise over the strips, if desired. * Apply ice 10 minutes on and 10 minutes off as needed. * Wear a bra at bedtime to sleep more comfortably for 2-3 days. * Your referring physician should have the results after approximately 5 to 7 business days. * Call for unusual bleeding, fever, drainage, etc or if you have any questions call [phone] during normal business hours or after hours call Dr Yan, . FOLLOW UP VISIT: Follow-up with Referring Physician as scheduled. Allergies Coded Allergies: Sulfa Antibiotics (Verified Allergy, Intermediate, RASH, 04/29/17) Codeine (Verified Adverse Reaction, Mild, ABD CRAMPS, 04/29/17) Raul Rodríguez Recommendations: Call your doctor if: * Temperature above 101 degrees * Pain not relieved by pain medicine ordered * There is increased drainage or redness from any incision * You have any unanswered questions or concerns. Your Doctors Instructions noted above were prepared by provider Daisy Yan. Patient Signature Section: Patient Instructions Signature Page Orlin Hager Patient (or Guardian) Signature/Date: I have read and understand the instructions given to me by my caregivers. Caregiver/RN/Doctor Signature/Date: The above-named patient and/or guardian has received patient instructions on this date. + Original Patient Signature Page (only) stays with chart. Please make copy for patient.
--- NOTE | 2017-07-19 08:51 | MAMMOGRAPHY REPORT ---
ULTRASOUND GUIDED BIOPSY RIGHT BREAST: 07/17/2017 CLINICAL HISTORY: 86-year-old woman presents for biopsy of an ill-defined 5.4 mm mass with associated architectural distortion in the 11:00 posterior right breast, Correlating with subtle mammographic distortion and asymmetry. COMPARISON: Comparison is made to exams dated: 07/10/2017 ultrasound, 07/10/2017 mammogram, 06/28/2016 ma mmogram, 06/24/2015 mammogram, 11/26/2013 mammogram, and 11/13/2012 mammogram - [facility]ter. PATIENT CONSENT: The procedure, risks and benefits were discussed with the patient and informed conse nt was obtained both verbally and in writing. Specific risks to this procedure include: bleeding, in fection, puncture of adjacent structure, nontarget biopsy, sampling error, pain, metal allergy and me dication reaction. PROCEDURE DESCRIPTION: A time out was performed and the right breast was agreed as the site of biopsy . The skin was prepped and draped in the usual sterile fashion. The subtle hypoechoic 5.4 mm mass wit h associated architectural distortion in the 11:00 right breast was chosen as the target for biopsy. Subcutaneous and intraparenchymal 1% buffered lidocaine, with and without epinephrine, was administer ed as local anesthesia. A skin incision was made. Through the incision, for samples were taken with a 12 gauge Celero biopsy device. A ribbon shaped metallic marker was placed at the biopsy site. Hemos tasis was achieved after manual compression. The patient tolerated the procedure well and there was n o immediate complication. The samples were sent to the pathology department in an appropriately labe led container. Postprocedural right CC, ML and MLO views were obtained. The biopsy marker clip was not visualized o n the MLO view. No significant postbiopsy hematoma is identified. A new ribbon-shaped clip is seen in 11:00 posterior right breast, aligning with the subtle mammographic distortion in question. IMPRESSION: ULTRASOUND GUIDED BIOPSY Status post ultrasound-guided core biopsy of an asymmetry with associated architectural distortion in the 11:00 right breast, with biopsy marker clip placed at the site. The patient will receive notification of the biopsy results from her referring physician. Daisy Yan M.D. ay/:07/17/2017 14:24:29 Waxer Operator: Denia ANAND)(Dacia), [facility]
--- NOTE | 2017-07-19 08:52 | MAMMOGRAPHY REPORT ---
UNILATERAL RIGHT DIGITAL DIAGNOSTIC MAMMOGRAM TOMOSYNTHESIS: 07/17/2017 CLINICAL HISTORY: Status post ultrasound-guided core biopsy of a subtle mass with associated architec tural distortion in the 11:00 right breast, correlating with mammographic distortion. Please refer to the report from right breast ultrasound-guided core biopsy performed at the same time for full detail. IMPRESSION: POST PROCEDURE IMAGING FOR MARKER PLACEMENT Please refer to the report from right breast ultrasound-guided core biopsy performed at the same time for full detail. Approximately 10% of breast cancers are not detected with mammography. A negative mammographic report should not delay biopsy if a clinically suggestive mass is present. Daisy Yan M.D. ay/:07/17/2017 14:10:58 Butter Production Supervisor: Denia ANAND)(Dacia), [facility] BI-RADS Code: Post Procedure Imaging For Marker Placement
== END | disposition home or self-care (01) ==
LOC: C.MAMM 13:24
PROVIDERS: ATTEND Internal Medicine Critical Care Medicine
DX: N63.10 Unspecified lump in the right breast, unspecified quadrant (principal); D05.11 Intraductal carcinoma in situ of right breast

== ENCOUNTER → 2017-08-15 | Outpatient (CLI) | payer OTHER, MEDICARE ==
[~2017-08-15] MED LIST changes: +ASPI81TA28 PO; +IPRA0.06; +TRAM-10 PO
[2017-08-15 10:00] LABS: BASO % 0.5 %; BASO ABS # 0.03 K/uL (0-0.2); EOS ABS # 0.24 K/uL (0-0.5); HEMATOCRIT 37.1 % (37-47); HEMOGLOBIN 12.1 g/dL (12.0-16.0); IG# 0.01 K/uL (0.00-0.02); LYMPH % 27.3 %; LYMPH ABS # 1.62 K/uL (1.2-3.4); MEAN CELL VOLUME 88.5 fL (80-100); MEAN CORPUSCULAR HEMOGLOBIN 28.9 pg (25-34); MEAN CORPUSCULAR HGB CONC 32.6 g/dl (32-36); MEAN PLATELET VOLUME 10.8 fL (7.4-10.4); MONO % 8.4 %; NEUT % 59.6 %; NEUT ABS # 3.54 K/uL (1.4-6.5); PLATELET COUNT 225 K/uL (130-400); RED CELL DISTRIBUTION WIDTH CV 13.9 % (11.5-14.5); WHITE BLOOD COUNT 5.94 K/uL (4.8-10.8)
[2017-08-15 10:13] LABS: BLOOD UREA NITROGEN 23 mg/dl (7-18); CALCIUM 8.8 mg/dl (8.5-10.1); CARBON DIOXIDE 31 mmol/L (21-32); CREATININE 1.03 mg/dl (0.60-1.20); GLUCOSE 100 mg/dl (70-99); POTASSIUM 3.5 mmol/L (3.5-5.1); SODIUM 139 mmol/L (136-145)
== END | disposition home or self-care (01) ==
LOC: C.LABVPSUW 09:12
PROVIDERS: ATTEND Surgery
DX: Z01.818 Encounter for other preprocedural examination (principal); C50.919 Malignant neoplasm of unspecified site of unspecified female breast

== ENCOUNTER 2017-08-21 07:57 | Observation (INO) | payer OTHER, MEDICARE ==
[2017-08-21] VITALS (9 sets, daily range): BP systolic 130–179; BP diastolic 49–83; PULSE 53–73; TEMP 36.3–36.9; O2SAT 94–100; Ht 162.6 cm; Wt 54.0 kg
[~2017-08-21] VITALS: Ht 162.6 cm; Wt 54.0 kg
[~2017-08-21 07:57] MED LIST changes: -ASPI1TAB83 PO; -BENZ100C7 PO; +CEFAZOLIN 2000MG IV PUSH 15 ML IV SCH; -IPRA0.06 NAE; +LACTATED RINGER'S 1000ML 1,000 ML IV SCH; -ONDA4TAB10 SL; -RBTDMUDC5 PO; -SACC250C3 PO; -TRAM-10 PO; -VNTHFA/IN INH
--- NOTE | 2017-08-21 10:13 | DIAGNOSTIC IMAGING REPORT ---
LYMPHOSCINTIGRAPHY CLINICAL HISTORY: Right breast cancer. PROCEDURE: Using standard sterile technique, 4 intradermal and one deep injection of 0.5 mCi of Lymphoseek was placed in the right breast. The patient tolerated the procedure well. There were no immediate complications. The patient was subsequently transported to the surgical suite. No imaging was obtained at the referring physician's request. IMPRESSION: Injection of 0.5 mCi of Lymphoseek in the right breast. Electronically signed by: Glenn Payne M.D. 08/21/2017 10:12 AM Dictated Date/Time: 08/21/2017 10:12 AM
--- NOTE | 2017-08-21 10:18 | History & Physical Bridge Note ---
H&P Re-Evaluation Bridge Note: I have examined the patient, reviewed the History & Physical and in the interval since the performance of the History & Physical I have noted the following changes of clinical significance: No changes noted
[2017-08-21] MEDS ORDERED: MIDAZOLAM HCL 1 MG/ML 2ML VIAL ONE (11:38)
[2017-08-21] MEDS ORDERED: FENTANYL CITRATE INJ 50 MCG/1 ML 2 ML VIAL ONE (11:38)
[2017-08-21] MEDS ORDERED: ISOSULFAN BLUE 10 MG/ML VIAL 5 ML ONE (11:42)
[2017-08-21] MEDS ORDERED: BUPIVACAINE 0.5 % 5 MG/1 ML MPF 30ML VIAL ONE (11:42)
[2017-08-21] MEDS ORDERED: EpHEDrine SULFATE INJ 50 MG/ML AMP IV PRN (12:15)
[2017-08-21] MEDS ORDERED: PROMETHAZINE HCL INJ 6.25 MG in SODIUM CHLORIDE 0.9% 50ML 50 ML IV PRN (12:15)
[2017-08-21] MEDS ORDERED: ONDANSETRON INJ 2 MG/ML 2 ML VIAL IV PRN ×2 (12:15→13:00)
[2017-08-21] MEDS ORDERED: ATROPINE SULFATE 0.1 MG/ML 5ML SYR IV PRN (12:15)
[2017-08-21] MEDS ORDERED: ONDANSETRON INJ 2 MG/ML 2 ML VIAL ONE (12:35)
[2017-08-21] MEDS ORDERED: PROPOFOL IV EMULSION 10 MG/ML 20 ML VIAL IV ONE (12:35)
[2017-08-21] MEDS ORDERED: DEXAMETHASONE SOD INJ 4 MG/ML VIAL ONE (12:35)
[2017-08-21] MEDS ORDERED: EpHEDrine SULFATE 50MG/5ML SYR ONE (12:36)
[2017-08-21] MEDS ORDERED: LIDOCAINE HCL 2% 2 ML VIAL (20MG/ML) ONE (12:36)
[2017-08-21] MEDS ORDERED: METHYLENE BLUE 0.5% 10 ML VIAL ONE (12:43)
--- NOTE | 2017-08-21 12:59 | [facility] Operative Report ---
Operative Report Operative Date Aug 21, 2017. Pre-Operative Diagnosis Right Breast Cancer Post-Operative Diagnosis Same as preoperative. Procedure(s) Performed Right Breast Lumpectomy with Needle Localization and with Right [place] Lymph Node Biopsy Surgeon Dr. Fer Hutchison Bonsai Culturist Surgeon(s) Dar Spear PA-C Estimated Blood Loss 10ml Findings sent lymph node neg Specimens FROZEN: 1.) Right [place] Lymph Node FRESH: A.) Right Breast Tissue, Skin Anterior, Needle Lateral, Long Silk Medial, Short Silk Superior, Blue Dye Deep PERMANENT: B.) Additional Right Breast Tissue, Long Silk Medial, Short Silk Superior, Methylene Blue New Margin Anesthesia Type General Complication(s) none Disposition Recovery Room / PACU I attest to the content of the Intraoperative Record and any orders documented therein. Any exceptions are noted below.
[2017-08-21] MEDS ORDERED: TRAMADOL HCL 50 MG TAB PO PRN (13:00)
[2017-08-21] MEDS ORDERED: HYDROmorphone INJ 0.5 MG/0.5 ML SYR IV PRN (13:00)
--- NOTE | 2017-08-21 13:31 | OPERATIVE REPORT ---
DATE OF OPERATION: 08/21/2017 NAME OF OPERATION: Right partial mastectomy, sentinel lymph node biopsy. PREOPERATIVE DIAGNOSIS: Right breast cancer. POSTOPERATIVE DIAGNOSIS: Same. STAFF SURGEON: Dr. Hutchison. WEAVER HAND: Jose Spear PA-C. ANESTHESIA: General. DESCRIPTION OF PROCEDURE: The patient was brought in the operating room and placed on the operating table in supine position. Her right breast was prepped and draped in usual fashion. She had a needle laterally. She had undergone injection in nuclear medicine for sentinel node biopsy. Incision was made in the right axilla using the Neoprobe localizing a sentinel node, sending it for frozen section, it was negative. During the frozen section, lumpectomy was performed making an elliptical incision around the needle, carrying dissection down deep, encountering dense tissue deep. The breast tissue was removed as right breast tissue with the skin anterior, needle lateral, long silk suture medial, short silk suture superior, and blue dye deep. I took additional deep tissue which incorporated additional medial, inferior, and superior tissue. This tissue was marked with a long silk suture medial, short silk suture superior, and then methylene blue as the new margin. The initial tissue was also placed into the Faxitron and sent to the breast center; the clip was in the center of the tissue. Metal clips were placed at the area where the mass was suspected to be. At this point, deep tissue was reapproximated using 2-0 plain catgut suture then the skin in the axilla reapproximated using 4-0 nylon suture. Skin in the breast reapproximated using 5-0 Prolene suture. Dressings applied and patient transferred to recovery room in stable condition. My offset press assistant helped with prepping, draping, exposure and excision of the tissue and closure of the wounds. I attest to the content of the Intraoperative Record and any orders documented therein. Any exception s are noted below.
[2017-08-21] MEDS: FENTANYL CITRATE INJ 50 MCG/1 ML 2 ML VIAL IV PRN ×2 (14:04→14:09)
--- NOTE | 2017-08-21 14:16 | Anesthesiology Progress Note ---
Anesthesia Post Op Note Date & Time Aug 21, 2017 at 14:16 Vital Signs Pain Intensity: 4.0 Vital Signs Past 12 Hours Date Time Temp Pulse Resp B/P (MAP) Pulse Ox O2 Delivery O2 Flow Rate FiO2 08/21/17 14:10 58 14 162/62 100 Nasal Cannula 2 08/21/17 14:00 58 14 168/60 100 Nasal Cannula 2 08/21/17 13:50 58 14 164/60 100 Nasal Cannula 2 08/21/17 13:40 36.1 58 14 171/54 96 Nasal Cannula 2 08/21/17 13:30 60 14 176/52 96 Oxymask 10 08/21/17 13:20 64 14 182/51 100 Oxymask 10 08/21/17 13:14 36.0 65 14 180/50 100 Oxymask 10 08/21/17 10:10 36.4 55 20 154/83 (106) 97 Room Air Notes Mental Status: alert / awake / arousable, participated in evaluation Pt Amnestic to Procedure: Yes Nausea / Vomiting: adequately controlled Pain: adequately controlled Airway Patency, RR, SpO2: stable & adequate BP & HR: stable & adequate Hydration State: stable & adequate Anesthetic Complications: no major complications apparent
--- NOTE | 2017-08-21 15:12 | MAMMOGRAPHY REPORT ---
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 Patient present s for preoperative needle localization prior to lumpectomy. Please refer to the report from right breast tomosynthesis guided needle localization performed at e same time for full detail. IMPRESSION: SPECIMEN Please refer to the report from right breast tomosynthesis guided needle localization performed at e same time for full detail. Daisy Yan M.D. ay/:08/21/2017 09:02:42 Web Assistant: Valeria SOUZA(R)(M), [facility]
[2017-08-21] MEDS ORDERED: HydrALAZINE HCL 20 MG/ML VIAL IV. PRN (15:15)
--- NOTE | 2017-08-21 15:17 | Medical Consult ---
Consultation Date of Consultation: Aug 21, 2017. Attending Physician: Fer Hutchison M.D. Reason for Consultation: Medical management History of Present Illness Patient is a pleasant 86 y/o female, with PMHx of peripheral artery disease s/p multiple angioplasties and R AKA, paroxysmal a.fib, chronic diastolic dysfunction, and HTN, R breast cancer s/p R lumpectomy by Dr. Hutchison on 08/21. Hospitalist team was consulted for medical management. Patient feeling well postop- a little drowsy. Just given something for pain- currently comfortable. Has not eaten/drank since procedure. No BM/flatus postop. Patient denies any fever, chills, sweats, lightheadedness, dizziness, vision changes, CP, palpitations, edema, SOB, wheezing, cough, abdominal pain, nausea, vomiting, diarrhea, urinary symptoms, melena, numbness/tingling, weakness, muscle/joint pain, anxiety/depression, active bleeding, or new skin discoloration/changes. Past Medical/Surgical History Medical Problems: peripheral artery disease s/p multiple angioplasties and R AKA chronic diastolic dysfunction HTN paroxysmal a.fib R breast cancer s/p R lumpectomy Family History FH: cancer FH: gallbladder disease Hypertension Social History Smoking Status: Former Smoker Drug Use: none Marital Status: Housing Status: lives with family Occupation Status: retired Allergies Coded Allergies: Sulfa Antibiotics (Verified Allergy, Intermediate, RASH, 08/21/17) Morphine and Related (Verified Allergy, Unknown, see notes, 08/21/17) pt denies allergy to morphine - morphine derivatives listed as allergy on faxed list - no reaction notation listed Codeine (Verified Adverse Reaction, Mild, ABD CRAMPS, 08/21/17) Home Medications Current Inpatient Medications Medications (Trade) Dose Ordered Sig/[place] Route Start Time Stop Time Status Last Admin Dose Admin Lactated Ringer's 1,000 ml @ 15 mls/hr Q24H IV 08/21/17 06:00 08/22/17 05:59 08/21/17 10:39 15 MLS/HR Cefazolin Sodium 15 ml @ 3.75 mls/ min PREOP IV 08/21/17 06:00 08/21/17 18:00 08/21/17 11:54 3.75 MLS/MIN Fentanyl Citrate (Fentanyl Inj) 50 mcg Q5M PRN IV 08/21/17 12:15 08/21/17 17:15 08/21/17 14:09 50 MCG Ondansetron HCl (Zofran Inj) 4 mg ONE PRN IV 08/21/17 12:15 08/21/17 17:15 Promethazine HCl 6.25 mg/Sodium Chloride 50.25 ml @ 202 mls/hr ONE PRN IV 08/21/17 12:15 08/21/17 17:15 Ephedrine Sulfate (EpHEDrine SULFATE INJ) 5 mg Q5M PRN IV 08/21/17 12:15 08/21/17 17:15 Atropine Sulfate (Atropine Sulfate 0.1mg/ml Inj) 0.5 mg Q1M PRN IV 08/21/17 12:15 08/21/17 17:15 Furosemide (Lasix Tab) 20 mg QAM PO 08/22/17 09:00 09/21/17 08:59 Gabapentin (Neurontin Cap) 200 mg TID PO 08/21/17 15:00 09/20/17 14:59 Losartan Potassium (coZAAR TAB) 100 mg QAM PO 08/22/17 09:00 09/21/17 08:59 Metoprolol Tartrate (Lopressor Tab) 75 mg BID PO 08/21/17 21:00 09/20/17 20:59 Lactated Ringer's 1,000 ml @ 50 mls/hr Q20H IV 08/21/17 15:00 08/21/17 15:01 UNV Cefazolin Sodium 1000 mg/Syringe 7.5 ml @ 2.5 mls/min Q8H IV 08/21/17 20:00 08/22/17 04:02 Hydromorphone HCl (Dilaudid Inj) 0.5 mg Q3H PRN IV 08/21/17 13:00 09/04/17 12:59 Tramadol HCl (Ultram Tab) `1-2 tabs for pain 1 tab ... Q4H PRN PO 08/21/17 13:00 09/20/17 12:59 Ondansetron HCl (Zofran Inj) 4 mg Q6H PRN IV 08/21/17 13:00 09/20/17 12:59 Current Inpatient Medications Current Inpatient Medications Medications (Trade) Dose Ordered Sig/[place] Route Start Time Stop Time Status Last Admin Dose Admin Lactated Ringer's 1,000 ml @ 15 mls/hr Q24H IV 08/21/17 06:00 08/22/17 05:59 08/21/17 10:39 15 MLS/HR Cefazolin Sodium 15 ml @ 3.75 mls/ min PREOP IV 08/21/17 06:00 08/21/17 18:00 08/21/17 11:54 3.75 MLS/MIN Fentanyl Citrate (Fentanyl Inj) 50 mcg Q5M PRN IV 08/21/17 12:15 08/21/17 17:15 08/21/17 14:09 50 MCG Ondansetron HCl (Zofran Inj) 4 mg ONE PRN IV 08/21/17 12:15 08/21/17 17:15 Promethazine HCl 6.25 mg/Sodium Chloride 50.25 ml @ 202 mls/hr ONE PRN IV 08/21/17 12:15 08/21/17 17:15 Ephedrine Sulfate (EpHEDrine SULFATE INJ) 5 mg Q5M PRN IV 08/21/17 12:15 08/21/17 17:15 Atropine Sulfate (Atropine Sulfate 0.1mg/ml Inj) 0.5 mg Q1M PRN IV 08/21/17 12:15 08/21/17 17:15 Furosemide (Lasix Tab) 20 mg QAM PO 08/22/17 09:00 09/21/17 08:59 Gabapentin (Neurontin Cap) 200 mg TID PO 08/21/17 15:00 09/20/17 14:59 Losartan Potassium (coZAAR TAB) 100 mg QAM PO 08/22/17 09:00 09/21/17 08:59 Metoprolol Tartrate (Lopressor Tab) 75 mg BID PO 08/21/17 21:00 09/20/17 20:59 Lactated Ringer's 1,000 ml @ 50 mls/hr Q20H IV 08/21/17 15:00 08/21/17 15:01 UNV Cefazolin Sodium 1000 mg/Syringe 7.5 ml @ 2.5 mls/min Q8H IV 08/21/17 20:00 08/22/17 04:02 Hydromorphone HCl (Dilaudid Inj) 0.5 mg Q3H PRN IV 08/21/17 13:00 09/04/17 12:59 Tramadol HCl (Ultram Tab) `1-2 tabs for pain 1 tab ... Q4H PRN PO 08/21/17 13:00 09/20/17 12:59 Ondansetron HCl (Zofran Inj) 4 mg Q6H PRN IV 08/21/17 13:00 09/20/17 12:59 Physical Exam Date Time Temp Pulse Resp B/P (MAP) Pulse Ox O2 Delivery O2 Flow Rate FiO2 08/21/17 14:10 58 14 162/62 100 Nasal Cannula 2 08/21/17 14:00 58 14 168/60 100 Nasal Cannula 2 08/21/17 13:50 58 14 164/60 100 Nasal Cannula 2 08/21/17 13:40 36.1 58 14 171/54 96 Nasal Cannula 2 08/21/17 13:30 60 14 176/52 96 Oxymask 10 08/21/17 13:20 64 14 182/51 100 Oxymask 10 08/21/17 13:14 36.0 65 14 180/50 100 Oxymask 10 08/21/17 10:10 36.4 55 20 154/83 (106) 97 Room Air General Appearance: no apparent distress, + thin, + pertinent finding (O2 protocol ) Head: normocephalic, atraumatic Eyes: normal inspection, PERRL ENT: hearing grossly normal Neck: supple Respiratory/Chest: lungs clear, no respiratory distress, no accessory muscle use Cardiovascular: regular rate, rhythm Abdomen/GI: normal bowel sounds, non tender, soft Back: normal inspection Extremities/Musculoskelatal: no calf tenderness, + pertinent finding (R AKA; LLE chronic stasis changes; skin tear- wrapped in clean dressing by RN ) Neurologic/Psych: alert, normal mood/affect, oriented x 3 Skin: normal color, warm/dry, no rash Assessment & Plan Patient is a pleasant 86 y/o female, with PMHx of peripheral artery disease s/p multiple angioplasties and R AKA, paroxysmal a.fib, chronic diastolic dysfunction, and HTN, s/p R lumpectomy by Dr. Hutchison on 08/21. Hospitalist team was consulted for medical management. s/p R lumpectomy by Dr. Hutchison on 08/21: - Surgical management, pain management, DVT prophylaxis as per primary team - Follow postop CBC and PRP Chronic diastolic CHF, HTN, paroxysmal a.fib- STABLE: - Continue Lasix 20 mg daily, Metoprolol 75 mg BID w/ hold parameters, Clonidine 0.2 mg BID - Hold Losartan 100 mg daily pending postop PRP - IV Hydralazine PRN DVT prophylaxis: As per surgical team Code status: LEVEL I, FULL Dispo: As per primary team
[2017-08-21] MEDS ORDERED: LACTATED RINGER'S 1000ML 1,000 ML IV SCH (15:30)
[2017-08-21] MEDS: RESTASIS: ORDER AWAITING ACTION SCH ×2 (16:00→23:48)
[2017-08-21] MEDS: GABAPENTIN 100 MG CAP PO SCH ×2 (16:11→21:09)
[2017-08-21] MEDS: CEFAZOLIN IV 1,000 MG in SYRINGE 0 ML IV SCH (19:36)
[2017-08-21] MEDS ORDERED: CLONIDINE HCL 0.2 MG TAB PO SCH (21:00)
[2017-08-21] MEDS: METOPROLOL TARTRATE 50 MG TAB PO SCH (21:10)
[2017-08-21] MEDS: CLONIDINE HCL 0.1 MG TAB PO SCH (21:34)
[2017-08-22] MEDS: CEFAZOLIN IV 1,000 MG in SYRINGE 0 ML IV SCH (03:28)
[2017-08-22 04:00] VITALS: BP 119/54; PULSE 64; TEMP 36.7; O2SAT 97
[2017-08-22] MEDS ORDERED: TRAM-10 PO (06:02)
--- NOTE | 2017-08-22 06:04 | Discharge Instructions ---
Discharge Instructions Date of Service Aug 22, 2017. Admission Reason for Admission: Right Breast Cancer W/Hosp Loc & Nm Lymph Inj Discharge Discharge Diagnosis / Problem: Rt breast cancer Discharge Goals Goal(s): Decrease discomfort, Improve function, Improve disease control Activity Recommendations Activity Limitations: as noted below Lifting Limitations: no more than 25 pounds Exercise/Sports Limitations: until after follow-up appointment May Resume Sexual Activity: when tolerated Shower/Bathe: tomorrow (do not soak in tub- may shower) . Instructions / Follow-Up Instructions / Follow-Up SPECIAL CARE INSTRUCTIONS: * Cover incisions and change daily for comfort/drainage. * May use ibuprofen for pain as tolerated. * Expect some swelling and bruising. Call your doctor if: * Temperature above 101 degrees * Pain not relieved by pain medicine ordered * There is increased drainage or redness from any incision * You have any unanswered questions or concerns [phone]. for next week- wound check and some suture removal FOLLOW UP VISIT: If not already scheduled, please call the office for a follow-up visit. OFFICE PHONE NUMBER: Dr. Hutchison Office Current Hospital Diet Patient's current hospital diet: Regular Diet Discharge Diet Recommended Diet: Regular Diet Procedures Procedures Performed: Right Breast Lumpectomy with Needle Localization and with Right [place] Lymph Node Biopsy Pending Studies Studies pending at discharge: no Medical Emergencies . Who to Call and When: Medical Emergencies: If at any time you feel your situation is an emergency, please call 911 immediately. . Non-Emergent Contact Non-Emergency issues call your: Primary Care Provider, Surgeon . "Provider Documentation" section prepared by Fer Hutchison. .
[2017-08-22] MEDS: RESTASIS: ORDER AWAITING ACTION SCH (08:00)
[2017-08-22 08:34] LABS: HEMATOCRIT 37.3 % (37-47); HEMOGLOBIN 12.1 g/dL (12.0-16.0); MEAN CORPUSCULAR HEMOGLOBIN 28.9 pg (25-34); MEAN CORPUSCULAR HGB CONC 32.4 g/dl (32-36); MEAN PLATELET VOLUME 10.5 fL (7.4-10.4); PLATELET COUNT 219 K/uL (130-400); RED CELL DISTRIBUTION WIDTH CV 13.8 % (11.5-14.5); RED CELL DISTRIBUTION WIDTH SD 45.2 fL (36.4-46.3); WHITE BLOOD COUNT 11.91 K/uL (4.8-10.8)
[2017-08-22 08:35] VITALS: BP 121/52; PULSE 0; PULSE 61; TEMP 36.8; O2SAT 98
[2017-08-22] MEDS: GABAPENTIN 100 MG CAP PO SCH (08:43)
[2017-08-22] MEDS: CLONIDINE HCL 0.1 MG TAB PO SCH (08:44)
--- NOTE | 2017-08-22 08:57 | DISCHARGE SUMMARY ---
PRINCIPAL DIAGNOSIS: Right breast cancer. PROCEDURES: The patient underwent right partial mastectomy with sentinel lymph node biopsy. HISTORY OF PRESENT ILLNESS: The patient is an 86-year-old female who underwent a core biopsy of the right breast showing breast cancer. The patient was brought into the hospital on 08/21/2017, where she underwent initial needle localization and breast injection and then underwent right partial mastectomy with sentinel lymph node biopsy. She tolerated the procedure very well and has done quite well overnight and is felt stable for discharge home today with a visiting nurse.
[2017-08-22] MEDS ORDERED: LOSARTAN POTASSIUM 50 MG TAB PO SCH (09:00)
[2017-08-22] MEDS ORDERED: FUROSEMIDE 20 MG TAB PO SCH (09:00)
[2017-08-22 09:04] LABS: CALCIUM 8.4 mg/dl (8.5-10.1); CREATININE 1.28 mg/dl (0.60-1.20); POTASSIUM 3.8 mmol/L (3.5-5.1)
[2017-08-22] MEDS: METOPROLOL TARTRATE 50 MG TAB PO SCH (09:23)
[2017-08-22 09:36] VITALS: BP 121/52; PULSE 61; TEMP 36.8; O2SAT 98
--- NOTE | 2017-08-22 14:54 | MAMMOGRAPHY REPORT ---
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 Patient presents for preoperative needle and wire localization prior to surgical excision. COMPARISON: Comparison is made to exams dated: 06/28/2016 mammogram, 07/01/2017 mammogram, 07/10/2017 ma mmogram, 07/10/2017 ultrasound, 07/17/2017 mammogram, and 07/17/2017 ultrasound biopsy - [facility]. PATIENT CONSENT: The risks of the procedure were explained to the patient and informed consent was ob tained. PROCEDURE DESCRIPTION: A needle localization was performed for the abnormality located in the right b reast at 11 o'clock anterior depth. With the patient in the seated position, the right breast was pl aced in lateralmedial compression. A tomosynthesis view was obtained which redemonstrates the area of architectural distortion and associated biopsy marker clip, which is the intended target for local ization. The skin of the right breast was cleansed with alcohol. 1% buffered lidocaine was administ ered as local anesthesia. A 3 cm Bagley needle and wire combination was inserted into the left lemuel st and optimal position was confirmed with a repeat tomosynthesis view. Then the breast was repositi oned into the CC projection and fine adjustments were made of the needle and wire. All of the proced ure including the approach needle length were discussed with the operating surgeon prior to surgery. The patient tolerated the procedure well and there was no immediate complication. She was transferr ed to the hospital operating room in satisfactory condition. The specimen radiograph demonstrates the localizing needle, wire, ribbon-shaped biopsy marker clip an area of architectural distortion in question. IMPRESSION: NEEDLE LOCALIZATION Status post successful preoperative needle and wire localization for biopsy-proven carcinoma in the 1 1:00 right breast. The imaged specimen includes the intended abnormalities. Daisy Yan M.D. ay/:08/21/2017 15:40:33 Stamping Bench Die Maker: Pearl ANAND)(M), [facility]
== END 2017-08-22 10:35 | disposition home or self-care (01) ==
LOC: C.ACU 07:57 → EDSTATUS 08:15 → C.MSN 13:07 → ENRESERV 13:34
PROVIDERS: ADMIT Surgery; ATTEND Surgery
DX: C50.911 Malignant neoplasm of unspecified site of right female breast (principal); Z17.0 Estrogen receptor positive status [ER+]; I73.9 Peripheral vascular disease, unspecified; I11.0 Hypertensive heart disease with heart failure; I50.32 Chronic diastolic (congestive) heart failure; I48.0 Paroxysmal atrial fibrillation; Z87.891 Personal history of nicotine dependence; Z88.2 Allergy status to sulfonamides; Z88.5 Allergy status to narcotic agent; Z98.62 Peripheral vascular angioplasty status; Z89.611 Acquired absence of right leg above knee

== ENCOUNTER → 2017-12-10 | Outpatient (CLI) | payer OTHER, MEDICARE ==
[~2017-12-10] MED LIST changes: +ANAS1TAB59 PO; -CEFAZOLIN 2000MG IV PUSH 15 ML IV SCH; -LACTATED RINGER'S 1000ML 1,000 ML IV SCH
== END | disposition home or self-care (01) ==
LOC: C.MAMM 07:42
PROVIDERS: ATTEND Internal Medicine Hematology & Oncology
DX: M81.0 Age-related osteoporosis without current pathological fracture (principal); M85.852 Other specified disorders of bone density and structure, left thigh

== ENCOUNTER → 2017-12-11 | Outpatient (CLI) | payer OTHER, MEDICARE ==
[2017-12-11 08:42] LABS: BASO % 0.6 %; BASO ABS # 0.04 K/uL (0-0.2); EOS % 2.5 %; EOS ABS # 0.16 K/uL (0-0.5); HEMATOCRIT 38.3 % (37-47); HEMOGLOBIN 12.4 g/dL (12.0-16.0); IG# 0.01 K/uL (0.00-0.02); LYMPH % 29.1 %; MEAN CELL VOLUME 89.1 fL (80-100); MEAN CORPUSCULAR HEMOGLOBIN 28.8 pg (25-34); MEAN CORPUSCULAR HGB CONC 32.4 g/dl (32-36); MEAN PLATELET VOLUME 10.7 fL (7.4-10.4); MONO % 6.7 %; MONO ABS # 0.44 K/uL (0.11-0.59); NEUT % 60.9 %; NEUT ABS # 3.97 K/uL (1.4-6.5); PLATELET COUNT 206 K/uL (130-400); RED CELL DISTRIBUTION WIDTH CV 13.4 % (11.5-14.5); RED CELL DISTRIBUTION WIDTH SD 43.4 fL (36.4-46.3); WHITE BLOOD COUNT 6.52 K/uL (4.8-10.8)
[2017-12-11 08:54] LABS: ALBUMIN 2.9 gm/dl (3.4-5.0); ALKALINE PHOSPHATASE 172 U/L (45-117); ALT/SGPT 20 U/L (12-78); AST/SGOT 32 U/L (15-37); BLOOD UREA NITROGEN 25 mg/dl (7-18); CALCIUM 8.5 mg/dl (8.5-10.1); CARBON DIOXIDE 29 mmol/L (21-32); CREATININE 0.92 mg/dl (0.60-1.20); GLUCOSE 85 mg/dl (70-99); POTASSIUM 3.6 mmol/L (3.5-5.1); SODIUM 140 mmol/L (136-145); TOTAL PROTEIN 6.9 gm/dl (6.4-8.2)
== END | disposition home or self-care (01) ==
LOC: C.LABSPEC 08:25
PROVIDERS: ATTEND Internal Medicine Hematology & Oncology
DX: C50.411 Malignant neoplasm of upper-outer quadrant of right female breast (principal)

== ENCOUNTER 2018-10-15 18:37 | Inpatient (IN) ==
[2018-10-15] MEDS ORDERED: SODIUM CHLORIDE 0.9% 500 ML IV SCH (18:45)
[2018-10-15] MEDS ORDERED: ONDANSETRON INJ 2 MG/ML 2 ML VIAL IV STA ×2 (18:45→20:57)
--- NOTE | 2018-10-15 18:48 | Emergency Department Note ---
Entered by Rita Weems acting as a scribe for Josh Elise DO History of Present Illness General Chief complaint: Abdominal Pain Stated complaint: AB PAIN Source: patient Limitations: no limitations History of Present Illness Provider complaint: Abdominal Pain Onset (ago): hour(s) Location: abdomen Quality: + other (+cramping ) Associated symptoms: + nausea/vomiting (nausea no vomiting ) and + other (+diarrhea, +rectal bleeding); no chest pain and no shortness of breath Treatments prior to arrival: other (+blood pressure medication ) The patient is a 87 year old female who presents to the Emergency Room with complaints of abdominal pain that began in the morning prior to arrival. The patient describes her pain as cramping in quality. The patient states that she has nausea, diarrhea, and rectal bleeding. The patient states that she had 3 episodes of diarrhea prior to arrival. The patient denies any chest pain, shortness of breath, or vomiting. The patient denies being on any antibiotics recently. The patient denies a history of bowel infections. The patient states that she has a history of hypertension and states that she took her blood pressure medications this morning. Home Medications Home Medications Medication Instructions Recorded Confirmed Type anastrozole 1 mg PO QPM 10/15/18 10/15/18 History aspirin 81 mg PO QPM 10/15/18 10/15/18 History clonidine HCl 0.2 mg PO BID 10/15/18 10/15/18 History cyclosporine [Restasis] 1 drp OPB Q12H 10/15/18 10/15/18 History furosemide 20 mg PO QAM 10/15/18 10/15/18 History gabapentin 200 mg PO BID 10/15/18 10/15/18 History gabapentin 300 mg PO HS 10/15/18 10/15/18 History losartan 100 mg PO QAM 10/15/18 10/15/18 History metoprolol tartrate 75 mg PO Q12H 10/15/18 10/15/18 History Allergies Allergy/AdvReac Type Severity Reaction Status Date / Time Sulfa (Sulfonamide Allergy Intermediate RASH Verified 05/22/18 14:34 Antibiotics) morphine Allergy Unknown see notes Verified 05/22/18 14:34 piperacillin [From Zosyn] AdvReac Intermediate Difficulty Verified 10/15/18 21:34 Breathing tazobactam [From Zosyn] AdvReac Intermediate Difficulty Verified 10/15/18 21:34 Breathing codeine AdvReac Mild ABD CRAMPS Verified 05/22/18 14:34 Past Med/Surg History Medical History Acute kidney injury Breast cancer CKD (chronic kidney disease) Cellulitis Empyema HTN (hypertension) Surgical History S/P appendectomy S/P cholecystectomy Status post lower limb amputation Social History Feels Safe at Home: Yes Smoking Status: Former smoker Review of Systems See HPI for pertinent positives & negatives. and A total of 10 systems reviewed and were otherwise negative Physical Exam Vital Signs Vital Signs - 24 hr 10/15/18 18:41 10/15/18 18:42 10/15/18 18:44 Temperature Temperature Source Sepsis Recent Fever Within 48 Hours Sepsis Action Taken by Nursing Pulse Rate 79 71 74 Pulse Rate from SpO2 Sensor 73 74 Respiratory Rate 21 17 21 Respiratory Effort / Characteristics Respiratory Depth Blood Pressure 242/88 H 243/101 H Blood Pressure [Left Arm] Blood Pressure [Right Arm] Blood Pressure Mean 139 148 Blood Pressure Mean [Left Arm] Blood Pressure Mean [Right Arm] Blood Pressure Position Pulse Oximetry 95 99 Oxygen Delivery Method Oxygen Flow Rate 10/15/18 18:45 10/15/18 18:49 10/15/18 18:50 Temperature 36.8 C Temperature Source Oral Sepsis Recent Fever Within 48 Hours No Sepsis Action Taken by Nursing No Action Required Pulse Rate 70 71 Pulse Rate from SpO2 Sensor 70 Respiratory Rate 20 21 Respiratory Effort / Characteristics Non-Labored Respiratory Depth Normal Blood Pressure 243/101 H Blood Pressure [Left Arm] 243/101 H Blood Pressure [Right Arm] 242/88 H Blood Pressure Mean 148 Blood Pressure Mean [Left Arm] 148 Blood Pressure Mean [Right Arm] 139 Blood Pressure Position Sitting Pulse Oximetry 98 98 96 Oxygen Delivery Method Room Air Room Air Oxygen Flow Rate 10/15/18 19:00 10/15/18 19:10 10/15/18 19:34 Temperature Temperature Source Sepsis Recent Fever Within 48 Hours Sepsis Action Taken by Nursing Pulse Rate 65 67 86 Pulse Rate from SpO2 Sensor 65 67 Respiratory Rate 18 20 28 H Respiratory Effort / Characteristics Respiratory Depth Blood Pressure Blood Pressure [Left Arm] Blood Pressure [Right Arm] Blood Pressure Mean Blood Pressure Mean [Left Arm] Blood Pressure Mean [Right Arm] Blood Pressure Position Pulse Oximetry 94 92 Oxygen Delivery Method Oxygen Flow Rate 10/15/18 19:40 10/15/18 19:50 10/15/18 19:53 Temperature Temperature Source Sepsis Recent Fever Within 48 Hours Sepsis Action Taken by Nursing Pulse Rate 71 68 68 Pulse Rate from SpO2 Sensor Respiratory Rate 24 21 23 Respiratory Effort / Characteristics Respiratory Depth Blood Pressure 171/55 H Blood Pressure [Left Arm] Blood Pressure [Right Arm] Blood Pressure Mean 93 Blood Pressure Mean [Left Arm] Blood Pressure Mean [Right Arm] Blood Pressure Position Pulse Oximetry Oxygen Delivery Method Oxygen Flow Rate 10/15/18 20:00 10/15/18 20:10 10/15/18 20:20 Temperature Temperature Source Sepsis Recent Fever Within 48 Hours Sepsis Action Taken by Nursing Pulse Rate 68 68 78 Pulse Rate from SpO2 Sensor Respiratory Rate 21 20 21 Respiratory Effort / Characteristics Respiratory Depth Blood Pressure Blood Pressure [Left Arm] Blood Pressure [Right Arm] Blood Pressure Mean Blood Pressure Mean [Left Arm] Blood Pressure Mean [Right Arm] Blood Pressure Position Pulse Oximetry Oxygen Delivery Method Oxygen Flow Rate 10/15/18 20:30 10/15/18 20:38 10/15/18 20:39 Temperature 36.7 C Temperature Source Sepsis Recent Fever Within 48 Hours Sepsis Action Taken by Nursing Pulse Rate 97 H 97 H 95 H Pulse Rate from SpO2 Sensor 100 H 96 H 93 H Respiratory Rate 30 H 19 20 Respiratory Effort / Characteristics Respiratory Depth Blood Pressure 144/101 H Blood Pressure [Left Arm] Blood Pressure [Right Arm] Blood Pressure Mean 115 Blood Pressure Mean [Left Arm] Blood Pressure Mean [Right Arm] Blood Pressure Position Pulse Oximetry 76 L 73 L 75 L Oxygen Delivery Method Oxygen Flow Rate 10/15/18 20:40 10/15/18 20:50 10/15/18 21:00 Temperature Temperature Source Sepsis Recent Fever Within 48 Hours Sepsis Action Taken by Nursing Pulse Rate 100 H 77 92 H Pulse Rate from SpO2 Sensor 100 H 82 91 H Respiratory Rate 25 H 21 19 Respiratory Effort / Characteristics Respiratory Depth Blood Pressure Blood Pressure [Left Arm] Blood Pressure [Right Arm] Blood Pressure Mean Blood Pressure Mean [Left Arm] Blood Pressure Mean [Right Arm] Blood Pressure Position Pulse Oximetry 82 L 91 97 Oxygen Delivery Method Non-rebreather Non-rebreather Non-rebreather Oxygen Flow Rate 15 15 15 10/15/18 21:01 10/15/18 21:10 10/15/18 21:20 Temperature Temperature Source Sepsis Recent Fever Within 48 Hours Sepsis Action Taken by Nursing Pulse Rate 91 H 75 90 Pulse Rate from SpO2 Sensor 90 71 89 Respiratory Rate 20 19 22 Respiratory Effort / Characteristics Respiratory Depth Blood Pressure 211/64 H Blood Pressure [Left Arm] Blood Pressure [Right Arm] Blood Pressure Mean 113 Blood Pressure Mean [Left Arm] Blood Pressure Mean [Right Arm] Blood Pressure Position Pulse Oximetry 94 98 96 Oxygen Delivery Method BiPAP Oxygen Flow Rate 10/15/18 21:30 10/15/18 21:40 10/15/18 21:48 Temperature Temperature Source Sepsis Recent Fever Within 48 Hours Sepsis Action Taken by Nursing Pulse Rate 87 103 H 88 Pulse Rate from SpO2 Sensor 87 87 Respiratory Rate 24 20 24 Respiratory Effort / Characteristics Respiratory Depth Blood Pressure 196/71 H Blood Pressure [Left Arm] Blood Pressure [Right Arm] Blood Pressure Mean 112 Blood Pressure Mean [Left Arm] Blood Pressure Mean [Right Arm] Blood Pressure Position Pulse Oximetry 100 100 Oxygen Delivery Method BiPAP BiPAP Oxygen Flow Rate 10/15/18 21:50 Temperature Temperature Source Sepsis Recent Fever Within 48 Hours Sepsis Action Taken by Nursing Pulse Rate 89 Pulse Rate from SpO2 Sensor 89 Respiratory Rate 25 H Respiratory Effort / Characteristics Respiratory Depth Blood Pressure Blood Pressure [Left Arm] Blood Pressure [Right Arm] Blood Pressure Mean Blood Pressure Mean [Left Arm] Blood Pressure Mean [Right Arm] Blood Pressure Position Pulse Oximetry 100 Oxygen Delivery Method Oxygen Flow Rate GENERAL: The patient is awake and alert. She is very anxious appearing and appears to be in moderate pain. EYES: The conjunctivae are clear. The pupils are round and reactive. EARS, NOSE, MOUTH AND THROAT: The nose is without any evidence of any deformity. Mucous membranes are moist.Tongue is midline NECK: The neck is nontender and supple. RESPIRATORY: Diminished breath sounds were noted throughout. There is scattered rhonchi noted. CARDIOVASCULAR: Regular rate and rhythm noted. There no murmurs rubs or gallops normal S1 normal S2 GASTROINTESTINAL: The abdomen is soft. There is diffuse tenderness to palpation but no guarding or rigidity. MUSCULOSKELETAL/EXTREMITIES: Right lower extremity amputation was noted. SKIN: Venous stasis changes were noted in the left lower extremity. Skin was cool. There is pedal edema in the left leg. NEUROLOGIC: Patient is awake alert and oriented x3. Course 1840: The patient was evaluated in room A11B, and a complete history and physical examination were performed. 1950: I checked on the patient. The patient was updated on their imaging and lab results. The patient agreed to admission. 2005: I discussed the [facility]'s [facility] will [facility] the patient for further hospitalization. Consultations Consultation #1: Dr. Nieves [facility] Hospitalist Time: 20:05 Administered Medications Fentanyl Citrate (Fentanyl Citrate) 50 mcg IV Q15M PRN PRN Reason: Pain Stop: 10/29/18 18:44 Last Admin: 10/15/18 20:56 Dose: 50 mcg Documented by: [id number] Admin: 10/15/18 18:57 Dose: 50 mcg Documented by: [id number] Ioversol (Optiray 320 125ml) 120 ml IV ONCE PRN PRN Reason: Interaction Checking Stop: 10/19/18 19:29 Last Admin: 10/15/18 19:31 Dose: 1 ml Documented by: [id number] Discontinued Medications Albuterol (Duoneb) Confirm Administered Dose 3 ml .ROUTE .STK-MED ONE Stop: 10/15/18 20:32 Last Admin: 10/15/18 20:35 Dose: 3 ml Documented by: [id number] Furosemide (Lasix) 20 mg IV NOW STA Stop: 10/15/18 20:58 Last Admin: 10/15/18 21:08 Dose: 20 mg Documented by: [id number] Sodium Chloride (Nss) 500 mls @ 999 mls/hr IV .Q31M JANEEN Stop: 10/15/18 19:15 Last Infusion: 10/15/18 19:20 Dose: 0 mls/hr Documented by: [id number] Admin: 10/15/18 18:56 Dose: 999 mls/hr Documented by: [id number] Sodium Chloride (Nss) 500 mls @ 999 mls/hr IV .Q31M ONE Stop: 10/15/18 20:24 Last Infusion: 10/15/18 20:19 Dose: 0 mls/hr Documented by: [id number] Admin: 10/15/18 20:01 Dose: 999 mls/hr Documented by: [id number] Piperacillin Sod/Tazobactam Sod (Zosyn) 4.5 gm in 120 mls @ 240 mls/hr IV NOW ONE Stop: 10/15/18 20:31 Last Infusion: 10/15/18 20:31 Dose: 0 mls/hr Documented by: [id number] Admin: 10/15/18 20:18 Dose: 240 mls/hr Documented by: [id number] Ondansetron HCl (Zofran) 4 mg IV NOW STA Stop: 10/15/18 18:46 Last Admin: 10/15/18 18:56 Dose: 4 mg Documented by: [id number] Ondansetron HCl (Zofran) 4 mg IV NOW STA Stop: 10/15/18 20:58 Last Admin: 10/15/18 21:00 Dose: 4 mg Documented by: [id number] Medical Decision Making Differential Diagnosis Differential diagnosis: Etiologies such as biliary colic, cholecystitis, hepatitis, perihepatitis, pancreatitis, cardiac disease, pancreatitis, gastritis, peptic ulcer disease, appendicitis, ovarian cyst, ovarian torsion, ectopic , pelvic inflammatory disease, cystitis, diverticulitis, mesenteric ischemia, inflammatory bowel disease, ileus, bowel obstruction, aortic pathology, shingles, as well as others were considered. Medical Records Attestation: I reviewed the patient's medical records. Home Medications Current Medication List: was personally reviewed by me Laboratory Data Attestation: I reviewed the patient's lab results. Result diagrams: 10/15/18 18:47 10/15/18 18:47 Lab Results 10/15/18 10/15/18 10/15/18 Range/Units 18:47 18:47 18:47 WBC 13.35 H (4.8-10.8) K/uL RBC 4.83 (4.2-5.4) M/uL Hgb 14.5 (12.0-16.0) g/dL POC Hgb (12.0-16.0) g/dl Hct 43.2 (37-47) % POC Hct (37-47) % MCV 89.4 (80-100) fL MCH 30.0 (25-34) pg MCHC 33.6 (32-36) g/dL RDW Std Deviation 43.6 (36.4-46.3) fL RDW Coeff of Lenard 13.2 (11.5-14.5) % Plt Count 261 (130-400) K/uL MPV 10.3 (7.4-10.4) fL Immature Gran % (Auto) 0.2 % Neut % (Auto) 81.7 % Lymph % (Auto) 12.4 % Hoke % (Auto) 4.6 % Eos % (Auto) 0.9 % Baso % (Auto) 0.2 % Immature Gran # (Auto) 0.03 H (0.00-0.02) K/uL Neut # (Auto) 10.90 H (1.4-6.5) K/uL Lymph # (Auto) 1.66 (1.2-3.4) K/uL Hoke # (Auto) 0.61 H (0.11-0.59) K/uL Eos # (Auto) 0.12 (0-0.5) K/uL Baso # (Auto) 0.03 (0-0.2) K/uL PT 10.7 (9.0-12.0) Seconds INR 1.0 (0.9-1.1) APTT 25.6 (21.0-31.0) Seconds PTT Ratio 0.9 POC Sodium (135-144) mEq/L Sodium 142 (136-145) mmol/L POC Potassium (3.3-5.0) mEq/L Potassium 3.9 (3.5-5.1) mmol/L POC Chloride (101-112) mEq/L Chloride 102 (98-107) mmol/L Carbon Dioxide 33 H (21-32) mmol/L POC Total CO2 (24-31) mEq/l Anion Gap 8.0 (3-11) POC Anion Gap (16-25) mmol/L POC BUN (7-18) mg/dl BUN 22 H (7-18) mg/dl Creatinine 1.09 (0.6-1.2) mg/dl POC Creatinine (0.6-1.3) mg/dl Est Cr Clr Drug Dosing 28.3 ml/min Est GFR ( Amer) 52.5 Est GFR (Non-Af Amer) 45.3 BUN/Creatinine Ratio 20.3 H (10-20) Glucose 93 (70-99) mg/dl POC Glucose (other) (70-99) mg/dl POC Lactic Acid Galen (0.90-1.70) mmol/L Calcium 10.0 (8.5-10.1) mg/dl POC Ioniz Calcium Kd (1.12-1.32) mmol/l Total Bilirubin 0.5 (0.2-1) mg/dl AST 28 (15-37) U/L ALT 15 (12-78) U/L Alkaline Phosphatase 196 H (45-117) U/L Troponin I < 0.015 (0-0.045) ng/ml Total Protein 8.2 (6.4-8.2) gm/dl Albumin 3.3 L (3.4-5.0) gm/dl Globulin 4.9 H (2.5-4.0) gm/dl Albumin/Globulin Ratio 0.7 L (0.9-2) Lipase 168 (73-393) U/L 10/15/18 10/15/18 Range/Units 18:54 19:00 WBC (4.8-10.8) K/uL RBC (4.2-5.4) M/uL Hgb (12.0-16.0) g/dL POC Hgb 15.3 (12.0-16.0) g/dl Hct (37-47) % POC Hct 45 (37-47) % MCV (80-100) fL MCH (25-34) pg MCHC (32-36) g/dL RDW Std Deviation (36.4-46.3) fL RDW Coeff of Lenard (11.5-14.5) % Plt Count (130-400) K/uL MPV (7.4-10.4) fL Immature Gran % (Auto) % Neut % (Auto) % Lymph % (Auto) % Hoke % (Auto) % Eos % (Auto) % Baso % (Auto) % Immature Gran # (Auto) (0.00-0.02) K/uL Neut # (Auto) (1.4-6.5) K/uL Lymph # (Auto) (1.2-3.4) K/uL Hoke # (Auto) (0.11-0.59) K/uL Eos # (Auto) (0-0.5) K/uL Baso # (Auto) (0-0.2) K/uL PT (9.0-12.0) Seconds INR (0.9-1.1) APTT (21.0-31.0) Seconds PTT Ratio POC Sodium 142 (135-144) mEq/L Sodium (136-145) mmol/L POC Potassium 4.0 (3.3-5.0) mEq/L Potassium (3.5-5.1) mmol/L POC Chloride 98 L (101-112) mEq/L Chloride (98-107) mmol/L Carbon Dioxide (21-32) mmol/L POC Total CO2 32 H (24-31) mEq/l Anion Gap (3-11) POC Anion Gap 16.0 (16-25) mmol/L POC BUN 24 H (7-18) mg/dl BUN (7-18) mg/dl Creatinine (0.6-1.2) mg/dl POC Creatinine 1.1 (0.6-1.3) mg/dl Est Cr Clr Drug Dosing ml/min Est GFR ( Amer) Est GFR (Non-Af Amer) BUN/Creatinine Ratio (10-20) Glucose (70-99) mg/dl POC Glucose (other) 98 (70-99) mg/dl POC Lactic Acid Galen 1.01 (0.90-1.70) mmol/L Calcium (8.5-10.1) mg/dl POC Ioniz Calcium Kd 1.12 (1.12-1.32) mmol/l Total Bilirubin (0.2-1) mg/dl AST (15-37) U/L ALT (12-78) U/L Alkaline Phosphatase (45-117) U/L Troponin I (0-0.045) ng/ml Total Protein (6.4-8.2) gm/dl Albumin (3.4-5.0) gm/dl Globulin (2.5-4.0) gm/dl Albumin/Globulin Ratio (0.9-2) Lipase (73-393) U/L Imaging Data Radiologist's Impression: Radiology results as stated below per my review and the radiologist's interpretation: XR chest 1V portable CLINICAL HISTORY: 87 years-old Female presenting with abd pain. TECHNIQUE: Portable upright AP view of the chest was obtained. COMPARISON: 05/10/[address] from 04/29/2017. FINDINGS: Atherosclerosis of the aortic arch. Cardiac silhouette enlarged. Lungs are hyperinflated. Paramediastinal opacity in the region of the right lung base. No pleural effusion or pneumothorax. Osteopenia suspected. Upper abdomen normal. IMPRESSION: 1. Right paramediastinal lung base infiltrate concerning for pneumonia. Vascular shadows do not completely account for this appearance. PA and lateral views to be considered for better assessment. 2. Cardiomegaly. 3. Suspected underlying emphysema. Electronically signed by: Ahsan Ponce M.D. 10/15/2018 6:[address] angio abdomen pelvis w con CLINICAL HISTORY: 87 years-old Female presenting with generalized abdominal pain, GI bleeding. TECHNIQUE: Multidetector CT angiography of the abdomen and pelvis was performed after the administration of intravenous contrast. 3-D volumetric and/or maximum intensity projection (MIP) images were subsequently reconstructed for review. IV contrast: 120 mL of Optiray 320. One or more dose lowering techniques were used consistent with the principles of ALARA (as low as reasonably achievable), including automatic exposure control, mA or kV adjustment to individual patient size, and/or use of iterative reconstruction. Stenosis measurements were based on NASCET-like criteria (distal lumen diameter as the denominator for stenosis measurement). COMPARISON: Noncontrast CT from 2014. CT DOSE (mGy.cm): The estimated cumulative dose is 263.16 mGy.cm. 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 Vasculature: Atherosclerosis of the abdominal aorta, which demonstrates mild luminal irregularity. No aneurysmal dilatation. 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 The stenotic proximal lumen measures less than 2 mm versus the post stenotic dilatation segment measuring 6 mm. Mild atherosclerosis of the origin of the superior mesenteric artery, which is widely patent. Inferior mesenteric artery patent. Bilateral common, internal, Renal iliac arteries demonstrate atherosclerotic luminal irregularity without significant stenosis. Bilateral common femoral arteries narrowing caliber measuring 3.9 mm on the right and 3.9 mm on the left. Overlying surgical clips and postsurgical change evident. Occlusion of the right superficial femoral artery with associated postsurgical change. The deep femoral artery on the right is patent. Both superficial and deep femoral arteries on the left are patent. Bilateral renal arteries patent. Remaining abdomen and pelvis: Lung bases: Normal heart size. No pericardial or pleural effusion. Paramediastinal atelectasis of the right middle lobe. Minimal dependent atelectasis also evident. Liver: Normal morphology. No focal lesion allowing for the early arterial phase of contrast. Biliary: Mild biliary ductal prominence likely a reservoir effect in the post cholecystectomy state. Gallbladder surgically absent. Pancreas: Mild parenchymal atrophy. Spleen: Normal. Adrenal glands: Normal. Kidneys and ureters: Cortical thinning bilaterally. Exophytic indeterminant density lesion at the upper pole the left kidney, likely complicated cyst. No nephrolithiasis or hydronephrosis. Bladder: The configuration of the bladder suggests pelvic ligamentous laxity. Bladder otherwise normal. Pelvic organs: Right ovary not visualized. Left ovary more prominent than expected for the patient's postmenopausal status. Degenerated fibroids evident in the uterus. Bowel: Diverticulosis of the distal sigmoid colon without wall thickening or pericolonic inflammatory change. 2 additional diverticula noted elsewhere in the sigmoid and descending colon. Focal wall thickening of the mid to distal transverse colon (series 3 image 274). This length of abnormal colon measures approximately 8 cm. The remainder of the colon is normal. The appendix is not well visualized. No bowel obstruction. Peritoneal cavity: No free fluid or intraperitoneal gas. Lymph nodes: No enlarged lymph nodes in the abdomen or pelvis. Abdominal wall: Postsurgical changes in the bilateral inguinal regions as mentioned. Musculoskeletal: Degenerative changes of the spine. IMPRESSION: 1. No evidence of aneurysm, focal vessel occlusion, or dissection. 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 This may be hemodynamically significant. Duplex Doppler examination could be considered for functional assessment. 2. Focal wall thickening of the mid to distal transverse colon along a length of approximately 8 cm. The distribution raises concern for ischemia. Given the apparent patency of macroscopic vessels, nonocclusive mesenteric ischemia is not excluded. 3. Diverticulosis coli. No evidence of diverticulitis. 4. Abnormal prominence of the left ovary. This is unexpected in a postmenopausal female. Nonurgent pelvic ultrasound to be considered. The report will be called/faxed according to standard departmental protocol. Electronically signed by: Ahsan Ponce M.D. 10/15/2018 7:45 PM XR chest 1V portable CLINICAL HISTORY: 87 years-old Female presenting with sob. TECHNIQUE: Portable upright AP view of the chest was obtained. COMPARISON: 10/15/2018 at 6:48 PM. FINDINGS: Atherosclerosis of the aortic arch. Cardiac silhouette enlarged. Persistent right paramediastinal basilar opacity. Trace right pleural effusion may be present. No pneumothorax. Lungs are overall hyperinflated. Osteopenia. Degenerative changes of the spine. Upper abdomen normal. IMPRESSION: 1. Persistent right paramediastinal basilar infiltrate concerning for pneumonia. This should be followed to resolution. 2. Trace right pleural effusion. 3. Cardiomegaly. 4. Underlying emphysema suspected. Electronically signed by: Ahsan Ponce M.D. 10/15/2018 8:52 PM ECG Data Attestation: I personally reviewed and interpreted this ECG as follows: Indication: abdominal pain Rate (beats per minute): 67 Rhythm: sinus rhythm Findings: + ST depression (Inferior and Lateral); no ectopy Comparison ECG Date: from (05/01/17) Change: no significant change Blood Pressure Blood Pressure Findings: Elevated blood pressure Blood Pressure Disposition: further management by hospitalist MDM Narrative The patient is an 87-year-old female who presented to the emergency department for an evaluation of rectal bleeding. The patient had abdominal pain but her exam was not consistent with an acute surgical abdomen. The patient has significant peripheral vascular disease. I was concerned this could represent intestinal ischemia given the patient's rectal bleeding. I discussed the patient's laboratory and radiographic studies with her and her family members. She was treated with IV fluids as well as IV pain medication. She was significantly improved on subsequent reevaluation. She did develop chest tightness and difficulty breathing after she was started on IV Zosyn. She states that she is not allergic to penicillins however it is possible this is an allergic reaction. She was treated with a DuoNeb as well as Zofran. She was also placed on BiPAP. She was significantly improved on subsequent reevaluatio n. I discussed patient's laboratory and radiographic studies with the on-call [facility] hospitalist. They have agreed to evaluate the patient in the emergency department for further management and disposition. I also discussed this case with the on-call vascular surgeon. Impression & Plan Respiratory distress, Respiratory failure, Intestinal ischemia Discharge Plan Visit Data Chief Complaint: Abdominal Pain Stated Complaint: AB PAIN ED Provider: Josh Elise Discharge Problem: Respiratory distress, Respiratory failure, Intestinal ischemia Patient Disposition: Admitted As Inpatient Forms Stand Alone Forms: My [facility] Prescriptions Prescriptions: No Action anastrozole 1 mg tablet 1 mg PO QPM RF: 0 aspirin 81 mg Tablet,Delayed Release (Dr/Ec) 81 mg PO QPM RF: 0 clonidine HCl 0.2 mg tablet 0.2 mg PO BID RF: 0 metoprolol tartrate 50 mg tablet 75 mg PO Q12H RF: 0 furosemide 20 mg tablet 20 mg PO QAM RF: 0 gabapentin 100 mg Capsule 200 mg PO BID RF: 0 gabapentin 100 mg Capsule 300 mg PO HS RF: 0 losartan 100 mg tablet 100 mg PO QAM RF: 0 Restasis 0.05 % dropperette 1 drp OPB Q12H RF: 0 Referrals Referrals: Ahsan James MD [Primary Care Provider] - Discharge Problem: Respiratory failure Qualifiers: Chronicity: unspecified Respiratory failure complication: unspecified whether with hypoxia or hypercapnia Qualified Code(s): J96.90 - Respiratory failure, unspecified, unspecified whether with hypoxia or hypercapnia The scribe's documentation has been prepared under my direction and personally reviewed by me in its entirety. I confirm that the note above accurately reflects all work, treatment, procedures, and medical decision making performed by me.
[2018-10-15 18:55] LABS: Basophils # (auto) 0.03 K/uL (0-0.2); Basophils % (auto) 0.2 %; Eosinophils # (auto) 0.12 K/uL (0-0.5); Eosinophils % (auto) 0.9 %; Hematocrit (blood only) 43.2 % (37-47); Hemoglobin 14.5 g/dL (12.0-16.0); Immature Granulocytes # (auto) 0.03 K/uL (0.00-0.02); Immature Granulocytes % (auto) 0.2 %; Lymphocytes # (auto) 1.66 K/uL (1.2-3.4); Lymphocytes % (auto) 12.4 %; Mean Corpuscular Hgb Conc 33.6 g/dL (32-36); Mean Corpuscular Volume 89.4 fL (80-100); Mean Platelet Volume 10.3 fL (7.4-10.4); Monocytes # (auto) 0.61 K/uL (0.11-0.59); Monocytes % (auto) 4.6 %; Neutrophils % (auto) 81.7 %; Platelet Count 261 K/uL (130-400); RDW Coefficient of Variation 13.2 % (11.5-14.5); RDW Standard Deviation 43.6 fL (36.4-46.3); Red Blood Count 4.83 M/uL (4.2-5.4); White Blood Count 13.35 K/uL (4.8-10.8)
[2018-10-15] MEDS: fentaNYL citrate 100 MCG/2 ML VIAL IV PRN ×2 (18:57→20:56)
--- NOTE | 2018-10-15 19:00 | XRay Report ---
XR chest 1V portable CLINICAL HISTORY: 87 years-old Female presenting with abd pain. TECHNIQUE: Portable upright AP view of the chest was obtained. COMPARISON: 05/10/[address] from 04/29/2017. FINDINGS: Atherosclerosis of the aortic arch. Cardiac silhouette enlarged. Lungs are hyperinflated. Paramediast inal opacity in the region of the right lung base. No pleural effusion or pneumothorax. Osteopenia beard spected. Upper abdomen normal. IMPRESSION: 1. Right paramediastinal lung base infiltrate concerning for pneumonia. Vascular shadows do not comp letely account for this appearance. PA and lateral views to be considered for better assessment. 2. Cardiomegaly. 3. Suspected underlying emphysema. Electronically signed by: Ahsan Ponce M.D. 10/15/2018 6:59 PM
[2018-10-15 19:11] LABS: Partial Thromboplastin Ratio 0.9; Partial Thromboplastin Time 25.6 Seconds (21.0-31.0); Prothrombin Time 10.7 Seconds (9.0-12.0)
[2018-10-15 19:12] LABS: iSTAT Creatinine 1.1 mg/dl (0.6-1.3); iSTAT Hemoglobin 15.3 g/dl (12.0-16.0); iSTAT Ionized Calcium 1.12 mmol/l (1.12-1.32)
[2018-10-15 19:13] LABS: Alanine Aminotransferase 15 U/L (12-78); Albumin Level 3.3 gm/dl (3.4-5.0); Aspartate Aminotransferase 28 U/L (15-37); BUN Creatinine Ratio 20.3 (10-20); Blood Urea Nitrogen 22 mg/dl (7-18); Carbon Dioxide 33 mmol/L (21-32); Chloride 102 mmol/L (98-107); Creatinine Clr Calc Pharmacy 28.3 ml/min; Est GFR (African American) 52.5; Est GFR (Non-African American) 45.3; Glucose 93 mg/dl (70-99); Potassium 3.9 mmol/L (3.5-5.1); Sodium 142 mmol/L (136-145)
[2018-10-15 19:18] LABS: Albumin Globulin Ratio 0.7 (0.9-2); Alkaline Phosphatase 196 U/L (45-117); Bilirubin,Total 0.5 mg/dl (0.2-1); Globulin 4.9 gm/dl (2.5-4.0); Total Protein 8.2 gm/dl (6.4-8.2); Troponin I < 0.015 ng/ml (0-0.045)
[2018-10-15] MEDS ORDERED: OPTIRAY 320 125ml IV PRN (19:30)
--- NOTE | 2018-10-15 19:47 | CT Scan Report ---
CT angio abdomen pelvis w con CLINICAL HISTORY: 87 years-old Female presenting with generalized abdominal pain, GI bleeding. TECHNIQUE: Multidetector CT angiography of the abdomen and pelvis was performed after the administrat ion of intravenous contrast. 3-D volumetric and/or maximum intensity projection (MIP) images were sub sequently reconstructed for review. IV contrast: 120 mL of Optiray 320. One or more dose lowering katerina hniques were used consistent with the principles of ALARA (as low as reasonably achievable), includin g automatic exposure control, mA or kV adjustment to individual patient size, and/or use of iterative reconstruction. Stenosis measurements were based on NASCET-like criteria (distal lumen diameter as t he denominator for stenosis measurement). COMPARISON: Noncontrast CT from 2015. CT DOSE (mGy.cm): The estimated cumulative dose is 263.16 mGy.cm. FINDINGS: Regulatory Lead topogram: Unremarkable. Vasculature: Atherosclerosis of the abdominal aorta, which demonstrates mild luminal irregularity. No aneurysmal d ilatation. 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 The stenotic proximal lumen measures less than 2 mm versus the post stenotic di latation segment measuring 6 mm. Mild atherosclerosis of the origin of the superior mesenteric artery , which is widely patent. Inferior mesenteric artery patent. Bilateral common, internal, Renal iliac arteries demonstrate atherosclerotic luminal irregularity without significant stenosis. B ilateral common femoral arteries narrowing caliber measuring 3.9 mm on the right and 3.9 mm on the le ft. Overlying surgical clips and postsurgical change evident. 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 The deep femoral artery on the right is patent. Both superficial and deep femoral arteries on the left are patent. Bilateral renal arteries patent. Remaining abdomen and pelvis: Lung bases: Normal heart size. No pericardial or pleural effusion. Paramediastinal atelectasis of the right middle lobe. Minimal dependent atelectasis also evident. Liver: Normal morphology. No focal lesion allowing for the early arterial phase of contrast. Biliary: Mild biliary ductal prominence likely a reservoir effect in the post cholecystectomy state. Gallbladder surgically absent. Pancreas: Mild parenchymal atrophy. Spleen: Normal. Adrenal glands: Normal. Kidneys and ureters: Cortical thinning bilaterally. Exophytic indeterminant density lesion at the upp er pole the left kidney, likely complicated cyst. No nephrolithiasis or hydronephrosis. Bladder: The configuration of the bladder suggests pelvic ligamentous laxity. Bladder otherwise robby l. Pelvic organs: Right ovary not visualized. Left ovary more prominent than expected for the patient's postmenopausal status. Degenerated fibroids evident in the uterus. Bowel: Diverticulosis of the distal sigmoid colon without wall thickening or pericolonic inflammatory change. 2 additional diverticula noted elsewhere in the sigmoid and descending colon. Focal wall thi ckening of the mid to distal transverse colon (series 3 image 274). This length of abnormal colon veronica sures approximately 8 cm. The remainder of the colon is normal. The appendix is not well visualized. No bowel obstruction. Peritoneal cavity: No free fluid or intraperitoneal gas. Lymph nodes: No enlarged lymph nodes in the abdomen or pelvis. Abdominal wall: Postsurgical changes in the bilateral inguinal regions as mentioned. Musculoskeletal: Degenerative changes of the spine. IMPRESSION: 1. No evidence of aneurysm, focal vessel occlusion, or dissection. 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 This may be hemodynamically signif icant. Duplex Doppler examination could be considered for functional assessment. 2. Focal wall thickening of the mid to distal transverse colon along a length of approximately 8 cm. The distribution raises concern for ischemia. Given the apparent patency of macroscopic vessels, non occlusive mesenteric ischemia is not excluded. 3. Diverticulosis coli. No evidence of diverticulitis. 4. Abnormal prominence of the left ovary. This is unexpected in a postmenopausal female. Nonurgent p elvic ultrasound to be considered. The report will be called/faxed according to standard departmental protocol. Electronically signed by: Ahsan Ponce M.D. 10/15/2018 7:45 PM
[2018-10-15] MEDS ORDERED: SODIUM CHLORIDE 0.9% 500 ML IV ONE (19:54)
[2018-10-15] MEDS ORDERED: PIPERACILLIN/TAZOBACTAM 4.5 GM/120 ML BAG IV ONE (20:02)
[2018-10-15] MEDS ORDERED: PIPERACILL/TAZOBAC CONSULT ACTIVE PRN (20:02)
[2018-10-15] MEDS ORDERED: ALBUT/IPRATROP 3MG/0.5MG NEB 3 ML VIAL ONE (20:31)
--- NOTE | 2018-10-15 20:53 | XRay Report ---
XR chest 1V portable CLINICAL HISTORY: 87 years-old Female presenting with sob. TECHNIQUE: Portable upright AP view of the chest was obtained. COMPARISON: 10/15/2018 at 6:48 PM. FINDINGS: Atherosclerosis of the aortic arch. Cardiac silhouette enlarged. Persistent right paramediastinal bas ilar opacity. Trace right pleural effusion may be present. No pneumothorax. Lungs are overall hyperin flated. Osteopenia. Degenerative changes of the spine. Upper abdomen normal. IMPRESSION: 1. Persistent right paramediastinal basilar infiltrate concerning for pneumonia. This should be foll owed to resolution. 2. Trace right pleural effusion. 3. Cardiomegaly. 4. Underlying emphysema suspected. Electronically signed by: Ahsan Ponce M.D. 10/15/2018 8:52 PM
[2018-10-15] MEDS ORDERED: FUROSEMIDE 40 MG/4 ML VIAL IV STA (20:57)
--- NOTE | 2018-10-15 21:59 | History & Physical Report ---
Date of Service October 15, 2018 Assessment & Plan (1) Acute respiratory failure with hypoxia: Acute respiratory failure with hypoxia/right middle lobe and right lower lobe pneumonia- Continue BiPAP. ABG not performed in ED due to hyperventilation. Follow clinically, and if not doing as well as expected on BiPAP, perform an ABG at that time. Vancomycin, aztreonam and Flagyl IV. Sputum Gram stain and culture. Duonebs every 4 hours while awake and every 2 hours when necessary. 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 Remainder of arterial circulation, including SMA and YURIY are normal on imaging. Therefore makes it less likely to be causing a significant contribution to her epigastric area pain symptoms. This is likely associated with a transverse colitis, but patient also needs to be considered for an EGD due to possible peptic ulcer disease. Place on famotidine 20 mg IV every 12 hours. NPO. Consult gastroenterology Dr. Prashant Guerra. Present on Admission?: Yes (5) Clostridium difficile diarrhea: With history of C. difficile colitis, would be concerned regarding recurrence while on antibiotics for pneumonia. As patient gets changed from BiPAP to nasal cannula, will begin vancomycin 125 mg p.o. 4 times daily as prophylaxis along with Floranex. Present on Admission?: Yes (6) Chronic kidney disease (CKD) stage G3a/A1, moderately decreased glomerular filtration rate (GFR) between 45-59 mL/min/1.73 square meter and albuminuria creatinine ratio less than 30 mg/g: Creatinine is at baseline. Follow serial laboratories. 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 Prompted concerns the abdominal pain might be associated with intestinal ischemia, but imaging studies confirmed no acute contribution of decreased arterial blood supply as cause of her symptoms. Present on Admission?: Yes (8) Colitis: Initial concern regarding ischemic colitis. Blood supply as noted via SMA appears to be widely patent. Check stool studies for C. difficile due to patient's previous history. Empiric vancomycin p.o. as noted above Present on Admission?: Yes (9) Lesion of ovary: Prominent left ovary noted on CT. Concerning in her age group. Order a pelvic ultrasound. Present on Admission?: Yes (10) Breast cancer: History of treatment. Not active at this time. Present on Admission?: Yes (11) Hypertension: N.p.o. for now while on BiPAP and respiratory failure. Hold aspirin, clonidine, furosemide, losartan and metoprolol tartrate. Lopressor 5 mg IV every 4 hours as needed systolic blood pressure greater than 160. Present on Admission?: Yes History of Present Illness Chief Complaint: The patient presents to the ED with complaint of abdominal pain, nausea without vomiting, intermittent shortness of breath, and bright red blood per rectum that began earlier this morning prior to arrival. 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 She also has developed some intermittent shortness of breath, and had an episode while in the ED with desaturation into the upper 70s, that necessitated placement of BiPAP and significant improvement with pulse ox back into the mid 90s. This most recent episode was likely triggered by her underlying pneumonia, with accentuation by needed IV fluids for resuscitation. She was given a DuoNeb nebulizer and Lasix 20 mg IV x1 in ED with improvement in symptoms. Allergies Allergy/AdvReac Type Severity Reaction Status Date / Time Sulfa (Sulfonamide Allergy Intermediate RASH Verified 05/22/18 14:34 Antibiotics) morphine Allergy Unknown see notes Verified 05/22/18 14:34 piperacillin [From Zosyn] AdvReac Intermediate Difficulty Verified 10/15/18 21:34 Breathing tazobactam [From Zosyn] AdvReac Intermediate Difficulty Verified 10/15/18 21:34 Breathing codeine AdvReac Mild ABD CRAMPS Verified 05/22/18 14:34 Home Medications Home Medications Medication Instructions Recorded Confirmed Type anastrozole 1 mg PO QPM 10/15/18 10/15/18 History aspirin 81 mg PO QPM 10/15/18 10/15/18 History clonidine HCl 0.2 mg PO BID 10/15/18 10/15/18 History cyclosporine [Restasis] 1 drp OPB Q12H 10/15/18 10/15/18 History furosemide 20 mg PO QAM 10/15/18 10/15/18 History gabapentin 200 mg PO BID 10/15/18 10/15/18 History gabapentin 300 mg PO HS 10/15/18 10/15/18 History losartan 100 mg PO QAM 10/15/18 10/15/18 History metoprolol tartrate 75 mg PO Q12H 10/15/18 10/15/18 History Past Med/Surg History Medical History Acute kidney injury Breast cancer CKD (chronic kidney disease) Cellulitis Empyema HTN (hypertension) Surgical History S/P appendectomy S/P cholecystectomy Status post lower limb amputation Social History Preferred Language: Filipino Communication Ability: 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 Beliefs That Will Affect Care: None Current Living Situation: Spouse Current Living Situation Comment: villages Other Information That Helps Us Care for You: No Feels Safe at Home: Yes Safety Concerns: Feels Safe At This Time Smoking Status: Never smoker Hx Alcohol Use: Yes Alcohol type: wine Hx Substance Use: No Review of Systems Review of Systems: The patient denies palpitations, cough, lower extremity swelling, sore throat, fevers, chills, sweats, nausea, vomiting, diarrhea , constipation, abdominal pain, pelvic pain, blood in urine or stool, dysuria, urinary frequency or urgency, lightheadedness, dizziness, headache, loss of consciousness, rash, abnormal bruising or bleeding, imbalance, focal weakness, numbness or tingling in arms or legs, generalized arthralgias or myalgias, back or neck pain, or night sweats. The review of systems is otherwise negative other than for that already noted above, and at least 10 systems have been reviewed. Physical Exam Physical Exam: The patient is awake, alert and oriented 3, looks chronically ill, normocephalic and atraumatic, lying in bed and in no acute distress. HEENT--PERRL, EOMI, mucous membranes and oropharynx dry. Neck--supple. No JVD. No bruits. Thyroid normal, trachea midline, no adenopathy. Heart--normal S1 and S2. No murmurs, rubs or gallops. Lungs--crackles in right lung anteriorly and lower lobe posteriorly, left lung overall clear to few trace crackles. Abdomen--normal bowel sounds and soft. Nontender. Nondistended, no hernias or masses, no organomegaly. Extremities--no cyanosis or clubbing. No edema. There are good distal pulses b/l. Dermatologic--normal skin turgor, normal color, no abnormal lymph nodes, no rash. Neurologic--cranial nerves II through XII grossly intact. Rheumatologic--normal range of motion. Psychiatric--normal affect. Results & Data Vital Signs (Past 12 Hours) Vital Signs Temp Pulse Resp BP BP BP Pulse Ox 10/15/18 21:50 89 25 H 100 10/15/18 21:48 88 24 196/71 H 100 10/15/18 21:40 103 H 20 10/15/18 21:30 87 24 100 10/15/18 21:20 90 22 96 10/15/18 21:10 75 19 98 10/15/18 21:01 91 H 20 211/64 H 94 10/15/18 21:00 92 H 19 97 10/15/18 20:50 77 21 91 10/15/18 20:40 100 H 25 H 82 L 10/15/18 20:39 95 H 20 75 L 10/15/18 20:38 98.1 F 97 H 19 144/101 H 73 L 10/15/18 20:30 97 H 30 H 76 L 10/15/18 20:20 78 21 10/15/18 20:10 68 20 10/15/18 20:00 68 21 10/15/18 19:53 68 23 171/55 H 10/15/18 19:50 68 21 10/15/18 19:40 71 24 10/15/18 19:34 86 28 H 10/15/18 19:10 67 20 92 10/15/18 19:00 65 18 94 10/15/18 18:50 71 21 96 10/15/18 18:49 243/101 H 242/88 H 98 10/15/18 18:45 98.2 F 70 20 243/101 H 98 10/15/18 18:44 74 21 99 10/15/18 18:42 71 17 243/101 H 95 10/15/18 18:41 79 21 242/88 H Laboratory Results Laboratory Results WBC 13.35 K/uL (4.8-10.8) H 10/15/18 18:47 RBC 4.83 M/uL (4.2-5.4) 10/15/18 18:47 Hgb 14.5 g/dL (12.0-16.0) 10/15/18 18:47 POC Hgb 15.3 g/dl (12.0-16.0) 10/15/18 19:00 Hct 43.2 % (37-47) 10/15/18 18:47 POC Hct 45 % (37-47) 10/15/18 19:00 MCV 89.4 fL (80-100) 10/15/18 18:47 MCH 30.0 pg (25-34) 10/15/18 18:47 MCHC 33.6 g/dL (32-36) 10/15/18 18:47 RDW Std Deviation 43.6 fL (36.4-46.3) 10/15/18 18:47 RDW Coeff of Lenard 13.2 % (11.5-14.5) 10/15/18 18:47 Plt Count 261 K/uL (130-400) 10/15/18 18:47 MPV 10.3 fL (7.4-10.4) 10/15/18 18:47 Immature Gran % (Auto) 0.2 % 10/15/18 18:47 Neut % (Auto) 81.7 % 10/15/18 18:47 Lymph % (Auto) 12.4 % 10/15/18 18:47 [place] % (Auto) 4.6 % 10/15/18 18:47 Eos % (Auto) 0.9 % 10/15/18 18:47 Baso % (Auto) 0.2 % 10/15/18 18:47 Immature Gran # (Auto) 0.03 K/uL (0.00-0.02) H 10/15/18 18:47 Neut # (Auto) 10.90 K/uL (1.4-6.5) H 10/15/18 18:47 Lymph # (Auto) 1.66 K/uL (1.2-3.4) 10/15/18 18:47 [place] # (Auto) 0.61 K/uL (0.11-0.59) H 10/15/18 18:47 Eos # (Auto) 0.12 K/uL (0-0.5) 10/15/18 18:47 Baso # (Auto) 0.03 K/uL (0-0.2) 10/15/18 18:47 PT 10.7 Seconds (9.0-12.0) 10/15/18 18:47 INR 1.0 (0.9-1.1) 10/15/18 18:47 APTT 25.6 Seconds (21.0-31.0) 10/15/18 18:47 PTT Ratio 0.9 10/15/18 18:47 POC Sodium 142 mEq/L (135-144) 10/15/18 19:00 Sodium 142 mmol/L (136-145) 10/15/18 18:47 POC Potassium 4.0 mEq/L (3.3-5.0) 10/15/18 19:00 Potassium 3.9 mmol/L (3.5-5.1) 10/15/18 18:47 POC Chloride 98 mEq/L (101-112) L 10/15/18 19:00 Chloride 102 mmol/L (98-107) 10/15/18 18:47 Carbon Dioxide 33 mmol/L (21-32) H 10/15/18 18:47 POC Total CO2 32 mEq/l (24-31) H 10/15/18 19:00 Anion Gap 8.0 (3-11) 10/15/18 18:47 POC Anion Gap 16.0 mmol/L (16-25) 10/15/18 19:00 POC BUN 24 mg/dl (7-18) H 10/15/18 19:00 BUN 22 mg/dl (7-18) H 10/15/18 18:47 Creatinine 1.09 mg/dl (0.6-1.2) 10/15/18 18:47 POC Creatinine 1.1 mg/dl (0.6-1.3) 10/15/18 19:00 Est Cr Clr Drug Dosing 28.3 ml/min 10/15/18 18:47 Est GFR ( Amer) 52.5 10/15/18 18:47 Est GFR (Non-Af Amer) 45.3 10/15/18 18:47 BUN/Creatinine Ratio 20.3 (10-20) H 10/15/18 18:47 Glucose 93 mg/dl (70-99) 10/15/18 18:47 POC Glucose (other) 98 mg/dl (70-99) 10/15/18 19:00 POC Lactic Acid Galen 1.01 mmol/L (0.90-1.70) 10/15/18 18:54 Calcium 10.0 mg/dl (8.5-10.1) 10/15/18 18:47 POC Ioniz Calcium Kd 1.12 mmol/l (1.12-1.32) 10/15/18 19:00 Total Bilirubin 0.5 mg/dl (0.2-1) 10/15/18 18:47 AST 28 U/L (15-37) 10/15/18 18:47 ALT 15 U/L (12-78) 10/15/18 18:47 Alkaline Phosphatase 196 U/L (45-117) H 10/15/18 18:47 Troponin I < 0.015 ng/ml (0-0.045) 10/15/18 18:47 Total Protein 8.2 gm/dl (6.4-8.2) 10/15/18 18:47 Albumin 3.3 gm/dl (3.4-5.0) L 10/15/18 18:47 Globulin 4.9 gm/dl (2.5-4.0) H 10/15/18 18:47 Albumin/Globulin Ratio 0.7 (0.9-2) L 10/15/18 18:47 Lipase 168 U/L (73-393) 10/15/18 18:47 Urine Color Yellow 10/15/18 21:45 Urine Appearance Clear (Clear) 10/15/18 21:45 Urine pH 6.5 (4.5-7.5) 10/15/18 21:45 Ur Specific [place] 1.035 (1.000-1.030) H 10/15/18 21:45 Urine Protein Negative (Negative) 10/15/18 21:45 Urine Glucose (UA) Negative (Negative) 10/15/18 21:45 Urine Ketones Negative (Negative) 10/15/18 21:45 Urine Blood 2+ (Negative) H 10/15/18 21:45 Urine Nitrite Negative (Negative) 10/15/18 21:45 Urine Bilirubin Negative (Negative) 10/15/18 21:45 Urine Urobilinogen Negative (Negative) 10/15/18 21:45 Ur Leukocyte Esterase 1+ (Negative) H 10/15/18 21:45 Urine WBC (Auto) 10-30 /hpf (0-5) H 10/15/18 21:45 Urine RBC (Auto) 0-4 /hpf (0-4) 10/15/18 21:45 U Hyaline Cast (Auto) 1-5 /lpf (0-5) 10/15/18 21:45 U Epithel Cells (Auto) 20-30 /lpf (0-5) H 10/15/18 21:45 Urine Bacteria (Auto) Negative (Negative) 10/15/18 21:45 [phone] Report Patient: Ceferino VICK Date: 10/15/18 MR#: [id number]: [address] Acct ID:[id number]: Date: 1930City Zip: [place] [address] Age: 87Location: ED Sex: F Room/Bed: Att Phy: Diagnosis: AB PAIN [facility]: [facility] Fam Phy: Interpreting Phy: Ahsan Ponce MD Admit Phy: Ordering Phy: Josh Elise DO cc: ~ XR chest 1V portable CLINICAL HISTORY: 87 years-old Female presenting with abd pain. TECHNIQUE: Portable upright AP view of the chest was obtained. COMPARISON: 05/10/[address] from 04/29/2017. FINDINGS: Atherosclerosis of the aortic arch. Cardiac silhouette enlarged. Lungs are hyperinflated. Paramediastinal opacity in the region of the right lung base. No pleural effusion or pneumothorax. Osteopenia suspected. Upper abdomen normal. IMPRESSION: 1. Right paramediastinal lung base infiltrate concerning for pneumonia. Vascular shadows do not completely account for this appearance. PA and lateral views to be considered for better assessment. 2. Cardiomegaly. 3. Suspected underlying emphysema. Electronically signed by: Ahsan Ponce M.D. 10/15/2018 6:59 PM Dictated: 10/15/181855 Transcribed: 10/15/181855 [phone] Scan Report Patient: NAVA,Ceferino Date: 10/15/18 MR#: [id number]: [address] Acct ID:[id number]: [facility] 1930[facility] [place] [address] Age: 87Location: ED Sex: F Room/Bed: Att Phy: Diagnosis: AB PAIN Cesia Phy: Ahsan James M.D.Service Date: 10/15/18 Fam Phy: Interpreting Phy: Ahsan Ponce MD Admit Phy: Ordering Phy: Josh Elise, cc: ~ CT angio abdomen pelvis w con CLINICAL HISTORY: 87 years-old Female presenting with generalized abdominal pain, GI bleeding. TECHNIQUE: Multidetector CT angiography of the abdomen and pelvis was performed after the administration of intravenous contrast. 3-D volumetric and/or maximum intensity projection (MIP) images were subsequently reconstructed for review. IV contrast: 120 mL of Optiray 320. One or more dose lowering techniques were used consistent with the principles of ALARA (as low as reasonably achievable), including automatic exposure control, mA or kV adjustment to individual patient size, and/or use of iterative reconstruction. Stenosis measurements were based on NASCET-like criteria (distal lumen diameter as the denominator for stenosis measurement). COMPARISON: Noncontrast CT from 2015. CT DOSE (mGy.cm): The estimated cumulative dose is 263.16 mGy.cm. 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 Vasculature: Atherosclerosis of the abdominal aorta, which demonstrates mild luminal irregularity. No aneurysmal dilatation. 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 The stenotic proximal lumen measures less than 2 mm versus the post stenotic dilatation segment measuring 6 mm. Mild atherosclerosis of the origin of the sup erior mesenteric artery, which is widely patent. Inferior mesenteric artery patent. Bilateral common, internal, Renal iliac arteries demonstrate atherosclerotic luminal irregularity without significant stenosis. Bilateral common femoral arteries narrowing caliber measuring 3.9 mm on the right and 3.9 mm on the left. Overlying surgical clips and postsurgical change evident. Occlusion of the right superficial femoral artery with associated postsurgical change. The deep femoral artery on the right is patent. Both superficial and deep femoral arteries on the left are patent. Bilateral renal arteries patent. Remaining abdomen and pelvis: Lung bases: Normal heart size. No pericardial or pleural effusion. Paramediastinal atelectasis of the right middle lobe. Minimal dependent atelectasis also evident. Liver: Normal morphology. No focal lesion allowing for the early arterial phase of contrast. Biliary: Mild biliary ductal prominence likely a reservoir effect in the post cholecystectomy state. Gallbladder surgically absent. Pancreas: Mild parenchymal atrophy. Spleen: Normal. Adrenal glands: Normal. Kidneys and ureters: Cortical thinning bilaterally. Exophytic indeterminant density lesion at the upper pole the left kidney, likely complicated cyst. No nephrolithiasis or hydronephrosis. Bladder: The configuration of the bladder suggests pelvic ligamentous laxity. Bladder otherwise normal. Pelvic organs: Right ovary not visualized. Left ovary more prominent than expected for the patient's postmenopausal status. Degenerated fibroids evident in the uterus. Bowel: Diverticulosis of the distal sigmoid colon without wall thickening or pericolonic inflammatory change. 2 additional diverticula noted elsewhere in the sigmoid and descending colon. Focal wall thickening of the mid to distal transverse colon (series 3 image 274). This length of abnormal colon measures approximately 8 cm. The remainder of the colon is normal. The appendix is not well visualized. No bowel obstruction. Peritoneal cavity: No free fluid or intraperitoneal gas. Lymph nodes: No enlarged lymph nodes in the abdomen or pelvis. Abdominal wall: Postsurgical changes in the bilateral inguinal regions as mentioned. Musculoskeletal: Degenerative changes of the spine. IMPRESSION: 1. No evidence of aneurysm, focal vessel occlusion, or dissection. 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 This may be hemodynamically significant. Duplex Doppler examination could be considered for functional assessment. 2. Focal wall thickening of the mid to distal transverse colon along a length of approximately 8 cm. The distribution raises concern for ischemia. Given the apparent patency of macroscopic vessels, nonocclusive mesenteric ischemia is not excluded. 3. Diverticulosis coli. No evidence of diverticulitis. 4. Abnormal prominence of the left ovary. This is unexpected in a postmenopausal female. Nonurgent pelvic ultrasound to be considered. The report will be called/faxed according to standard departmental protocol. Electronically signed by: Ahsan Ponce M.D. 10/15/2018 7:45 PM Dictated: 10/15/181935 Transcribed: 10/15/181935 [facility] [place] [phone] XRay Report Patient: Ceferino VICK Date: 10/15/18 MR#: [id number]: [address] Acct ID:[id number]: Date: [address] Zip: [place] [address] Age: 87Location: ED Sex: F Room/Bed: Att Phy: Diagnosis: AB PAIN Cesia Phy: Ahsan James M.D.Service Date: 10/15/18 Fam Phy: Interpreting Phy: Ahsan Ponce MD Admit Phy: Ordering Phy: Josh Elise DO cc: ~ XR chest 1V portable CLINICAL HISTORY: 87 years-old Female presenting with sob. TECHNIQUE: Portable upright AP view of the chest was obtained. COMPARISON: 10/15/2018 at 6:48 PM. FINDINGS: Atherosclerosis of the aortic arch. Cardiac silhouette enlarged. Persistent right paramediastinal basilar opacity. Trace right pleural effusion may be present. No pneumothorax. Lungs are overall hyperinflated. Osteopenia. Degenerative changes of the spine. Upper abdomen normal. IMPRESSION: 1. Persistent right paramediastinal basilar infiltrate concerning for pneumonia. This should be followed to resolution. 2. Trace right pleural effusion. 3. Cardiomegaly. 4. Underlying emphysema suspected. Electronically signed by: Ahsan Ponce M.D. 10/15/2018 8:52 PM Dictated: 10/15/182049 Transcribed: 10/15/182049 Code Status & VTE Plan Code Status Conditional code VTE Prophylaxis Plan VTE Prophylaxis will be ordered: Yes
[2018-10-15 22:05] LABS: Appearance Urine Clear (Clear); Bacteria Urine Automated Negative (Negative); Bilirubin Urine Negative (Negative); Blood Urine 2+ (Negative); Color Urine Yellow; Epithelial Cell Urine Auto 20-30 /lpf (0-5); Glucose Urine UA Negative (Negative); Ketones Urine Negative (Negative); Leukocyte Esterase Urine 1+ (Negative); Nitrite Urine Negative (Negative); Protein Urine Negative (Negative); RBC Urine Automated 0-4 /hpf (0-4); Specific Gravity Urine 1.035 (1.000-1.030); Urobilinogen Urine Negative (Negative); pH Urine 6.5 (4.5-7.5)
[2018-10-15] MEDS ORDERED: VANCOMYCIN CONSULT ACTIVE PRN (22:45)
[2018-10-15] MEDS ORDERED: AZTREONAM 1,000 MG in DEXTROSE 5% 100 ML IV SCH (22:45)
[2018-10-15] MEDS ORDERED: VANCOMYCIN HCL 1,000 MG in SODIUM CHLORIDE 0.9% 250 ML IV SCH (23:00)
[2018-10-15] MEDS ORDERED: AZTREONAM CONSULT ACTIVE PRN (23:23)
[2018-10-16] MEDS: RESTASIS~ORDER AWAITING ACTION SCH ×2 (00:04→08:11)
[2018-10-16] MEDS ORDERED: AZTREONAM 2,000 MG in DEXTROSE 5% 100 ML IV SCH (02:00)
[2018-10-16] MEDS: metroNIDAZOLE 500 MG/100 ML BAG IV SCH ×2 (02:33→09:51)
[2018-10-16] MEDS: FAMOTIDINE 20 MG in SYRINGE 3 ML IV SCH ×2 (02:33→14:04)
[2018-10-16] MEDS: METOPROLOL TARTRATE 1 MG/ML VIAL IV PRN (02:37)
[2018-10-16 06:52] LABS: Basophils # (auto) 0.03 K/uL (0-0.2); Basophils % (auto) 0.2 %; Hematocrit (blood only) 41.8 % (37-47); Hemoglobin 13.9 g/dL (12.0-16.0); Immature Granulocytes # (auto) 0.04 K/uL (0.00-0.02); Immature Granulocytes % (auto) 0.3 %; Lymphocytes # (auto) 1.26 K/uL (1.2-3.4); Lymphocytes % (auto) 8.7 %; Mean Corpuscular Hgb Conc 33.3 g/dL (32-36); Mean Corpuscular Volume 89.9 fL (80-100); Mean Platelet Volume 10.2 fL (7.4-10.4); Monocytes # (auto) 0.65 K/uL (0.11-0.59); Monocytes % (auto) 4.5 %; Neutrophils # (auto) 12.44 K/uL (1.4-6.5); Neutrophils % (auto) 86.3 %; Platelet Count 239 K/uL (130-400); RDW Coefficient of Variation 13.6 % (11.5-14.5); RDW Standard Deviation 44.2 fL (36.4-46.3); Red Blood Count 4.65 M/uL (4.2-5.4); White Blood Count 14.42 K/uL (4.8-10.8)
[2018-10-16] MEDS: ALBUT/IPRATROP 3MG/0.5MG NEB 3 ML VIAL NEB SCH ×4 (07:00→18:57)
[2018-10-16 07:03] LABS: INR 1.1 (0.9-1.1); Partial Thromboplastin Ratio 0.9; Partial Thromboplastin Time 24.9 Seconds (21.0-31.0); Prothrombin Time 11.4 Seconds (9.0-12.0)
[2018-10-16 07:38] LABS: Albumin Globulin Ratio 0.7 (0.9-2); Albumin Level 2.7 gm/dl (3.4-5.0); BUN Creatinine Ratio 17.5 (10-20); Bilirubin,Total 0.6 mg/dl (0.2-1); Calcium 8.5 mg/dl (8.5-10.1); Creatinine Clr Calc Pharmacy 26.7 ml/min; Est GFR (African American) 49.7; Est GFR (Non-African American) 42.9; Potassium 3.8 mmol/L (3.5-5.1); Total Protein 6.7 gm/dl (6.4-8.2)
--- NOTE | 2018-10-16 08:05 | Ultrasound Report ---
ULTRASOUND OF THE PELVIS CLINICAL HISTORY: Left ovarian cystic lesion seen by CT. COMPARISON STUDY: Pelvic CT dated 10/15/2018. TECHNIQUE: Real-time, grayscale, and color flow sonography of the pelvis is performed transabdominall y. Images are reviewed in the transverse and longitudinal planes. FINDINGS: Uterus: The uterus is atrophic and heterogeneous in echotexture, measuring 4.1 x 1.6 x 2.6 cm. There are calcified fibroids. Endometrium: The endometrium is atrophic and was not well visualized Ovaries: The right ovary was not visualized. The left ovary measures 3.4 x 3.4 x 3.4 cm. A simple ayde earing cystic lesion in the left ovary measures up to 3.2 cm. Normal Doppler waveforms are shown with in the left ovary. Pelvis: There is no free fluid in the cul-de-sac. No concerning adnexal lesion is seen. IMPRESSION: 1. There is a 3.2 cm simple appearing cystic lesion identified in the left ovary, and this correspond s to the lesion seen by CT. No solid components are identified and this is of low suspicion. A precau tionary 6 month follow-up examination is recommended. 2. The uterus is atrophic and heterogeneous. 3. The right ovary was not visualized. Electronically signed by: Jamil Linda M.D. 10/16/2018 8:04 AM
[2018-10-16] MEDS: AZTREONAM 1,000 MG in DEXTROSE 5% 100 ML IV SCH ×2 (08:10→16:48)
[2018-10-16] MEDS: HEPARIN SOD 5,000 UNIT/0.5 ML VIAL SQ SCH ×2 (08:11→21:38)
[2018-10-16] MEDS: ACETAMINOPHEN 1000 MG/100 ML IV IV PRN ×2 (09:17→19:40)
[2018-10-16] MEDS ORDERED: HYDROmorphone INJ 0.5 MG/0.5 ML SYR IV STA (09:42)
[2018-10-16] MEDS: ONDANSETRON INJ 2 MG/ML 2 ML VIAL IV PRN ×2 (09:52→18:20)
--- NOTE | 2018-10-16 10:21 | Pharmacy Report ---
Pharmacy Abx Initial Consult - Date of Service October 16, 2018 - Pharmacy Dosing Scope Date of Consult: 10/16/18 Consultation requested by: Dr. Rice Pharmacy is consulted to initiate Vancomycin IV dosing therapy, order appropriate labs and adjust drug dose/frequency. - Subjective The patient is a 87 year old F admitted on 10/15/18 21:30. - Objective Height: 5 ft 4 in Weight: 49.5 kg Vital Signs (Past 12hrs): Vital Signs Temp Pulse Pulse Pulse Resp BP BP 10/16/18 07:14 37.0 C 89 20 156/69 H 10/16/18 07:00 85 16 10/16/18 04:00 160/74 H 10/16/18 03:43 72 18 10/16/18 02:40 36.8 C 74 19 188/73 H 10/16/18 02:37 77 188/73 H 10/16/18 02:22 73 16 10/16/18 01:20 71 10/16/18 00:30 158/90 H 10/15/18 23:14 74 18 10/15/18 23:04 37.1 C 72 19 185/64 H 10/15/18 22:48 36.5 C 79 16 10/15/18 22:45 BP Pulse Ox Pulse Ox 10/16/18 07:14 98 10/16/18 07:00 95 10/16/18 04:00 10/16/18 03:43 98 10/16/18 02:40 100 10/16/18 02:37 10/16/18 02:22 100 10/16/18 01:20 10/16/18 00:30 10/15/18 23:14 100 10/15/18 23:04 100 10/15/18 22:48 191/67 H 100 10/15/18 22:45 100 Lab Results (24hrs): Laboratory Tests (24 Hours) 10/16/18 10/16/18 10/15/18 06:40 06:40 18:47 WBC 14.42 H Neut # (Auto) 12.44 H Creatinine 1.14 1.09 Est Cr Clr Drug Dosing 26.7 28.3 10/15/18 18:47 WBC 13.35 H Neut # (Auto) 10.90 H Creatinine Est Cr Clr Drug Dosing Micro Results: 10/15/18 21:45 Urine Culture - Pending Urine,Clean Catch - Risk Factors for Resistance * Resident in a fdc or extended-care facility - Assessment & Plan Assessment * 87 year old F initiated on Vanco + Azactam + Flagyl for pulmonary indication (penicillin allergy) acute respiratory failure/right lower lobe PNA * Pt with Right AKA which will alter vancomycin PK- will adjust dosing accordingly * Will order Nasal MRSA screen to assist in abx deescalation Plan Vancomycin + Flagyl + Azactam for treatment of PNA Vancomycin IV * Estimated PK Parameters: Vd 0.65 L/kg, Segun 0.028 hr-1, t1/2 25 hr * Loading dose: 1,000 mg (20 mg/kg) * Maintenance dose: 750 mg IV (15 mg/kg) every 24 hours * Goal trough level for Pulmonary : 15 to 20 mcg/mL * Trough level ordered for 10/18/18 @ 1730 (prior to 3rd maintenance dose) Azactam * 2,000mg IV x 1 dose then 1,000mg IV Q8hrs for CrCl <30 ml/min Metronidazole * 500mg IV Q8hrs * No dose adjusted needed Pharmacy will continue to follow and will adjust dose/frequency as necessary. Thank you.
--- NOTE | 2018-10-16 11:37 | Gastrointestinal Consultation ---
Date of Consultation October 16, 2018 Assessment & Plan (1) Colitis: 87 year old female who presented though the ED w/ abdominal cramping, diarrhea x 2 episodes following by an episode of rectal bleeding admitted w/ suspected ischemic colitis and right lower lobe pneumonia. She has history of b oth IBS-D and c.diff colitis - GI ok for clear liquids - No current plan for endoscopic intervention - Pt notes she would not like any invasive testing done unless emergency indicated - Recommend to check a stool for c.diff and a stool culture - Would continue IVF maintenance hydration - Would try to limit any unnecessary ABX given history of c.diff and ABX associated diarrhea - Consider mesentery duplex, vascular surgery evaluation - Anti-emetics - Analgesia PRN - PO PPI daily - Trend H&H - Monitor and document all GI output - Transfuse HGB < 8 per primary service Will follow. Thank you for allowing us to participate in the care of this patient. Please call with any acute changes, questions or concerns. Please see addendum below with additional recommendation from my supervising physician. Attg add: I interviewed and examined pt, reviewed chart and labs and imaging. Pt with pneumonia, abdominal pain, cramping. 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 Agree with abx, diet as tolerated. Would not pursue further diagnostic testing or intervention per pt request. Please call with questions, will sign off. Present on Admission?: Yes (2) Respiratory distress: (3) Respiratory failure: History of Present Illness Reason for Consultation: colitis, epigastric pain Requesting Physician: Trent Attending Physician: Sunny Newman, DO History of Present Illness 87 year old female with history of basal cell CA, GERD, colonic polyps, IBS-D, peripheral vascular disease who presented through the ED for evaluation of abdominal cramping, diarrhea - GI asked to evaluate. Pt was seen and evaluated, chart reviewed. Family at bedside. Discussed w/ primary service. Notes she was in her typical state of health from a GI standpoint up until about 48 hours ago. No sick contacts. No raw foods. Developed generalized abd cramping. Intermittent. Not associated w/ PO. Accompanied by mild nausea, no vomiting and loose stools. Suggests she had two episodes of loose, brown stools w/ severe cramping followed by a BM that was mixed with BRB. No melena. No coffee ground emesis or hematemesis. In the ED she reported SOB w/ desats in 70s, that necessitated placement of BiPAP and significant improvement with pulse ox back into the mid 90. This AM she notes moderate improvement of her symptoms, about 40% improved. Abd pain is less often, less severe when occurs. No BM since admission. She was started on IVF, IV ABX through the ED. 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 This should be followed to resolution.Trace right pleural effusion. CTA 2019: No evidence of aneurysm, focal vessel occlusion, or dissection. 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 This may be hemodynamically significant. Duplex Doppler examination could be considered for functional assessment. Focal wall thickening of the mid to distal transverse colon along a length of approximately 8 cm. The distribution raises concern for ischemia. Given the apparent patency of macroscopic vessels, nonocclusive mesenteric ischemia is not excl uded.Diverticulosis coli. No evidence of diverticulitis. Colonoscopy 12/18/10: Internal and external hemorrhoids, mild descending colon diverticulosis. Rec surveillance (for hx of polyps) in 5 yrs. EUS on 11/17/09: no pathology in the pancreas, common bile duct or left lobe of the liver. EGD 12/05/2007 Bx: chronic, focal active gastritis Colonoscopy 12/16/2007 a 5mm polyp in the transverse colon, diverticulosis sigmoid colon and descending colon, Bx: tubular adenoma. Recommended repeat colonoscopy in 3 years. Abdominal mesenteric duplex US: Increased velocities of the distal celiac and distal superior mesenteric arteries. 70 - 99% stenosis of the distal celiac and distal superior mesenteric arteries Allergies Allergy/AdvReac Type Severity Reaction Status Date / Time Sulfa (Sulfonamide Allergy Intermediate RASH Verified 05/22/18 14:34 Antibiotics) morphine Allergy Unknown see notes Verified 05/22/18 14:34 piperacillin [From Zosyn] AdvReac Intermediate Difficulty Verified 10/15/18 21:34 Breathing tazobactam [From Zosyn] AdvReac Intermediate Difficulty Verified 10/15/18 21:34 Breathing codeine AdvReac Mild ABD CRAMPS Verified 05/22/18 14:34 Home Medications Home Medications Medication Instructions Recorded Confirmed Type anastrozole 1 mg PO QPM 10/15/18 10/15/18 History aspirin 81 mg PO QPM 10/15/18 10/15/18 History clonidine HCl 0.2 mg PO BID 10/15/18 10/15/18 History cyclosporine [Restasis] 1 drp OPB Q12H 10/15/18 10/15/18 History furosemide 20 mg PO QAM 10/15/18 10/15/18 History gabapentin 200 mg PO BID 10/15/18 10/15/18 History gabapentin 300 mg PO HS 10/15/18 10/15/18 History losartan 100 mg PO QAM 10/15/18 10/15/18 History metoprolol tartrate 75 mg PO Q12H 10/15/18 10/15/18 History Patient History Medical History Acute kidney injury Breast cancer CKD (chronic kidney disease) Cellulitis Empyema HTN (hypertension) Surgical History S/P appendectomy S/P cholecystectomy Status post lower limb amputation Social History Preferred Language: Frisian Communication Ability: Effective Reconciling Clerk Required: No Beliefs That Will Affect Care: None Current Living Situation: Spouse Current Living Situation Comment: [place] Other Information That Helps Us Care for You: No Feels Safe at Home: Yes Safety Concerns: Feels Safe At This Time Smoking Status: Never smoker Hx Alcohol Use: Yes Alcohol type: wine Hx Substance Use: No Review of Systems Constitutional: no fever, no chills, no fatigue and no weakness Respiratory: + dyspnea (yesterday, today resolved); no cough, no pain on inspiration and no wheezing Cardiovascular: no chest pain, no radiating jaw, neck or arm pain, no dyspnea on exertion and no palpitations Gastrointestinal: + abdominal pain, + cramping, + diarrhea/loose stools (yesterday, no BM today) and + blood in stools (yesterday, no BM today); no bloating, no nausea, no vomiting, no coffee ground emesis, no hematemesis, no change in stools, no fecal incontinence and no melena Physical Exam Constitutional: well developed, well nourished and average body habitus; no acute distress and not ill appearing Respiratory: normal respiratory effort, lungs clear to auscultation Cardiovascular: Rate/Rhythm: regular rate and regular rhythm Heart Sounds: no click, no murmur and no cardiac rub Gastrointestinal (Abdomen): Inspection/Auscultation: abdomen normal to inspection and normal bowel sounds; abdomen not distended Percussion/Palpation: abdomen soft; abdomen nontender, no guarding, abdomen not rigid, no abdominal mass and no ascites Skin: no rashes, warm and dry no jaundice Results & Data Vital Signs (Past 12 Hours) Vital Signs Temp Pulse Pulse Resp BP BP Pulse Ox 10/16/18 11:15 96 H 20 98 10/16/18 08:00 72 10/16/18 07:14 37.0 C 89 20 156/69 H 98 10/16/18 07:00 85 16 95 10/16/18 04:00 160/74 H 10/16/18 03:43 72 18 98 10/16/18 02:40 36.8 C 74 19 188/73 H 100 10/16/18 02:37 77 188/73 H 10/16/18 02:22 73 16 100 10/16/18 01:20 71 10/16/18 00:30 158/90 H Laboratory Results 10/16/18 10/16/18 10/16/18 Range/Units 11:30 06:40 06:40 WBC (4.8-10.8) K/uL RBC (4.2-5.4) M/uL Hgb (12.0-16.0) g/dL POC Hgb (12.0-16.0) g/dl Hct (37-47) % POC Hct (37-47) % MCV (80-100) fL MCH (25-34) pg MCHC (32-36) g/dL RDW Std Deviation (36.4-46.3) fL RDW Coeff of Lenard (11.5-14.5) % Plt Count (130-400) K/uL MPV (7.4-10.4) fL Immature Gran % (Auto) % Neut % (Auto) % Lymph % (Auto) % Dixie % (Auto) % Eos % (Auto) % Baso % (Auto) % Immature Gran # (Auto) (0.00-0.02) K/uL Neut # (Auto) (1.4-6.5) K/uL Lymph # (Auto) (1.2-3.4) K/uL [place] # (Auto) (0.11-0.59) K/uL Eos # (Auto) (0-0.5) K/uL Baso # (Auto) (0-0.2) K/uL PT 11.4 (9.0-12.0) Seconds INR 1.1 (0.9-1.1) APTT 24.9 (21.0-31.0) Seconds PTT Ratio 0.9 POC Sodium (135-144) mEq/L Sodium 144 (136-145) mmol/L POC Potassium (3.3-5.0) mEq/L Potassium 3.8 (3.5-5.1) mmol/L POC Chloride (101-112) mEq/L Chloride 106 (98-107) mmol/L Carbon Dioxide 28 (21-32) mmol/L POC Total CO2 (24-31) mEq/l Anion Gap 9.0 (3-11) POC Anion Gap (16-25) mmol/L POC BUN (7-18) mg/dl BUN 20 H (7-18) mg/dl Creatinine 1.14 (0.6-1.2) mg/dl POC Creatinine (0.6-1.3) mg/dl Est Cr Clr Drug Dosing 26.7 ml/min Est GFR ( Amer) 49.7 Est GFR (Non-Af Amer) 42.9 BUN/Creatinine Ratio 17.5 (10-20) Glucose 91 (70-99) mg/dl POC Glucose (other) (70-99) mg/dl POC Lactic Acid Galen (0.90-1.70) mmol/L Calcium 8.5 (8.5-10.1) mg/dl POC Ioniz Calcium Kd (1.12-1.32) mmol/l Total Bilirubin 0.6 (0.2-1) mg/dl AST 21 (15-37) U/L ALT 12 (12-78) U/L Alkaline Phosphatase 155 H (45-117) U/L Troponin I (0-0.045) ng/ml Total Protein 6.7 (6.4-8.2) gm/dl Albumin 2.7 L (3.4-5.0) gm/dl Globulin 4.0 (2.5-4.0) gm/dl Albumin/Globulin Ratio 0.7 L (0.9-2) Lipase (73-393) U/L Urine Color Urine Appearance (Clear) Urine pH (4.5-7.5) Ur Specific [place] (1.000-1.030) Urine Protein (Negative) Urine Glucose (UA) (Negative) Urine Ketones (Negative) Urine Blood (Negative) Urine Nitrite (Negative) Urine Bilirubin (Negative) Urine Urobilinogen (Negative) Ur Leukocyte Esterase (Negative) Urine WBC (Auto) (0-5) /hpf Urine RBC (Auto) (0-4) /hpf U Hyaline Cast (Auto) (0-5) /lpf U Epithel Cells (Auto) (0-5) /lpf Urine Bacteria (Auto) (Negative) Nasal Screen MRSA (PCR) Pending 10/16/18 10/15/18 10/15/18 Range/Units 06:40 21:45 19:00 WBC 14.42 H (4.8-10.8) K/uL RBC 4.65 (4.2-5.4) M/uL Hgb 13.9 (12.0-16.0) g/dL POC Hgb 15.3 (12.0-16.0) g/dl Hct 41.8 (37-47) % POC Hct 45 (37-47) % MCV 89.9 (80-100) fL MCH 29.9 (25-34) pg MCHC 33.3 (32-36) g/dL RDW Std Deviation 44.2 (36.4-46.3) fL RDW Coeff of Lenard 13.6 (11.5-14.5) % Plt Count 239 (130-400) K/uL MPV 10.2 (7.4-10.4) fL Immature Gran % (Auto) 0.3 % Neut % (Auto) 86.3 % Lymph % (Auto) 8.7 % Dixie % (Auto) 4.5 % Eos % (Auto) 0.0 % Baso % (Auto) 0.2 % Immature Gran # (Auto) 0.04 H (0.00-0.02) K/uL Neut # (Auto) 12.44 H (1.4-6.5) K/uL Lymph # (Auto) 1.26 (1.2-3.4) K/uL Dixie # (Auto) 0.65 H (0.11-0.59) K/uL Eos # (Auto) 0.00 (0-0.5) K/uL Baso # (Auto) 0.03 (0-0.2) K/uL PT (9.0-12.0) Seconds INR (0.9-1.1) APTT (21.0-31.0) Seconds PTT Ratio POC Sodium 142 (135-144) mEq/L Sodium (136-145) mmol/L POC Potassium 4.0 (3.3-5.0) mEq/L Potassium (3.5-5.1) mmol/L POC Chloride 98 L (101-112) mEq/L Chloride (98-107) mmol/L Carbon Dioxide (21-32) mmol/L POC Total CO2 32 H (24-31) mEq/l Anion Gap (3-11) POC Anion Gap 16.0 (16-25) mmol/L POC BUN 24 H (7-18) mg/dl BUN (7-18) mg/dl Creatinine (0.6-1.2) mg/dl POC Creatinine 1.1 (0.6-1.3) mg/dl Est Cr Clr Drug Dosing ml/min Est GFR ( Amer) Est GFR (Non-Af Amer) BUN/Creatinine Ratio (10-20) Glucose (70-99) mg/dl POC Glucose (other) 98 (70-99) mg/dl POC Lactic Acid Gaeln (0.90-1.70) mmol/L Calcium (8.5-10.1) mg/dl POC Ioniz Calcium Kd 1.12 (1.12-1.32) mmol/l Total Bilirubin (0.2-1) mg/dl AST (15-37) U/L ALT (12-78) U/L Alkaline Phosphatase (45-117) U/L Troponin I (0-0.045) ng/ml Total Protein (6.4-8.2) gm/dl Albumin (3.4-5.0) gm/dl Globulin (2.5-4.0) gm/dl Albumin/Globulin Ratio (0.9-2) Lipase (73-393) U/L Urine Color Yellow Urine Appearance Clear (Clear) Urine pH 6.5 (4.5-7.5) Ur Specific [place] 1.035 H (1.000-1.030) Urine Protein Negative (Negative) Urine Glucose (UA) Negative (Negative) Urine Ketones Negative (Negative) Urine Blood 2+ H (Negative) Urine Nitrite Negative (Negative) Urine Bilirubin Negative (Negative) Urine Urobilinogen Negative (Negative) Ur Leukocyte Esterase 1+ H (Negative) Urine WBC (Auto) 10-30 H (0-5) /hpf Urine RBC (Auto) 0-4 (0-4) /hpf U Hyaline Cast (Auto) 1-5 (0-5) /lpf U Epithel Cells (Auto) 20-30 H (0-5) /lpf Urine Bacteria (Auto) Negative (Negative) Nasal Screen MRSA (PCR) 10/15/18 10/15/18 10/15/18 Range/Units 18:54 18:47 18:47 WBC (4.8-10.8) K/uL RBC (4.2-5.4) M/uL Hgb (12.0-16.0) g/dL POC Hgb (12.0-16.0) g/dl Hct (37-47) % POC Hct (37-47) % MCV (80-100) fL MCH (25-34) pg MCHC (32-36) g/dL RDW Std Deviation (36.4-46.3) fL RDW Coeff of Lenard (11.5-14.5) % Plt Count (130-400) K/uL MPV (7.4-10.4) fL Immature Gran % (Auto) % Neut % (Auto) % Lymph % (Auto) % [place]ie % (Auto) % Eos % (Auto) % Baso % (Auto) % Immature Gran # (Auto) (0.00-0.02) K/uL Neut # (Auto) (1.4-6.5) K/uL Lymph # (Auto) (1.2-3.4) K/uL [place] # (Auto) (0.11-0.59) K/uL Eos # (Auto) (0-0.5) K/uL Baso # (Auto) (0-0.2) K/uL PT 10.7 (9.0-12.0) Seconds INR 1.0 (0.9-1.1) APTT 25.6 (21.0-31.0) Seconds PTT Ratio 0.9 POC Sodium (135-144) mEq/L Sodium 142 (136-145) mmol/L POC Potassium (3.3-5.0) mEq/L Potassium 3.9 (3.5-5.1) mmol/L POC Chloride (101-112) mEq/L Chloride 102 (98-107) mmol/L Carbon Dioxide 33 H (21-32) mmol/L POC Total CO2 (24-31) mEq/l Anion Gap 8.0 (3-11) POC Anion Gap (16-25) mmol/L POC BUN (7-18) mg/dl BUN 22 H (7-18) mg/dl Creatinine 1.09 (0.6-1.2) mg/dl POC Creatinine (0.6-1.3) mg/dl Est Cr Clr Drug Dosing 28.3 ml/min Est GFR ( Amer) 52.5 Est GFR (Non-Af Amer) 45.3 BUN/Creatinine Ratio 20.3 H (10-20) Glucose 93 (70-99) mg/dl POC Glucose (other) (70-99) mg/dl POC Lactic Acid Galen 1.01 (0.90-1.70) mmol/L Calcium 10.0 (8.5-10.1) mg/dl POC Ioniz Calcium Kd (1.12-1.32) mmol/l Total Bilirubin 0.5 (0.2-1) mg/dl AST 28 (15-37) U/L ALT 15 (12-78) U/L Alkaline Phosphatase 196 H (45-117) U/L Troponin I < 0.015 (0-0.045) ng/ml Total Protein 8.2 (6.4-8.2) gm/dl Albumin 3.3 L (3.4-5.0) gm/dl Globulin 4.9 H (2.5-4.0) gm/dl Albumin/Globulin Ratio 0.7 L (0.9-2) Lipase 168 (73-393) U/L Urine Color Urine Appearance (Clear) Urine pH (4.5-7.5) Ur Specific [place] (1.000-1.030) Urine Protein (Negative) Urine Glucose (UA) (Negative) Urine Ketones (Negative) Urine Blood (Negative) Urine Nitrite (Negative) Urine Bilirubin (Negative) Urine Urobilinogen (Negative) Ur Leukocyte Esterase (Negative) Urine WBC (Auto) (0-5) /hpf Urine RBC (Auto) (0-4) /hpf U Hyaline Cast (Auto) (0-5) /lpf U Epithel Cells (Auto) (0-5) /lpf Urine Bacteria (Auto) (Negative) Nasal Screen MRSA (PCR) 10/15/18 Range/Units 18:47 WBC 13.35 H (4.8-10.8) K/uL RBC 4.83 (4.2-5.4) M/uL Hgb 14.5 (12.0-16.0) g/dL POC Hgb (12.0-16.0) g/dl Hct 43.2 (37-47) % POC Hct (37-47) % MCV 89.4 (80-100) fL MCH 30.0 (25-34) pg MCHC 33.6 (32-36) g/dL RDW Std Deviation 43.6 (36.4-46.3) fL RDW Coeff of Lenard 13.2 (11.5-14.5) % Plt Count 261 (130-400) K/uL MPV 10.3 (7.4-10.4) fL Immature Gran % (Auto) 0.2 % Neut % (Auto) 81.7 % Lymph % (Auto) 12.4 % [place]ie % (Auto) 4.6 % Eos % (Auto) 0.9 % Baso % (Auto) 0.2 % Immature Gran # (Auto) 0.03 H (0.00-0.02) K/uL Neut # (Auto) 10.90 H (1.4-6.5) K/uL Lymph # (Auto) 1.66 (1.2-3.4) K/uL [place] # (Auto) 0.61 H (0.11-0.59) K/uL Eos # (Auto) 0.12 (0-0.5) K/uL Baso # (Auto) 0.03 (0-0.2) K/uL PT (9.0-12.0) Seconds INR (0.9-1.1) APTT (21.0-31.0) Seconds PTT Ratio POC Sodium (135-144) mEq/L Sodium (136-145) mmol/L POC Potassium (3.3-5.0) mEq/L Potassium (3.5-5.1) mmol/L POC Chloride (101-112) mEq/L Chloride (98-107) mmol/L Carbon Dioxide (21-32) mmol/L POC Total CO2 (24-31) mEq/l Anion Gap (3-11) POC Anion Gap (16-25) mmol/L POC BUN (7-18) mg/dl BUN (7-18) mg/dl Creatinine (0.6-1.2) mg/dl POC Creatinine (0.6-1.3) mg/dl Est Cr Clr Drug Dosing ml/min Est GFR ( Amer) Est GFR (Non-Af Amer) BUN/Creatinine Ratio (10-20) Glucose (70-99) mg/dl POC Glucose (other) (70-99) mg/dl POC Lactic Acid Galen (0.90-1.70) mmol/L Calcium (8.5-10.1) mg/dl POC Ioniz Calcium Kd (1.12-1.32) mmol/l Total Bilirubin (0.2-1) mg/dl AST (15-37) U/L ALT (12-78) U/L Alkaline Phosphatase (45-117) U/L Troponin I (0-0.045) ng/ml Total Protein (6.4-8.2) gm/dl Albumin (3.4-5.0) gm/dl Globulin (2.5-4.0) gm/dl Albumin/Globulin Ratio (0.9-2) Lipase (73-393) U/L Urine Color Urine Appearance (Clear) Urine pH (4.5-7.5) Ur Specific [place] (1.000-1.030) Urine Protein (Negative) Urine Glucose (UA) (Negative) Urine Ketones (Negative) Urine Blood (Negative) Urine Nitrite (Negative) Urine Bilirubin (Negative) Urine Urobilinogen (Negative) Ur Leukocyte Esterase (Negative) Urine WBC (Auto) (0-5) /hpf Urine RBC (Auto) (0-4) /hpf U Hyaline Cast (Auto) (0-5) /lpf U Epithel Cells (Auto) (0-5) /lpf Urine Bacteria (Auto) (Negative) Nasal Screen MRSA (PCR) (1) Respiratory failure Chronicity: unspecified Respiratory failure complication: unspecified whether with hypoxia or hypercapnia Qualified Code(s): J96.90 - Respiratory failure, unspecified, unspecified whether with hypoxia or hypercapnia
--- NOTE | 2018-10-16 15:39 | Hospitalist Progress Note ---
Date of Service October 16, 2018 Assessment & Plan (1) Acute respiratory failure with hypoxia: Acute respiratory failure with hypoxia/right middle lobe and right lower lobe pneumonia- much improved, titrated down to 2L NC and breathing comfortably this morning will taper antibiotics to just Aztreonam for now, no reason to suspect anaerobes or MRSA repeat CBC in the morning continue Duoneb (2) Right middle lobe pneumonia: See above taper to just Aztreonam WBC up slightly at 14k, no fever (3) Right lower lobe pneumonia: See above (4) GI bleed: one episode of bleeding after two episodes of diarrhea likely represents ischemic colitis Hb stable no endoscopy planned (5) Intestinal ischemia: no evidence of acute ischemia, this is ruled out lactic acid normal twice some slight bleeding but this 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 difficile colitis, would be concerned regarding recurrence while on antibiotics for pneumonia. Vancomycin 125 mg p.o. 4 times daily as prophylaxis along with Floranex. (7) Chronic kidney disease (CKD) stage G3a/A1, moderately decreased glomerular filtration rate (GFR) between 45-59 mL/min/1.73 square meter and albuminuria c reatinine ratio less than 30 mg/g: Creatinine is at baseline at 1.14 monitor UO (8) 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 Prompted concerns the abdominal pain might be associated with intestinal ischemia, but imaging studies confirmed no acute contribution of decreased arterial blood supply as cause of her symptoms. (9) Colitis: likely acute infectious colitis causing some bleeding, ischemic colitis will be self limiting no plans for colonoscopy per patient allow clears today (10) Lesion of ovary: Prominent left ovary noted on CT. Concerning in her age group. Order a pelvic ultrasound -- cystic in appearance, not concerning for malignancy (11) Breast cancer: History of treatment. Not active at this time. (12) Hypertension: resume all home medications she took her medications in the morning yesterday elevation in BP did not represent hypertensive crisis, she was under distress and pain which drove up pressure Subjective patient feeling better overall, no diarrhea since admission only had the three episodes of diarrhea yesterday morning, last one was slightly bloody she discussed with [facility], not interested in colonoscopy will give patient some clear liquids discussed the findings of pneumonia on CT chest she denies fever, cough, dyspnea will taper antibiotics to just Aztreonam for today, see how she feels reviewed labs, WBC up slightly at 14k Cr stable at 1.14, K is 3.8 lactic acid was normal when tested at 1.0 Review of Systems Review of Systems: All systems reviewed & are unremarkable except as noted in HPI & below Constitutional: no fever, no chills, no sweats, no fatigue and no weakness Respiratory: no cough, no dyspnea, no pain with cough and no sputum production Cardiovascular: no chest pain, no palpitations and no edema Gastrointestinal: + abdominal pain (epigastric, much better now) and + nausea; no vomiting, no constipation, no diarrhea/loose stools and no blood in stools Genitourinary: no dysuria Physical Exam Constitutional: WD/WN, vitals as above + thin Eyes: PERRL, conjunctivae normal, anicteric sclerae ENMT: external ear and nose normal, oropharynx normal Neck: trachea midline, no thyromegaly Respiratory: normal respiratory effort, lungs clear to auscultation Cardiovascular: RRR, no murmur, no edema Gastrointestinal (Abdomen): Inspection/Auscultation: abdomen normal to inspection and normal bowel sounds; abdomen not distended Percussion/Palpation: + abdomen tender (mild in epigastric region) and abdomen soft; no guarding and abdomen not rigid Musculoskeletal: no cyanosis or clubbing, extremities motor strength 5/5 Skin: no rashes, warm and dry Neurologic: patellar DTR's 2+ bilat, sensation intact and PERRL, EOMI, accommodation nl, no face palsy, no dysarthria Psychiatric: A+Ox3, euthymic affect Lymphatic: no cervical or axillary lymphadenopathy Results & Data Vital Signs (Past 12 Hours) Vital Signs Temp Pulse Pulse Resp BP Pulse Ox 10/16/18 15:18 80 18 95 10/16/18 14:59 36.7 C 92 H 16 167/51 H 95 10/16/18 12:00 72 10/16/18 11:35 36.6 C 87 16 130/66 91 10/16/18 11:15 96 H 20 98 10/16/18 08:00 72 10/16/18 07:14 37.0 C 89 20 156/69 H 98 10/16/18 07:00 85 16 95 10/16/18 04:00 160/74 H 06/13/19 03:43 72 18 98 Laboratory Results Laboratory Results - last 24 hr 10/15/18 10/15/18 10/15/18 18:47 18:47 18:47 WBC 13.35 H RBC 4.83 Hgb 14.5 POC Hgb Hct 43.2 POC Hct MCV 89.4 MCH 30.0 MCHC 33.6 RDW Std Deviation 43.6 RDW Coeff of Lenard 13.2 Plt Count 261 MPV 10.3 Immature Gran % (Auto) 0.2 Neut % (Auto) 81.7 Lymph % (Auto) 12.4 Charles % (Auto) 4.6 Eos % (Auto) 0.9 Baso % (Auto) 0.2 Immature Gran # (Auto) 0.03 H Neut # (Auto) 10.90 H Lymph # (Auto) 1.66 [place] # (Auto) 0.61 H Eos # (Auto) 0.12 Baso # (Auto) 0.03 PT 10.7 INR 1.0 APTT 25.6 PTT Ratio 0.9 POC Sodium Sodium 142 POC Potassium Potassium 3.9 POC Chloride Chloride 102 Carbon Dioxide 33 H POC Total CO2 Anion Gap 8.0 POC Anion Gap POC BUN BUN 22 H Creatinine 1.09 POC Creatinine Est Cr Clr Drug Dosing 28.3 Est GFR ( Amer) 52.5 Est GFR (Non-Af Amer) 45.3 BUN/Creatinine Ratio 20.3 H Glucose 93 POC Glucose (other) POC Lactic Acid Galen Calcium 10.0 POC Ioniz Calcium Kd Total Bilirubin 0.5 AST 28 ALT 15 Alkaline Phosphatase 196 H Troponin I < 0.015 Total Protein 8.2 Albumin 3.3 L Globulin 4.9 H Albumin/Globulin Ratio 0.7 L Lipase 168 Urine Color Urine Appearance Urine pH Ur Specific [place] Urine Protein Urine Glucose (UA) Urine Ketones Urine Blood Urine Nitrite Urine Bilirubin Urine Urobilinogen Ur Leukocyte Esterase Urine WBC (Auto) Urine RBC (Auto) U Hyaline Cast (Auto) U Epithel Cells (Auto) Urine Bacteria (Auto) Nasal Screen MRSA (PCR) 10/15/18 10/15/18 10/15/18 18:54 19:00 21:45 WBC RBC Hgb POC Hgb 15.3 Hct POC Hct 45 MCV MCH MCHC RDW Std Deviation RDW Coeff of Lenard Plt Count MPV Immature Gran % (Auto) Neut % (Auto) Lymph % (Auto) [place] % (Auto) Eos % (Auto) Baso % (Auto) Immature Gran # (Auto) Neut # (Auto) Lymph # (Auto) [place] # (Auto) Eos # (Auto) Baso # (Auto) PT INR APTT PTT Ratio POC Sodium 142 Sodium POC Potassium 4.0 Potassium POC Chloride 98 L Chloride Carbon Dioxide POC Total CO2 32 H Anion Gap POC Anion Gap 16.0 POC BUN 24 H BUN Creatinine POC Creatinine 1.1 Est Cr Clr Drug Dosing Est GFR ( Amer) Est GFR (Non-Af Amer) BUN/Creatinine Ratio Glucose POC Glucose (other) 98 POC Lactic Acid [place] 1.01 Calcium POC Ioniz Calcium Kd 1.12 Total Bilirubin AST ALT Alkaline Phosphatase Troponin I Total Protein Albumin Globulin Albumin/Globulin Ratio Lipase Urine Color Yellow Urine Appearance Clear Urine pH 6.5 Ur Specific [place] 1.035 H Urine Protein Negative Urine Glucose (UA) Negative Urine Ketones Negative Urine Blood 2+ H Urine Nitrite Negative Urine Bilirubin Negative Urine Urobilinogen Negative Ur Leukocyte Esterase 1+ H Urine WBC (Auto) 10-30 H Urine RBC (Auto) 0-4 U Hyaline Cast (Auto) 1-5 U Epithel Cells (Auto) 20-30 H Urine Bacteria (Auto) Negative Nasal Screen MRSA (PCR) 10/16/18 10/16/18 10/16/18 06:40 06:40 06:40 WBC 14.42 H RBC 4.65 Hgb 13.9 POC Hgb Hct 41.8 POC Hct MCV 89.9 MCH 29.9 MCHC 33.3 RDW Std Deviation 44.2 RDW Coeff of Lenard 13.6 Plt Count 239 MPV 10.2 Immature Gran % (Auto) 0.3 Neut % (Auto) 86.3 Lymph % (Auto) 8.7 Charles % (Auto) 4.5 Eos % (Auto) 0.0 Baso % (Auto) 0.2 Immature Gran # (Auto) 0.04 H Neut # (Auto) 12.44 H Lymph # (Auto) 1.26 [place] # (Auto) 0.65 H Eos # (Auto) 0.00 Baso # (Auto) 0.03 PT 11.4 INR 1.1 APTT 24.9 PTT Ratio 0.9 POC Sodium Sodium 144 POC Potassium Potassium 3.8 POC Chloride Chloride 106 Carbon Dioxide 28 POC Total CO2 Anion Gap 9.0 POC Anion Gap POC BUN BUN 20 H Creatinine 1.14 POC Creatinine Est Cr Clr Drug Dosing 26.7 Est GFR ( Amer) 49.7 Est GFR (Non-Af Amer) 42.9 BUN/Creatinine Ratio 17.5 Glucose 91 POC Glucose (other) POC Lactic Acid [place] Calcium 8.5 POC Ioniz Calcium Kd Total Bilirubin 0.6 AST 21 ALT 12 Alkaline Phosphatase 155 H Troponin I Total Protein 6.7 Albumin 2.7 L Globulin 4.0 Albumin/Globulin Ratio 0.7 L Lipase Urine Color Urine Appearance Urine pH Ur Specific [place] Urine Protein Urine Glucose (UA) Urine Ketones Urine Blood Urine Nitrite Urine Bilirubin Urine Urobilinogen Ur Leukocyte Esterase Urine WBC (Auto) Urine RBC (Auto) U Hyaline Cast (Auto) U Epithel Cells (Auto) Urine Bacteria (Auto) Nasal Screen MRSA (PCR) 10/16/18 11:30 WBC RBC Hgb POC Hgb Hct POC Hct MCV MCH MCHC RDW Std Deviation RDW Coeff of Lenard Plt Count MPV Immature Gran % (Auto) Neut % (Auto) Lymph % (Auto) [place] % (Auto) Eos % (Auto) Baso % (Auto) Immature Gran # (Auto) Neut # (Auto) Lymph # (Auto) [place] # (Auto) Eos # (Auto) Baso # (Auto) PT INR APTT PTT Ratio POC Sodium Sodium POC Potassium Potassium POC Chloride Chloride Carbon Dioxide POC Total CO2 Anion Gap POC Anion Gap POC BUN BUN Creatinine POC Creatinine Est Cr Clr Drug Dosing Est GFR ( Amer) Est GFR (Non-Af Amer) BUN/Creatinine Ratio Glucose POC Glucose (other) POC Lactic Acid Galen Calcium POC Ioniz Calcium Kd Total Bilirubin AST ALT Alkaline Phosphatase Troponin I Total Protein Albumin Globulin Albumin/Globulin Ratio Lipase Urine Color Urine Appearance Urine pH Ur Specific [place] Urine Protein Urine Glucose (UA) Urine Ketones Urine Blood Urine Nitrite Urine Bilirubin Urine Urobilinogen Ur Leukocyte Esterase Urine WBC (Auto) Urine RBC (Auto) U Hyaline Cast (Auto) U Epithel Cells (Auto) Urine Bacteria (Auto) Nasal Screen MRSA (PCR) Negative Medications Administered Current Inpatient Medications Acetaminophen (Ofirmev) 1,000 mg IV Q8H PRN PRN Reason: Pain or Fever Stop: 11/14/18 22:44 Last Admin: 10/16/18 09:17 Dose: 1,000 mg Documented by: Albuterol (Duoneb) 3 ml NEB QIDR [facility] Stop: 11/15/18 07:59 Last Admin: 10/16/18 15:17 Dose: 3 ml Documented by: Aztreonam (Aztreonam Consult Active) 1 ea N/A UD PRN PRN Reason: Consult Stop: 11/14/18 23:22 Cyclosporine (Restasis) 1 drops OP Q12H [facility] Stop: 11/15/18 20:59 Heparin Sodium (Porcine) (Heparin Sodium (Porcine)) 5,000 units SQ Q12 [facility] Stop: 11/15/18 08:59 Last Admin: 10/16/18 08:11 Dose: 5,000 units Documented by: Aztreonam 1,000 mg/ Dextrose 110 mls @ 110 mls/hr IV Q8H [facility] Stop: 10/23/18 09:59 Last Infusion: 10/16/18 09:43 Dose: Infused Documented by: Famotidine 20 mg/ Syringe 5 mls @ 2.5 mls/min IV Q12H [facility] Stop: 11/15/18 01:59 Last Admin: 10/16/18 14:04 Dose: 2.5 mls/min Documented by: Metoprolol Tartrate (Lopressor) 5 mg IV Q4 PRN PRN Reason: Blood Pressure - High Stop: 11/15/18 00:00 Last Admin: 10/16/18 02:37 Dose: 5 mg Documented by: Ondansetron HCl (Zofran) 4 mg IV Q4H PRN PRN Reason: Nausea Stop: 11/15/18 09:41 Last Admin: 10/16/18 09:52 Dose: 4 mg Documented by: PG Care Time/CCT Total # of Minutes Spent Total Time Spent with Patient: Total time spent is greater than 50% in coordination of care (as documented) at patient's floor/unit and/or counseling patient:
[2018-10-16] MEDS: METOPROLOL TARTRATE 25 MG TAB PO SCH (16:48)
[2018-10-16] MEDS: LOSARTAN POTASSIUM 50 MG TAB PO SCH (16:48)
[2018-10-16] MEDS ORDERED: VANCOMYCIN HCL 750 MG in SODIUM CHLORIDE 0.9% 250 ML IV SCH (18:00)
[2018-10-16] MEDS ORDERED: PROMETHAZINE HCL 6.25 MG in SODIUM CHLORIDE 0.9% 50 ML IV PRN (20:42)
[2018-10-16] MEDS ORDERED: TRAMADOL HCL 50 MG TABLET PO STA (20:54)
[2018-10-16] MEDS: cloNIDine HCl 0.1 MG TAB PO SCH (21:35)
[2018-10-16] MEDS: ANASTROZOLE 1 MG TAB PO SCH (21:35)
[2018-10-16] MEDS: GABAPENTIN 300 MG CAP PO SCH (21:35)
[2018-10-16] MEDS: cycloSPORINE (RESTASIS) OP SCH (21:36)
[2018-10-17] MEDS: METOPROLOL TARTRATE 1 MG/ML VIAL IV PRN (00:12)
[2018-10-17] MEDS: FAMOTIDINE 20 MG in SYRINGE 3 ML IV SCH ×2 (02:01→14:14)
[2018-10-17] MEDS: AZTREONAM 1,000 MG in DEXTROSE 5% 100 ML IV SCH ×3 (02:04→18:16)
[2018-10-17 06:48] LABS: Basophils # (auto) 0.02 K/uL (0-0.2); Basophils % (auto) 0.2 %; Eosinophils # (auto) 0.08 K/uL (0-0.5); Eosinophils % (auto) 0.9 %; Hematocrit (blood only) 35.1 % (37-47); Hemoglobin 11.6 g/dL (12.0-16.0); Immature Granulocytes # (auto) 0.02 K/uL (0.00-0.02); Immature Granulocytes % (auto) 0.2 %; Lymphocytes # (auto) 1.89 K/uL (1.2-3.4); Mean Corpuscular Volume 90.2 fL (80-100); Mean Platelet Volume 10.1 fL (7.4-10.4); Monocytes # (auto) 0.71 K/uL (0.11-0.59); Monocytes % (auto) 7.9 %; Neutrophils # (auto) 6.28 K/uL (1.4-6.5); Neutrophils % (auto) 69.8 %; Platelet Count 225 K/uL (130-400); RDW Coefficient of Variation 13.8 % (11.5-14.5); RDW Standard Deviation 45.6 fL (36.4-46.3); Red Blood Count 3.89 M/uL (4.2-5.4)
[2018-10-17] MEDS: ALBUT/IPRATROP 3MG/0.5MG NEB 3 ML VIAL NEB SCH ×4 (06:54→19:40)
[2018-10-17 06:58] LABS: INR 1.2 (0.9-1.1); Prothrombin Time 12.6 Seconds (9.0-12.0)
[2018-10-17 07:20] LABS: Albumin Level 2.4 gm/dl (3.4-5.0); BUN Creatinine Ratio 16.7 (10-20); Creatinine Clr Calc Pharmacy 25.5 ml/min; Est GFR (African American) 47.7; Est GFR (Non-African American) 41.1; Magnesium 2.1 mg/dl (1.8-2.4); Potassium 3.7 mmol/L (3.5-5.1)
[2018-10-17 07:23] LABS: Albumin Globulin Ratio 0.7 (0.9-2); Bilirubin,Total 0.4 mg/dl (0.2-1); Globulin 3.4 gm/dl (2.5-4.0); Total Protein 5.8 gm/dl (6.4-8.2)
[2018-10-17] MEDS: cycloSPORINE (RESTASIS) OP SCH ×2 (08:07→21:18)
[2018-10-17] MEDS: HEPARIN SOD 5,000 UNIT/0.5 ML VIAL SQ SCH ×2 (08:07→21:18)
[2018-10-17] MEDS: GABAPENTIN 100 MG CAP PO SCH ×2 (08:08→12:33)
[2018-10-17] MEDS: cloNIDine HCl 0.1 MG TAB PO SCH ×2 (08:08→21:17)
[2018-10-17] MEDS: LOSARTAN POTASSIUM 50 MG TAB PO SCH (08:08)
[2018-10-17] MEDS: METOPROLOL TARTRATE 25 MG TAB PO SCH ×2 (08:08→21:16)
[2018-10-17] MEDS ORDERED: FUROSEMIDE 20 MG TAB PO SCH (09:00)
[2018-10-17] MEDS ORDERED: cloNIDine HCl 0.1 MG TAB PO ONE (09:50)
--- NOTE | 2018-10-17 16:01 | Hospitalist Progress Note ---
Date of Service October 17, 2018 Assessment & Plan (1) Acute respiratory failure with hypoxia: Acute respiratory failure with hypoxia/right middle lobe and right lower lobe pneumonia- much improved, titrated down to room air and breathing comfortably this morning will taper antibiotics to just Aztreonam for now, no reason to suspect anaerobes or MRSA WBC is normal continue Aztreonam while admitted, oral options will be limited given allergies (2) Right middle lobe pneumonia: See above taper to just Aztreonam WBC normal today (3) Right lower lobe pneumonia: See above (4) GI bleed: one episode of bleeding after two episodes of diarrhea likely represents ischemic colitis Hb stable no endoscopy planned no diarrhea and no bleeding for 48 hours (5) Intestinal ischemia: no evidence of acute ischemia, this is ruled out lactic acid normal twice some slight bleeding but this 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 difficile colitis, would be concerned regarding recurrence while on antibiotics for pneumonia. Vancomycin 125 mg p.o. 4 times daily as prophylaxis along with Floranex. no diarrhea this time which argues against any active C diff infection plan to limit treatment of pneumonia to just 5 days (7) Chronic kidney disease (CKD) stage G3a/A1, moderately decreased glomerular filtration rate (GFR) between 45-59 mL/min/1.73 square meter and albuminuria creatinine ratio less than 30 mg/g: Creatinine is at baseline monitor UO (8) Hypertension: resume all home medications her extremely high pressures were likely rebound HTN from holding Clonidine as well as pain and stress pressures much better with resume Clonidine, Metoprolol, Losartan continue to monitor (9) 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 Prompted concerns the abdominal pain might be associated with intestinal ischemia, but imaging studies confirmed no acute contribution of decreased arterial blood supply as cause of her symptoms. (10) Colitis: likely acute infectious colitis causing some bleeding, ischemic colitis will be self limiting no plans for colonoscopy per patient advance to light diet today (11) Lesion of ovary: Prominent left ovary noted on CT. Concerning in her age group. Order a pelvic ultrasound -- cystic in appearance, not concerning for malignancy (12) Breast cancer: History of treatment. Not active at this time. Subjective patient feeling a lot better this morning, tolerating liquids she was requesting a light diet reviewed labs, Hb stable, WBC normal, Cr at baseline no respiratory issues today, no cough minimal epigastric pain, minimal nausea, has not vomited d/w RN, will transfer to medical floor patient has not had diarrhea her entire stay Review of Systems Review of Systems: All systems reviewed & are unremarkable except as noted in HPI & below Constitutional: + fatigue and + weakness; no fever, no chills and no sweats Respiratory: no cough and no dyspnea Cardiovascular: no chest pain, no palpitations, no syncope and no edema Gastrointestinal: + abdominal pain (epigastric) and + nausea; no vomiting, no constipation, no diarrhea/loose stools and no blood in stools Physical Exam Constitutional: WD/WN, vitals as above + thin Eyes: PERRL, conjunctivae normal, anicteric sclerae ENMT: external ear and nose normal, oropharynx normal Neck: trachea midline, no thyromegaly Respiratory: normal respiratory effort, lungs clear to auscultation Cardiovascular: RRR, no murmur, no edema Gastrointestinal (Abdomen): Inspection/Auscultation: abdomen normal to inspection and normal bowel sounds; abdomen not distended Percussion/Palpation: + abdomen tender (mild in epigastric region) and abdomen soft; no guarding and abdomen not rigid Musculoskeletal: no cyanosis or clubbing, extremities motor strength 5/5 Skin: no rashes, warm and dry Neurologic: patellar DTR's 2+ bilat, sensation intact and PERRL, EOMI, accommodation nl, no face palsy, no dysarthria Psychiatric: A+Ox3, euthymic affect Lymphatic: no cervical or axillary lymphadenopathy Results & Data Vital Signs (Past 12 Hours) Vital Signs Temp Pulse Pulse Resp BP BP Pulse Ox 10/17/18 15:33 36.4 C L 61 18 115/55 L 97 10/17/18 11:43 36.4 C L 65 18 101/45 L 94 10/17/18 11:40 63 16 94 10/17/18 08:00 98 H 10/17/18 07:02 36.5 C 75 16 178/72 H 100 10/17/18 06:54 82 16 96 10/17/18 04:00 36.9 C 75 118/61 95 Laboratory Results Laboratory Results - last 24 hr 10/17/18 10/17/18 10/17/18 06:10 06:10 06:10 WBC 9.00 RBC 3.89 L Hgb 11.6 L Hct 35.1 L MCV 90.2 MCH 29.8 MCHC 33.0 RDW Std Deviation 45.6 RDW Coeff of Lenard 13.8 Plt Count 225 MPV 10.1 Immature Gran % (Auto) 0.2 Neut % (Auto) 69.8 Lymph % (Auto) 21.0 [place] % (Auto) 7.9 Eos % (Auto) 0.9 Baso % (Auto) 0.2 Immature Gran # (Auto) 0.02 Neut # (Auto) 6.28 Lymph # (Auto) 1.89 [place] # (Auto) 0.71 H Eos # (Auto) 0.08 Baso # (Auto) 0.02 PT 12.6 H INR 1.2 H Sodium 144 Potassium 3.7 Chloride 108 H Carbon Dioxide 30 Anion Gap 6.0 BUN 20 H Creatinine 1.18 Est Cr Clr Drug Dosing 25.5 Est GFR ( Amer) 47.7 Est GFR (Non-Af Amer) 41.1 BUN/Creatinine Ratio 16.7 Glucose 97 Calcium 8.0 L Magnesium 2.1 Total Bilirubin 0.4 AST 19 ALT 9 L Alkaline Phosphatase 119 H Total Protein 5.8 L Albumin 2.4 L Globulin 3.4 Albumin/Globulin Ratio 0.7 L Microbiology 10/15/18 21:45 Urine,Clean Catch Urine Culture - Final More than three types of organisms present, all moderate counts mixed probable skin tete. No further identifications or sensitivities to follow. Medications Administered Current Inpatient Medications Albuterol (Duoneb) 3 ml NEB QIDR [facility] Stop: 11/15/18 07:59 Last Admin: 10/17/18 15:51 Dose: Not Given Documented by: Anastrozole (Arimidex) 1 mg PO QPM [facility] Stop: 11/15/18 20:59 Last Admin: 10/16/18 21:35 Dose: 1 mg Documented by: Aztreonam (Aztreonam Consult Active) 1 ea N/A UD PRN PRN Reason: Consult Stop: 11/14/18 23:22 Clonidine HCl (Catapres) 0.2 mg PO BID [facility] Stop: 11/16/18 20:59 Cyclosporine (Restasis) 1 drops OP Q12H [facility] Stop: 11/15/18 20:59 Last Admin: 10/17/18 08:07 Dose: 1 drops Documented by: Gabapentin (Neurontin) 200 mg PO BID@0730,1200 [facility] Stop: 11/16/18 07:29 Last Admin: 10/17/18 12:33 Dose: 200 mg Documented by: Gabapentin (Neurontin) 300 mg PO HS [facility] Stop: 11/15/18 20:59 Last Admin: 10/16/18 21:35 Dose: 300 mg Documented by: Heparin Sodium (Porcine) (Heparin Sodium (Porcine)) 5,000 units SQ Q12 [facility] Stop: 11/15/18 08:59 Last Admin: 10/17/18 08:07 Dose: 5,000 units Documented by: Aztreonam 1,000 mg/ Dextrose 110 mls @ 110 mls/hr IV Q8H [facility] Stop: 10/23/18 09:59 Last Infusion: 10/17/18 11:52 Dose: Infused Documented by: Famotidine 20 mg/ Syringe 5 mls @ 2.5 mls/min IV Q12H [facility] Stop: 11/15/18 01:59 Last Admin: 10/17/18 14:14 Dose: 2.5 mls/min Documented by: Promethazine HCl 6.25 mg/ (Sodium Chloride) 50.25 mls @ 201 mls/hr IV Q6H PRN PRN Reason: Nausea And Vomiting Stop: 11/15/18 20:41 Last Infusion: 10/16/18 21:58 Dose: Infused Documented by: Losartan Potassium (Cozaar) 100 mg PO QAM [facility] Stop: 11/15/18 15:59 Last Admin: 10/17/18 08:08 Dose: 100 mg Documented by: Metoprolol Tartrate (Lopressor) 75 mg PO BID [facility] Stop: 11/15/18 15:59 Last Admin: 10/17/18 08:08 Dose: 75 mg Documented by: Ondansetron HCl (Zofran) 4 mg IV Q4H PRN PRN Reason: Nausea Stop: 11/15/18 09:41 Last Admin: 10/16/18 18:20 Dose: 4 mg Documented by: PG Care Time/CCT Total # of Minutes Spent Total Time Spent with Patient: Total time spent is greater than 50% in coordination of care (as documented) at patient's floor/unit and/or counseling patient:
[2018-10-17] MEDS ORDERED: cloNIDine HCl 0.1 MG TAB PO SCH (21:00)
[2018-10-17] MEDS: GABAPENTIN 300 MG CAP PO SCH (21:17)
[2018-10-17] MEDS: ANASTROZOLE 1 MG TAB PO SCH (21:18)
[2018-10-18] MEDS: FAMOTIDINE 20 MG in SYRINGE 3 ML IV SCH ×2 (02:22→13:59)
[2018-10-18] MEDS: AZTREONAM 1,000 MG in DEXTROSE 5% 100 ML IV SCH ×3 (02:22→17:15)
[2018-10-18 07:20] LABS: Basophils # (auto) 0.03 K/uL (0-0.2); Basophils % (auto) 0.4 %; Eosinophils # (auto) 0.29 K/uL (0-0.5); Eosinophils % (auto) 4.3 %; Hematocrit (blood only) 33.4 % (37-47); Immature Granulocytes # (auto) 0.01 K/uL (0.00-0.02); Immature Granulocytes % (auto) 0.1 %; Lymphocytes # (auto) 2.06 K/uL (1.2-3.4); Lymphocytes % (auto) 30.5 %; Mean Corpuscular Hgb Conc 32.9 g/dL (32-36); Mean Corpuscular Volume 91.5 fL (80-100); Mean Platelet Volume 10.1 fL (7.4-10.4); Monocytes # (auto) 0.52 K/uL (0.11-0.59); Monocytes % (auto) 7.7 %; Neutrophils # (auto) 3.85 K/uL (1.4-6.5); Platelet Count 182 K/uL (130-400); RDW Coefficient of Variation 13.8 % (11.5-14.5); RDW Standard Deviation 46.4 fL (36.4-46.3); Red Blood Count 3.65 M/uL (4.2-5.4); White Blood Count 6.76 K/uL (4.8-10.8)
[2018-10-18] MEDS: ALBUT/IPRATROP 3MG/0.5MG NEB 3 ML VIAL NEB SCH (07:21)
[2018-10-18 07:36] LABS: INR 1.2 (0.9-1.1); Prothrombin Time 12.3 Seconds (9.0-12.0)
[2018-10-18 07:39] LABS: Albumin Level 2.2 gm/dl (3.4-5.0); BUN Creatinine Ratio 19.6 (10-20); Calcium 7.5 mg/dl (8.5-10.1); Creatinine Clr Calc Pharmacy 25.1 ml/min; Est GFR (African American) 46.7; Est GFR (Non-African American) 40.3; Magnesium 2.1 mg/dl (1.8-2.4); Potassium 3.5 mmol/L (3.5-5.1)
[2018-10-18 07:42] LABS: Albumin Globulin Ratio 0.7 (0.9-2); Bilirubin,Total 0.4 mg/dl (0.2-1); Globulin 3.2 gm/dl (2.5-4.0); Total Protein 5.4 gm/dl (6.4-8.2)
[2018-10-18] MEDS: GABAPENTIN 100 MG CAP PO SCH ×2 (07:42→11:59)
[2018-10-18] MEDS: cloNIDine HCl 0.1 MG TAB PO SCH ×2 (08:49→21:15)
[2018-10-18] MEDS: METOPROLOL TARTRATE 25 MG TAB PO SCH ×2 (08:49→21:14)
[2018-10-18] MEDS: cycloSPORINE (RESTASIS) OP SCH ×2 (08:50→21:16)
[2018-10-18] MEDS: LOSARTAN POTASSIUM 50 MG TAB PO SCH (08:50)
[2018-10-18] MEDS: HEPARIN SOD 5,000 UNIT/0.5 ML VIAL SQ SCH ×2 (08:50→21:15)
[2018-10-18] MEDS ORDERED: LOPERAMIDE HCL 2 MG CAP PO PRN (09:18)
--- NOTE | 2018-10-18 09:18 | Hospitalist Progress Note ---
Date of Service October 18, 2018 Assessment & Plan (1) Acute respiratory failure with hypoxia: Acute respiratory failure with hypoxia/right middle lobe and right lower lobe pneumonia- acute failure resolved, titrated down to room air and breathing comfortably for two days will taper antibiotics to just Aztreonam for now, no reason to suspect anaerobes or MRSA WBC continues to be normal continue Aztreonam while admitted, oral options will be limited given allergies anticipate d/c to home tomorrow afternoon (2) Right middle lobe pneumonia: See above taper to just Aztreonam WBC normal again today (3) Right lower lobe pneumonia: See above (4) GI bleed: one episode of bleeding after two episodes of diarrhea and this occurred at home likely represents ischemic colitis Hb stable no endoscopy planned two very small episodes of diarrhea will add some imodium (5) Intestinal ischemia: no evidence of acute ischemia, this is ruled out lactic acid normal twice some slight bleeding but this 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 difficile colitis, would be concerned regarding recurrence while on antibiotics for pneumonia. Vancomycin 125 mg p.o. 4 times daily as prophylaxis along with Floranex. no diarrhea this time which argues against any active C diff infection plan to limit treatment of pneumonia to just 5 days (7) Chronic kidney disease (CKD) stage G3a/A1, moderately decreased glomerular filtration rate (GFR) between 45-59 mL/min/1.73 square meter and albuminuria creatinine ratio less than 30 mg/g: Creatinine has been at baseline during entire admission monitor UO (8) Hypertension: resume all home medications her extremely high pressures were likely rebound HTN from holding Clonidine as well as pain and stress pressures much better with resume Clonidine, Metoprolol, Losartan resume Lasix today (9) 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 Prompted concerns the abdominal pain might be associated with intestinal ischemia, but imaging studies confirmed no acute contribution of decreased arterial blood supply as cause of her symptoms. (10) Colitis: likely acute infectious colitis causing some bleeding, ischemic colitis will be self limiting no plans for colonoscopy per patient tolerating light diet add some Imodium today (11) Lesion of ovary: Prominent left ovary noted on CT. Concerning in her age group. Order a pelvic ultrasound -- cystic in appearance, not concerning for malignancy (12) Breast cancer: History of treatment. Not active at this time. Subjective patient doing better, said she ate all of her breakfast two very small BM last night and this morning, no blood seen she is making urine reviewed labs, CBC and BMP normal breathing is stable, actually coughing a little more since she has been here, more sputum production today would be day three total of antibiotics, discussed that I want her to have one more day here to ensure improvement she asked about her Lasix, told her we can resume Review of Systems Review of Systems: All systems reviewed & are unremarkable except as noted in HPI & below Constitutional: no fever, no chills, no sweats, no fatigue and no weakness Respiratory: + cough and + sputum production; no dyspnea and no dyspnea on exertion Cardiovascular: no chest pain and no edema Gastrointestinal: + abdominal pain (mild, epigastric) and + diarrhea/loose stools (two very small episodes); no nausea and no constipation Physical Exam Constitutional: WD/WN, vitals as above + thin Eyes: PERRL, conjunctivae normal, anicteric sclerae ENMT: external ear and nose normal, oropharynx normal Neck: trachea midline, no thyromegaly Respiratory: normal respiratory effort, lungs clear to auscultation (scattered rhonchi, clear with cough) Cardiovascular: RRR, no murmur, no edema Gastrointestinal (Abdomen): Inspection/Auscultation: abdomen normal to inspection and normal bowel sounds; abdomen not distended Percussion/Palpation: + abdomen tender (mild in epigastric region) and abdomen soft; no guarding and abdomen not rigid Musculoskeletal: no cyanosis or clubbing, extremities motor strength 5/5 Skin: no rashes, warm and dry Neurologic: patellar DTR's 2+ bilat, sensation intact and PERRL, EOMI, accommodation nl, no face palsy, no dysarthria Psychiatric: A+Ox3, euthymic affect Lymphatic: no cervical or axillary lymphadenopathy Results & Data Vital Signs (Past 12 Hours) Vital Signs Temp Pulse Resp BP BP Pulse Ox 10/18/18 08:00 36.3 C L 58 L 20 135/45 L 100 10/18/18 07:24 55 L 16 96 10/17/18 23:49 36.5 C 64 18 134/63 93 10/17/18 21:58 60 152/63 H Laboratory Results Laboratory Results - last 24 hr 10/18/18 10/18/1810/18/19 06:54 06:54 06:54 WBC 6.76 RBC 3.65 L Hgb 11.0 L Hct 33.4 L MCV 91.5 MCH 30.1 MCHC 32.9 RDW Std Deviation 46.4 H RDW Coeff of Lenard 13.8 Plt Count 182 MPV 10.1 Immature Gran % (Auto) 0.1 Neut % (Auto) 57.0 Lymph % (Auto) 30.5 Mason % (Auto) 7.7 Eos % (Auto) 4.3 Baso % (Auto) 0.4 Immature Gran # (Auto) 0.01 Neut # (Auto) 3.85 Lymph # (Auto) 2.06 Mason # (Auto) 0.52 Eos # (Auto) 0.29 Baso # (Auto) 0.03 PT 12.3 H INR 1.2 H Sodium 142 Potassium 3.5 Chloride 109 H Carbon Dioxide 31 Anion Gap 2.0 L BUN 23 H Creatinine 1.20 Est Cr Clr Drug Dosing 25.1 Est GFR ( Amer) 46.7 Est GFR (Non-Af Amer) 40.3 BUN/Creatinine Ratio 19.6 Glucose 83 Calcium 7.5 L Magnesium 2.1 Total Bilirubin 0.4 AST 20 ALT 8 L Alkaline Phosphatase 115 Total Protein 5.4 L Albumin 2.2 L Globulin 3.2 Albumin/Globulin Ratio 0.7 L Medications Administered Current Inpatient Medications Albuterol (Duoneb) 3 ml NEB QIDR [facility] Stop: 11/15/18 07:59 Last Admin: 10/18/18 07:21 Dose: 3 ml Documented by: Anastrozole (Arimidex) 1 mg PO QPM JANEEN Stop: 11/15/18 20:59 Last Admin: 10/17/18 21:18 Dose: 1 mg Documented by: Aztreonam (Aztreonam Consult Active) 1 ea N/A UD PRN PRN Reason: Consult Stop: 11/14/18 23:22 Clonidine HCl (Catapres) 0.2 mg PO BID [facility] Stop: 11/16/18 20:59 Last Admin: 10/18/18 08:49 Dose: 0.2 mg Documented by: Cyclosporine (Restasis) 1 drops OP Q12H JANENE Stop: 11/15/18 20:59 Last Admin: 10/18/18 08:50 Dose: 1 drops Documented by: Furosemide (Lasix) 20 mg PO QAM [facility] Stop: 11/17/18 09:14 Gabapentin (Neurontin) 200 mg PO BID@0730,1200 [facility] Stop: 11/16/18 07:29 Last Admin: 10/18/18 07:42 Dose: 200 mg Documented by: Gabapentin (Neurontin) 300 mg PO HS [facility] Stop: 11/15/18 20:59 Last Admin: 10/17/18 21:17 Dose: 300 mg Documented by: Heparin Sodium (Porcine) (Heparin Sodium (Porcine)) 5,000 units SQ Q12 [facility] Stop: 11/15/18 08:59 Last Admin: 10/18/18 08:50 Dose: 5,000 units Documented by: Aztreonam 1,000 mg/ Dextrose 110 mls @ 110 mls/hr IV Q8H [facility] Stop: 10/23/18 09:59 Last Infusion: 10/18/18 03:44 Dose: Infused Documented by: Famotidine 20 mg/ Syringe 5 mls @ 2.5 mls/min IV Q12H [facility] Stop: 11/15/18 01:59 Last Admin: 10/18/18 02:22 Dose: 2.5 mls/min Documented by: Promethazine HCl 6.25 mg/ (Sodium Chloride) 50.25 mls @ 201 mls/hr IV Q6H PRN PRN Reason: Nausea And Vomiting Stop: 11/15/18 20:41 Last Infusion: 10/16/18 21:58 Dose: Infused Documented by: Losartan Potassium (Cozaar) 100 mg PO QAM [facility] Stop: 11/15/18 15:59 Last Admin: 10/18/18 08:50 Dose: 100 mg Documented by: Metoprolol Tartrate (Lopressor) 75 mg PO BID [facility] Stop: 11/15/18 15:59 Last Admin: 10/18/18 08:49 Dose: 75 mg Documented by: Ondansetron HCl (Zofran) 4 mg IV Q4H PRN PRN Reason: Nausea Stop: 11/15/18 09:41 Last Admin: 10/16/18 18:20 Dose: 4 mg Documented by: PG Care Time/CCT Total # of Minutes Spent Total Time Spent with Patient: Total time spent is greater than 50% in coordination of care (as documented) at patient's floor/unit and/or counseling patient:
[2018-10-18] MEDS: FUROSEMIDE 20 MG TAB PO SCH (10:47)
[2018-10-18] MEDS ORDERED: VANCOMYCIN TROUGH ONE (17:30)
[2018-10-18] MEDS: GABAPENTIN 300 MG CAP PO SCH (21:14)
[2018-10-18] MEDS: ANASTROZOLE 1 MG TAB PO SCH (21:16)
[2018-10-19] MEDS: AZTREONAM 1,000 MG in DEXTROSE 5% 100 ML IV SCH ×2 (01:46→10:28)
[2018-10-19] MEDS: FAMOTIDINE 20 MG in SYRINGE 3 ML IV SCH (01:46)
[2018-10-19 07:23] LABS: Creatinine Clr Calc Pharmacy 32.3 ml/min; Est GFR (African American) 63.6; Est GFR (Non-African American) 54.9; Magnesium 2.1 mg/dl (1.8-2.4)
[2018-10-19] MEDS: GABAPENTIN 100 MG CAP PO SCH (07:44)
[2018-10-19] MEDS: cloNIDine HCl 0.1 MG TAB PO SCH (08:53)
[2018-10-19] MEDS: HEPARIN SOD 5,000 UNIT/0.5 ML VIAL SQ SCH (08:53)
[2018-10-19] MEDS: LOSARTAN POTASSIUM 50 MG TAB PO SCH (08:53)
[2018-10-19] MEDS: METOPROLOL TARTRATE 25 MG TAB PO SCH (08:53)
[2018-10-19] MEDS: FUROSEMIDE 20 MG TAB PO SCH (08:53)
[2018-10-19] MEDS: cycloSPORINE (RESTASIS) OP SCH (08:54)
--- NOTE | 2018-10-19 15:03 | Discharge Summary ---
Date of Service October 19, 2018 Admission HPI Per Admitting Provider The patient is an 87 yo female with PMH including right AKA secondary to severe PAD, who presents to the ED with complaint of severe epigastric and upper abdominal pain, with nausea and BRBPR that developed earlier in the morning prior to arrival. She also has developed some intermittent shortness of breath, and had an episode while in the ED with desaturation into the upper 70s, that necessitated placement of BiPAP and significant improvement with pulse ox back into the mid 90s. This most recent episode was likely triggered by her underlying pneumonia, with accentuation by needed IV fluids for resuscitation. She was given a DuoNeb nebulizer and Lasix 20 mg IV x1 in ED with improvement in symptoms. Principal Diagnosis Right lower lobe pneumonia Discharge Exam Constitutional WD/WN, vitals as above + thin Eyes PERRL, conjunctivae normal, anicteric sclerae ENMT external ear and nose normal, oropharynx normal Neck trachea midline, no thyromegaly Respiratory normal respiratory effort, lungs clear to auscultation (scattered rhonchi, clear with cough) Cardiovascular RRR, no murmur, no edema Gastrointestinal (Abdomen) Inspection/Auscultation: abdomen normal to inspection and normal bowel sounds; abdomen not distended Percussion/Palpation: abdomen soft; abdomen nontender, no guarding and abdomen not rigid Musculoskeletal no cyanosis or clubbing, extremities motor strength 5/5 Skin no rashes, warm and dry Neurologic patellar DTR's 2+ bilat, sensation intact and PERRL, EOMI, accommodation nl, no face palsy, no dysarthria Psychiatric A+Ox3, euthymic affect Lymphatic no cervical or axillary lymphadenopathy Discharge Data Allergies Allergy/AdvReac Type Severity Reaction Status Date / Time Sulfa (Sulfonamide Allergy Intermediate RASH Verified 05/22/18 14:34 Antibiotics) morphine Allergy Unknown see notes Verified 05/22/18 14:34 piperacillin [From Zosyn] AdvReac Intermediate Difficulty Verified 10/15/18 21:34 Breathing tazobactam [From Zosyn] AdvReac Intermediate Difficulty Verified 10/15/18 21:34 Breathing codeine AdvReac Mild ABD CRAMPS Verified 05/22/18 14:34 Consultations 10/15/18 20:03 ED Decision to Admit Stat 10/15/18 22:45 Consult Case Management - Discharge Planning Routine 10/16/18 01:39 Consult Gastroenterology Routine Ordered Studies 10/15/18 19:09 CT angio abdomen pelvis w con Stat 10/16/18 01:34 US pelvic limited Routine Hospital Course (1) Acute respiratory failure with hypoxia: Acute respiratory failure with hypoxia/right middle lobe and right lower lobe pneumonia- acute failure resolved, titrated down to room air and breathing comfortably for three days tapered antibiotics to just Aztreonam no reason to suspect anaerobes or MRSA WBC continues to be normal continue Aztreonam while admitted, oral options will be limited given allergies d/c home on a dose of Levaquin follow up with PCP (2) Right middle lobe pneumonia: See above taper to just Aztreonam WBC normal again today d/c home on Levaquin (3) Right lower lobe pneumonia: See above (4) GI bleed: one episode of bleeding after two episodes of diarrhea and this occurred at home likely represents ischemic colitis Hb stable for days no endoscopy planned two very small episodes of diarrhea will add some imodium (5) Intestinal ischemia: no evidence of acute ischemia, this is ruled out lactic acid normal twice some slight bleeding but this 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 difficile colitis, would be concerned regarding recurrence while on antibiotics for pneumonia. Vancomycin 125 mg p.o. 4 times daily as prophylaxis along with Floranex. no diarrhea this time which argues against any active C diff infection plan to limit treatment of pneumonia to just 5 days (7) Chronic kidney disease (CKD) stage G3a/A1, moderately decreased glomerular filtration rate (GFR) between 45-59 mL/min/1.73 square meter and albuminuria creatinine ratio less than 30 mg/g: Creatinine has been at baseline during entire admission monitor UO (8) Hypertension: resume all home medications her extremely high pressures were likely rebound HTN from holding Clonidine as well as pain and stress pressures much better with resume Clonidine, Metoprolol, Losartan resume Lasix today (9) 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 Prompted concerns the abdominal pain might be associated with intestinal ischemia, but imaging studies confirmed no acute contribution of decreased arterial blood supply as cause of her symptoms. (10) Colitis: likely acute infectious colitis causing some bleeding, ischemic colitis will be self limiting no plans for colonoscopy per patient tolerating light diet add some Imodium prior to discharge (11) Lesion of ovary: Prominent left ovary noted on CT. Concerning in her age group. Order a pelvic ultrasound -- cystic in appearance, not concerning for malignancy (12) Breast cancer: History of treatment. Not active at this time. Total Time Total Time Spent Total Time Spent (In Minutes): 35 minutes Total Time Includes: Examination of the Patient, Discharge Planning and Medication Reconciliation Discharge Plan Discharge Items Patient Disposition: Home - Self-Care Reason For Visit: TRANSVERSE COLITIS, HYPOXIA Discharge Diagnosis: Colitis Pneumonia Condition: Good Discharge Goals: Improve disease control and Improve function Activity: Resume your previous activity Non-emergency contact: Primary Care Provider Call non-emergency contact if: you have any medication questions, your symptoms worsen, your pain is worsening and you have a fever Follow-up/Referrals: Ahsan James MD [Primary Care Provider] - Diet: Regular Addtl Provider Instructions: Medications: - LEVOFLOXACIN: antibiotic, complete just one more day for 5 days total of treatment for pneumonia - IMODIUM: obtain over the counter, take as needed for any diarrhea Right sided pneumonia clinically you are very stable, no fever, normal WBC, no cough or shortness of breath responded well to IV antibiotics, completed 4 days while inpatient need one more day of Levaquin at home recommend follow up with your PCP in one week Colitis: inflammation see in transverse colon on CAT scan still with some lingering diarrhea which can be normal, no bleeding since prior to admission [facility] feels that the small amount of blood was from ischemic colitis, self limiting your blood count has been stable the past four days use Imodium as needed no dietary restrictions FOLLOW UP - Dr. James in one week Prescriptions: New levofloxacin 750 mg tablet 750 mg PO DAILY Qty: 1 RF: 0 Continued anastrozole 1 mg tablet 1 mg PO QPM RF: 0 aspirin 81 mg Tablet,Delayed Release (Dr/Ec) 81 mg PO QPM RF: 0 clonidine HCl 0.2 mg tablet 0.2 mg PO BID RF: 0 metoprolol tartrate 50 mg tablet 75 mg PO Q12H RF: 0 furosemide 20 mg tablet 20 mg PO QAM RF: 0 gabapentin 100 mg Capsule 200 mg PO BID RF: 0 gabapentin 100 mg Capsule 300 mg PO HS RF: 0 losartan 100 mg tablet 100 mg PO QAM RF: 0 Restasis 0.05 % dropperette 1 drp OPB Q12H RF: 0 Stand-Alone Forms: On License Of [facility] Discharge Orders: Discharge Order (Routine); Ordered 10/19/18 Ordered By: Sunny Newman Admission Data Admit Date/Time: 10/15/18 21:30 Attending Provider: Sunny Newman Admit Provider: Dexter Rice Primary Care Provider: Ahsan James Other Providers: Dexter Rice Service: Medical Other Interventions: Discharge Summary Assessment (RN) Last Done: 10/19/18 11:16 DC Date/Time DO NOT enter until pt leaves facility: 10/19/18 11:37
== END 2018-10-19 11:37 | disposition home or self-care (01) | DRG 393 ==
LOC: ED 18:37 → 2S 21:30 → SUATTDRO 21:30 → 2S 22:15 → 2W 10-17 11:18
DX: Z88.8 Allergy status to other drugs, medicaments and biological substances; Z88.1 Allergy status to other antibiotic agents; K55.9 Vascular disorder of intestine, unspecified; I77.4 Celiac artery compression syndrome; Z88.2 Allergy status to sulfonamides; Z87.891 Personal history of nicotine dependence; J18.9 Pneumonia, unspecified organism; Z79.82 Long term (current) use of aspirin; N83.9 Noninflammatory disorder of ovary, fallopian tube and broad ligament, unspecified; Z85.3 Personal history of malignant neoplasm of breast; Z88.5 Allergy status to narcotic agent; I73.9 Peripheral vascular disease, unspecified; I12.9 Hypertensive chronic kidney disease with stage 1 through stage 4 chronic kidney disease, or unspecified chronic kidney disease; Z89.611 Acquired absence of right leg above knee; N18.3 Chronic kidney disease, stage 3 (moderate); A09 Infectious gastroenteritis and colitis, unspecified; J96.01 Acute respiratory failure with hypoxia

== ENCOUNTER 2018-12-05 08:18 | Inpatient (IN) ==
--- NOTE | 2018-12-05 05:21 | History & Physical Report ---
Date of Service December 05, 2018 History of Present Illness Primary Care Provider: Ahsan James MD [email or web address] Name: LIZZ VICK [facility] Number: [id number] : [id number] Date of Service: 11/19/2018 Ahsan James MD [address] [place] [address] James: We had the pleasure of seeing Ms. Lizz Vick in our vascular surgery outpatient clinic on 11/19/2018. As you are aware, she has a significant history of peripheral vascular disease, and with history of right lower extremity [id number] amputation after multiple failed revascularization attempts and significant symptoms on her right leg. She also has left-sided symptoms and presented in our clinic for repeat imaging of her left lower extremity. Additionally, she has had some chronic erythema of her right heel, and given her previous history was referred over earlier, given the concern of a possible infection of her right heel. She states that she is unable to sleep with her leg elevated and keeps her leg elevated essentially in the evenings approximately less than 6 hours per day. She states that just prior to coming into clinic this morning without any traumatic event, she had an approximately 6-cm curvilinear abrasion/tear of her left anterior tenorio. She is unsure of how this happened, but it was bleeding, and a dressing was put on at home prior to being evaluated. She states that she is able to walk with less symptoms with assistance since her amputation, but primarily uses a walker and does limited exercise secondary to her mobility. The repeat ultrasound performed in our clinic showed her to have significant stenosis of 50-75% of the distal common femoral artery and the superficial femoral artery through her distal thigh. There was greater than 75% stenosis of her popliteal, but her profunda was patent without any occlusion. She had monophasic waveforms in her anterior tibial with occlusion of her posterior tibial with distal reconstitution and monophasic waveforms. Her left-sided ankle-brachial index was 0.43, and they were unable to get adequate toe signals. PHYSICAL EXAMINATION: She is resting comfortably in her wheelchair in no acute distress. Her mucous membranes are moist. Her sclerae was anicteric. Her extraocular movements were intact. Her lungs were clear to auscultation bilaterally. Her heart was at 50 beats per minute and she had an end systolic ejection click. Her blood pressure is 156/54 in the right and 162/54 on the left. She had palpable femoral pulses bilaterally and no popliteal pulses or DP or PT on examination. Her left tenorio had circumferential chronic venostasis changes and there was a 6-cm curvilinear incision on the anterior aspect of her left tenorio that has been previously cleaned by nursing staff with significant edema around the incision. Additionally, on her more distal left medial tenorio, she had a 1-cm circular clear ulcer, likely from chronic venous stasis. She was diffusely neuromuscularly intact on examination. ASSESSMENT AND PLAN: Ms. Vick is an 88-year-old female with significant vascular disease status post AKA of her right leg with new changes on her left leg ultrasound showing severe stenosis of her left lower leg. PLAN: Given her known significant arterial disease requiring amputation of her right leg and the severity of disease on the ultrasound, we are highly suspicious that she will be unable to heel these blisters/wounds on her left leg. Given her risk factors, we recommend that she undergo an angiogram of her left leg now to see if there is a way to increase vascular flow to her left lower extremity and aid in the healing process prior to an urgent rescue therapy. With that in mind, we will schedule her for a left lower extremity angiogram with possible interventions. Should she not have an endovascular procedure that is reasonable, she will require a detailed discussion and planning for any further therapeutic intervention. #[id number] I saw and evaluated the patient. Discussed with the resident and agree with the resident's findings and plan as documented in the resident's note. Signature Line Electronic Signature on File CC: Ahsan James MD [address] [place] [address] [address] [facility] [address] * Electronically Reviewed/Signed by: Glenn Ernst MD Author Signature Dt/Tm:11/24/2018 12:52 PM Resident Division of General Surgery Electronically Reviewed/Signed by: Krish Smith MD Cosigner Signature Dt/Tm: 11/20/2018 09:24 AM Manager Technical Services Rafael Tolliver [facility] [place] [place] [address] DASIA /STUART Result Type: . Date of Service: November 19, 2018 00:00 EDT Authorization Status: Final Subject: History & Physical Letter Author or Import Date: MD Sujata, Glenn Chavarria on November 19, 2018 10:52 EDT Verified By: MD Smith Eugene J on November 20, 2018 09:24 EDT Encounter info: [id number], [facility] SC07, Clinic, 11/19/2018 - 11/19/2018 Contributor system: [id number] Allergies Allergy/AdvReac Type Severity Reaction Status Date / Time Sulfa (Sulfonamide Allergy Intermediate RASH Verified 12/03/18 13:59 Antibiotics) morphine Allergy Unknown see notes Verified 12/03/18 13:59 piperacillin [From Zosyn] AdvReac Intermediate Difficulty Verified 12/03/18 13:59 Breathing tazobactam [From Zosyn] AdvReac Intermediate Difficulty Verified 12/03/18 13:59 Breathing codeine AdvReac Mild ABD CRAMPS Verified 12/03/18 13:59 Home Medications Home Medications Medication Instructions Recorded Confirmed Type Restasis 1 drp OPB Q12H 10/15/18 12/03/18 History anastrozole 1 mg PO QPM 10/15/18 12/03/18 History aspirin 81 mg PO QPM 10/15/18 12/03/18 History clonidine HCl 0.2 mg PO BID 10/15/18 12/03/18 History furosemide 20 mg PO QAM 10/15/18 12/03/18 History gabapentin 200 mg PO BID 10/15/18 12/03/18 History gabapentin 300 mg PO HS 10/15/18 12/03/18 History losartan 100 mg PO QAM 10/15/18 12/03/18 History metoprolol tartrate 75 mg PO Q12H 10/15/18 12/03/18 History levofloxacin 750 mg PO DAILY #1 tab 10/19/18 12/03/18 Rx Past Med/Surg History Medical History Acute kidney injury Breast cancer CKD (chronic kidney disease) Cellulitis Empyema HTN (hypertension) Surgical History S/P appendectomy S/P cholecystectomy Status post lower limb amputation Social History Preferred Language: [place]an Communication Ability: Effective Telephone Services Sales Representative Required: No Beliefs That Will Affect Care: None Current Living Situation: Spouse Current Living Situation Comment: villages Other Information That Helps Us Care for You: No Feels Safe at Home: Yes Safety Concerns: Feels Safe At This Time Smoking Status: Never smoker Second Hand Exposure: No Hx Alcohol Use: Yes Alcohol type: wine Hx Substance Use: No Review of Systems All systems reviewed & are unremarkable except as noted in HPI & below
[~2018-12-05 08:18] MED LIST changes: -ANAS1TAB59 PO; -ASPI81TA28 PO; +CEFAZOLIN 1000MG 1,000 MG/7.5 ML SYR IV SCH; -CLON0.2T PO; -CYCL0.052 OPB; -FURO-85 PO; -GABA-112 PO; -IPRA0.06; -LOSA100T65 PO; -METO50TA17 PO; +SODIUM CHLORIDE 0.9% 1000ML 1,000 ML IV SCH; +SODIUM CHLORIDE 0.9% 1000ML IV SCH
[2018-12-05 09:17] LABS: Creatinine Clr Calc Pharmacy 23.9 ml/min; Est GFR (African American) 45.9; Est GFR (Non-African American) 39.6
--- NOTE | 2018-12-05 11:54 | History & Physical Bridge Note ---
Date of Service December 05, 2018 History & Physical Bridge Note I have examined the patient, reviewed the History & Physical and in the interval since the performance of the History & Physical I have noted the following changes of clinical significance: no changes noted
--- NOTE | 2018-12-05 11:54 | Pre Anesthesia Assessment ---
Date of Service December 05, 2018 Pre Sedation Assessment Vital Signs Temp Pulse Resp BP Pulse Ox 12/05/18 08:48 36.5 C 57 L 16 177/60 H 98 Cardiovascular RRR, no murmur, no edema Respiratory normal respiratory effort, lungs clear to auscultation Pre-Sedation Airway Assessment Smoking Status: Never smoker Hx Sleep Apnea: No Short, Thick Neck: No Thyromental Distance: > or= 3.5 Finger Breadths Oral Cavity: + WNL Mallampati Class: II ASA: ASA3 NPO Status Date of Last Intake of Fluids: 12/05/18 Time of Last Intake of Fluids: 06:00 Date of Last Intake of Solid Food: 12/04/18 Time of Last Intake of Solid Foods: 17:00 Procedure Planning Contraindications for Sedation: none Current Medications Reviewed: Yes Notes The planned sedation has been discussed with the patient. Informed Consent was obtained. I have identified the patient, determined the appropriateness of sedation and have assessed the patient immediately prior to the procedure. All medicine(s) and interventions are by my order.
[2018-12-05] MEDS ORDERED: LIDOCAINE HCL 1% 20 ML VIAL ONE (12:28)
[2018-12-05] MEDS ORDERED: HEPARIN SOD (PORCINE) 1000 UNIT/ML 10 ML VIAL ONE (12:28)
[2018-12-05] MEDS ORDERED: fentaNYL citrate 100 MCG/2 ML VIAL ONE (12:29)
[2018-12-05] MEDS ORDERED: MIDAZOLAM HCL 1 MG/ML 2ML VIAL ONE (12:29)
[2018-12-05] MEDS ORDERED: VISIPAQUE IV PRN (14:09)
[2018-12-05] MEDS ORDERED: OXYCODONE/ACETAMINOPHEN 5mg/325mg TAB PO PRN (14:10)
--- NOTE | 2018-12-05 14:12 | Procedure Note ---
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 Post-Op Diagnosis: Left Infrapopliteal Artery Occlusion with Ulcer Procedure Operation Date: 12/05/18 11:10 Actual Procedures p Left Lower Extremity Angiogram, Ultasound Localization of Right Femoral Artery, Mechanical Closure of Right Femoral Artery, Moderate Sedation 1300(Right) - Krish Smith MD Surgeon Krish Smith MD Hasher Operator Ning Wilson MD Estimated Blood Loss 20 Findings Consistent with Post-Op Diagnosis Specimens none Drains none Anesthesia Type RN Sedation Complications none Disposition Accompanied Patient To Recovery: No Disposition: Recovery Room I attest to the content of the Intraoperative Record and any orders documented therein. Any exceptions are noted below.
[2018-12-05] MEDS ORDERED: SODIUM CHLORIDE 0.9% 1000ML 1,000 ML IV SCH (14:15)
--- NOTE | 2018-12-05 14:17 | Post Operative Brief Note ---
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
--- NOTE | 2018-12-05 14:20 | Procedure Note ---
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 Post-Op Diagnosis: Left Infrapopliteal Artery Occlusion with Ulcer Procedure Operation Date: 12/05/18 11:10 Actual Procedures p Left Lower Extremity Angiogram, Ultasound Localization of Right Femoral Artery, Mechanical Closure of Right Femoral Artery, Moderate Sedation 1300(Right) - Krish Smith MD Surgeon Krish Smith MD Body Make Up Artist Ning Wilson MD Estimated Blood Loss 20 Findings Consistent with Post-Op Diagnosis Specimens None Drains None Anesthesia Type RN Sedation Complications none Disposition Accompanied Patient To Recovery: No Description of Procedure With the patient in the supine position under conscious sedation, the lower abdomen and bilateral groins were prepped and draped in the sterile fashion. The patient was identified and a timeout performed. The right common femoral artery was punctured percutaneously under ultrasound guidance, and a 5-Ukrainian sheath was initially placed. We used an angled glidewire and a Rim catheter to go up and over the aortic bifurcation, and selective angiogram of the left lower extremity was performed, which revealed extensive atherosclerotic calcification throughout the extremity. There were [id number] stenoses in the common femoral, superficial femoral, and popliteal arteries. The anterior tibial artery and posterior tibial arteries were occluded throughout. The proximal peroneal artery was patent, however approximately 3-4cm from its origin, there was an occlusion of approximately 5cm in length, with reconstitution via collaterals. The peroneal artery gave runoff to the ankle, along with several collaterals. A quick cross catheter was used to access the superficial femoral artery, and the angled glidewire was advanced down to the proximal peroneal. We were unable to cross the occlusion, so we then used a Command ES 0.014 wire. With several attempts, we were able to get about 90% through the occluded peroneal segment, but were not able to cross it completely. All wires and catheters were removed. We then shot an angiogram of our right groin access site. This revealed that our entry site was in the common femoral artery, and no extravasation was noted. The sheath was removed, and the arteriotomy was closed using a Starclose SE. Pressure was held over the right groin for 5 minutes. The patient tolerated the procedure well, however while pressure was being held after Starclose deployment she began complaining of right lower quadrant abdominal pain. No hematoma or active extravasation was noted, and her vital signs remained stable. The patient left the operation room in satisfactory condition and tolerated the procedure well. All needle and sponge counts were correct at the end of the procedure. Dr. Smith was present and scrubbed for the entire procedure. I attest to the content of the Intraoperative Record and any orders documented therein. Any exceptions are noted below.
--- NOTE | 2018-12-05 14:25 | Post Anesthesia Assessment ---
Date of Service December 05, 2018 Post Sedation Assessment Vital Signs Temp Pulse Pulse Resp BP BP Pulse Ox 12/05/18 14:17 58 L 18 184/74 H 96 12/05/18 14:12 64 16 187/72 H 100 12/05/18 14:10 56 L 16 184/67 H 100 12/05/18 14:05 52 L 16 176/59 H 100 12/05/18 14:00 43 L 12 174/42 H 100 12/05/18 13:55 46 L 16 175/45 H 100 12/05/18 13:50 44 L 16 185/50 H 100 12/05/18 13:45 47 L 16 167/48 H 100 12/05/18 13:40 47 L 16 184/48 H 100 12/05/18 13:35 50 L 16 169/47 H 100 12/05/18 13:30 46 L 16 157/45 H 100 12/05/18 13:25 48 L 12 150/45 H 100 12/05/18 13:20 47 L 17 153/41 H 100 12/05/18 13:15 48 L 16 138/45 L 100 12/05/18 13:10 47 L 16 170/44 H 99 12/05/18 13:05 50 L 12 147/47 H 100 12/05/18 13:00 52 L 16 211/62 H 100 12/05/18 12:55 52 L 12 211/68 H 100 12/05/18 12:52 79 12 209/65 H 100 12/05/18 08:48 36.5 C 57 L 16 177/60 H 98 Recovery Score Activity: Moves 4 extremities Respiration: Deep Breath/Cough Circulation: +/-20% PreAnes Value Consciousness: Fully Awake Oxygen Saturation: > 92% On Room Air Post Anesthesia Score: 10 Discharge Sedation Level of Care: Fast Track Phase II Post Sedation Plan On clinical assessment, the patient appears to have tolerated the sedation without complications. Patient is recovering as anticipated. Patient will continue to be monitored by nursing and may be discharged when sedation discharge criteria are met per below protocol. Upon Completions of procedure and additional 15 minutes continue every 5 minute vital signs and the P.A.R. score; then discharge to a Phase I or Fast Track to Phase II per the following guidelines: * Discharge Patient to appropriate Phase II area if PAR is 8 or greater or return to pre- procedure baseline. The post - procedure orders will be as directed. * If PAR score is less than 8 or not return to pre-procedure baseline then patient will follow Phase I monitoring till PAR is reached for Phase II. The Phase I may be done in procedure room or may call to secure a Phase I area. * If naloxone or flumazenil are used for reversal, hold in Phase I for continued monitoring from when last reversal dose was given for a minimum of 60 minutes or longer pending the nurse and/or physician discretion of patient condition before discharge to Phase II. Please call the Sedation Physician to re-evaluate and complete post-note for discharge to Phase II area. Do NOT discharge from procedure sedation or Phase 1 until post- sedation evaluation note is complete by procedure /sedation MD Sedation Discharge Instructions to be given to the patient at discharge to home.
[2018-12-05] MEDS ORDERED: ICU PROTOCOL FOR HYPERGLYCEMIA PRN (14:59)
--- NOTE | 2018-12-05 15:08 | CT Scan Report ---
ABDOMEN AND PELVIS CT WITHOUT CONTRAST CT DOSE: 378.66 mGycm HISTORY: Acute generalized abdominal pain. A Code was called on the patient after the completion of t he scan. abdominal pain post angio TECHNIQUE: Multiaxial CT images of the abdomen and pelvis were performed without contrast. A dose lo wering technique was utilized adhering to the principles of ALARA. COMPARISON STUDY: CTA abdomen and pelvis 10/15/2018, lower extremity digital subtraction angiography i mages of same day FINDINGS: Minimal subsegmental bibasilar opacities are suggestive of probable atelectasis. There is no pneumato sis or pneumoperitoneum. Imaged inferior cardiac chambers appear unremarkable. Spleen, pancreas, and adrenal glands are unremarkable. Mild generalized pancreatic atrophy. Cholecystectomy with unchanged mild biliary ductal dilation, likely on a postsurgical basis. Retained contrast noted within the bila teral renal collecting systems and ureters and also seen within the dependent urinary bladder lumen. 3.6 cm cystic lesion of the left adnexum redemonstrated. Calcified fibroid of the uterine fundus is u nchanged. There is extensive calcified plaque of the abdominal aorta and branch vessels. Decreased dimension of the IVC. There is a large retroperitoneal hematoma which extends from the right inguinal distributio n about the common femoral artery to the infrahepatic distribution measuring to 21.7 cm in length. Th is results in rightward medial displacement of the right hemicolon. Evaluation is limited without the use of IV contrast to assess for active extravasation. Surgical clips and deep tissue air noted abou t the right inguinal tissues compatible with recent vascular intervention. Colonic diverticulosis wit hout acute diverticulitis. No bowel obstruction. Previously described area of wall thickening noted a bout the distal transverse colon is not appreciated on today's study. IMPRESSION: 1. Large retroperitoneal hematoma extends from the right inguinal distribution to the level of the ri ght kidney measuring up to 21.7 cm in length. This results in medial displacement of the right hemico luis felipe and encases the right iliac and common femoral arteries. There is limited evaluation without the use of IV contrast however acute vascular injury is suspected. 2. Decreased diameter of the IVC suggests hypovolemia. 3. Additional findings as above. Findings were discussed with Dr. Schmitz on 12/05/2018 at 3:04 PM Electronically signed by: Enrique Weaver M.D. 12/05/2018 3:06 PM
[2018-12-05 15:43] LABS: Basophils # (auto) 0.04 K/uL (0-0.2); Basophils % (auto) 0.6 %; Eosinophils # (auto) 0.31 K/uL (0-0.5); Eosinophils % (auto) 4.4 %; Hematocrit (blood only) 27.5 % (37-47); Hemoglobin 9.2 g/dL (12.0-16.0); Immature Granulocytes # (auto) 0.02 K/uL (0.00-0.02); Immature Granulocytes % (auto) 0.3 %; Lymphocytes # (auto) 2.72 K/uL (1.2-3.4); Lymphocytes % (auto) 38.4 %; Mean Corpuscular Volume 89.3 fL (80-100); Mean Platelet Volume 10.3 fL (7.4-10.4); Monocytes # (auto) 0.44 K/uL (0.11-0.59); Monocytes % (auto) 6.2 %; Neutrophils # (auto) 3.56 K/uL (1.4-6.5); Neutrophils % (auto) 50.1 %; Platelet Count 215 K/uL (130-400); RDW Standard Deviation 42.1 fL (36.4-46.3); Red Blood Count 3.08 M/uL (4.2-5.4); White Blood Count 7.09 K/uL (4.8-10.8)
[2018-12-05 15:45] LABS: Mean Corpuscular Hgb Conc 33.5 g/dL (32-36)
--- NOTE | 2018-12-05 15:48 | Critical Care Consultation ---
Date of Consultation December 05, 2018 Assessment & Plan (1) Admitted to intensive care unit: Reason critically ill: Orlin Hager code blue for unresponsiveness and concerns for hemorrhage was transferred to ICU for critical care management. Neuro: Decreased responsiveness. 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 retroperitoneal hematoma vs. DIC ordered PT, INR, PTT, Fibrinogen level for DIC workup CBC ordered now, followed by H&H 4 hours later, followed by H&H q6h Monitor hemodynamics ID: No current concerns for infectious process; did receive operative ancef Lines: PIV: 20G in left AC CVL left IJ DVT ppx: chemical contraindicated bc of acute blood loss SCD avoided bc of severe PAD, do not want to restrict blood flow to limb Resuscitation status Full Code Supervising Physician Co-Signing Physician Notes Dr. Farris was resident physician during care of patient. I separately evaluated patient for michelle portions of the history and the exam. I was present during the critical portion of medical decision making, and I discussed the case with the resident. I generally agree with the findings and plan. Responded to JENI CARROLL, known retroperitoneal/extraperitoneal bleeding was immediately seen by Dr. Smith. Central venous access placed emergently, since patient has received blood she has improved her mental status significantly feels much better. We will continue to trend her hemoglobin and hematocrit and any other signs for further bleeding. I have personally spent 40 minutes of critical care time in the direct management of this patient. This is a life/limb threatening event. This includes time spent evaluating patient, direct bedside care, chart review, placing orders, interpretation of diagnostic studies, discussion with consultants, patient, and/or family members regarding treatment decisions, as well as other required patient management activities. This time is exclusive of all separately billable procedures, and teaching time and separate from and in addition to any other critical care service time. History of Present Illness Reason for Consultation: Jeni Carroll Requesting Physician: Krish Smith MD Attending Physician: Krish Smith MD History of Present Illness Orlin Hager is a 88 y/o female who presented to our service for code blue/unresponsiveness. Patient was here for vascular surgery of left popliteal artery in setting of severe PAD. Post procedure, she complained of RLQ abdominal pain. She was sent to CT to evaluate for retroperitoneal hematoma. Code blue was paged overhead while patient was in CT scan. 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 She was in CT when it was reported she went unresponsive with shallow respirations. Patient did not require CPR and had pulse. There were concerns for possible retroperitoneal bleed or DIC. Allergies Allergy/AdvReac Type Severity Reaction Status Date / Time Sulfa (Sulfonamide Allergy Intermediate RASH Verified 12/05/18 08:41 Antibiotics) morphine Allergy Unknown see notes Verified 12/05/18 08:41 piperacillin [From Zosyn] AdvReac Intermediate Difficulty Verified 12/05/18 08:41 Breathing tazobactam [From Zosyn] AdvReac Intermediate Difficulty Verified 12/05/18 08:41 Breathing codeine AdvReac Mild ABD CRAMPS Verified 12/05/18 08:41 Home Medications Home Medications Medication Instructions Recorded Confirmed Type Restasis 1 drp OPB Q12H 10/15/18 12/05/18 History anastrozole 1 mg PO QPM 10/15/18 12/05/18 History aspirin 81 mg PO QPM 10/15/18 12/05/18 History clonidine HCl 0.2 mg PO BID 10/15/18 12/05/18 History furosemide 20 mg PO QAM 10/15/18 12/05/18 History gabapentin 200 mg PO BID 10/15/18 12/05/18 History gabapentin 300 mg PO HS 10/15/18 12/05/18 History losartan 100 mg PO QAM 10/15/18 12/05/18 History metoprolol tartrate 75 mg PO Q12H 10/15/18 12/05/18 History Patient History Medical History Acute kidney injury Breast cancer CKD (chronic kidney disease) Cellulitis Empyema HTN (hypertension) Surgical History S/P appendectomy S/P cholecystectomy Status post lower limb amputation Social History Preferred Language: Nigerian Communication Ability: Effective Dental Insurance Biller Required: No Beliefs That Will Affect Care: None Current Living Situation: Spouse Current Living Situation Comment: villages Other Information That Helps Us Care for You: No Feels Safe at Home: Yes Safety Concerns: Feels Safe At This Time Smoking Status: Never smoker Second Hand Exposure: No ; Hx Alcohol Use: Yes Alcohol type: wine Hx Substance Use: No Review of Systems Review of Systems: Unobtainable due to reduced consciousness Physical Exam Constitutional: + acute distress, + ill appearing, + thin and + frail appearing Neck: normal visual inspection and trachea midline Respiratory: no respiratory distress Auscultation: + diminished lung sounds very poor respiratory effort Cardiovascular: Rate/Rhythm: regular rhythm and + bradycardic Musculoskeletal: right aka Skin: + pallor Results & Data Vital Signs (Past 12 Hours) Vital Signs Temp Pulse Pulse Resp BP BP Pulse Ox 12/05/18 14:17 58 L 18 184/74 H 96 12/05/18 14:12 64 16 187/72 H 100 12/05/18 14:10 56 L 16 184/67 H 100 12/05/18 14:05 52 L 16 176/59 H 100 12/05/18 14:00 43 L 12 174/42 H 100 12/05/18 13:55 46 L 16 175/45 H 100 12/05/18 13:50 44 L 16 185/50 H 100 12/05/18 13:45 47 L 16 167/48 H 100 12/05/18 13:40 47 L 16 184/48 H 100 12/05/18 13:35 50 L 16 169/47 H 100 12/05/18 13:30 46 L 16 157/45 H 100 12/05/18 13:25 48 L 12 150/45 H 100 12/05/18 13:20 47 L 17 153/41 H 100 12/05/18 13:15 48 L 16 138/45 L 100 12/05/18 13:10 47 L 16 170/44 H 99 12/05/18 13:05 50 L 12 147/47 H 100 12/05/18 13:00 52 L 16 211/62 H 100 12/05/18 12:55 52 L 12 211/68 H 100 12/05/18 12:52 79 12 209/65 H 100 12/05/18 08:48 36.5 C 57 L 16 177/60 H 98 PG Care Time/CCT Total # of Minutes Spent Total Time Spent with Patient: Total time spent is greater than 50% in coordination of care (as documented) at patient's floor/unit and/or counseling patient: Resident Activity Tracking Resident Involvement: Resident Care Provided Care Provided: Adult Hospital Medicine (ICU)
--- NOTE | 2018-12-05 15:49 | XRay Report ---
XR chest 1V portable CLINICAL HISTORY: s/p left IJ central line placement COMPARISON STUDY: 10/15/2018 FINDINGS: The heart is borderline enlarged. There is radiographic evidence of emphysema. There is per sistent right hilar fullness. There is no acute parenchymal consolidation. There is blunting of the r ight lateral costophrenic angle. There is been interval insertion of a left internal jugular central venous catheter. The tip projects over the left brachiocephalic vein in the midline. There is no pneu mothorax.[ IMPRESSION: Interval placement of a left internal jugular central venous catheter. The tip terminates in the midline. There is no pneumothorax. Electronically signed by: Gabino Weinberg M.D. 12/05/2018 3:48 PM
--- NOTE | 2018-12-05 15:53 | Procedure Note ---
Procedure Note Date of Service December 05, 2018 Note INTERNAL JUGULAR CENTRAL LINE PROCEDURE NOTE: Procedure: Internal Jugular Central Line Placement Attending: Dr. Dwaine Schmitz Provider: HELENA Humphreys Indication: Central Drug Administration, Poor Venous Access, Multiple Lab Draws Necessary, etc. Anesthesia: Lidocaine 1% Line was placed emergently following code event A time-out was completed verifying correct patient, procedure, site, positioning, and implants(s) or special equipment if applicable. Patients left neck was cleansed and draped in the typical sterile fashion using Chloraprep. The Internal Jugular Vein and Carotid Artery were identified using ultrasound. The superficial tissue was anesthetized using 5 mL of 1% lidocaine without epinephrine under direct visualization with the ultrasound. After adequate anesthetization was achieved, the Internal Jugular vein was cannulated under direct ultrasound guidance using an introducer needle on a syringe. Good venous blood return was maintained prior to removal of syringe from introducer needle. Using Seldinger Technique, a guide wire was advanced through the introducer needle without resistance. The introducer needle was removed and ultrasound images were obtained of the guide wire within the Internal Jugular Vein and saved to the patients medical record. A small incision was made in penetrating fashion at the guide wire insertion site utilizing an 11 blade scalpel. The dilator was advanced to the vessel without resistance. The dilator was exchanged for the triple lumen catheter which was advanced into the vessel without resistance. The guide wire was removed intact from the catheter without issue. Claves were placed on each catheter tip with confirmation of good blood flow from each lumen. Each port was easily flushed with sterile saline. The catheter was placed at 15 cm and sutured in place. BioPatch was applied to the catheter and a sterile Tegaderm dressing was applied over the catheter with careful attention to sterility. Patient tolerated procedure well. No immediate complications were met. Post procedure x-ray was completed, placement was appropriate and no pneumothorax was noted. Images obtained are saved for permanent record Procedural Ultrasound Guidance: Procedure Date: 12/05/2018 Indication: Difficult access/emergent code event/rapid transfusions Attending: Dr. Dwaine Schmitz Provider: HELENA Humphreys Artery AND Vein visualized: Yes Compressible Vein: Yes Guidewire or Short Catheter seen in vein prior to dilation: Yes Line confirmed in Vein with ultrasound: Yes Images obtained are saved for permanent record. Supervising Physician Co-Signing Physician Notes I was present and assisted during the entire procedure Coding CPT Codes Tubes, Drains, and Vasc Access - Tubes, Drains, and Vasc Access: Insertion Of Non-tunneled Catheter Age 5 Yrs> ([id number]) Tubes, Drains, and Vasc Access - Tubes, Drains, and Vasc Access: Ultrasound Guidance For Vascular ([id number])
--- NOTE | 2018-12-05 15:54 | Communication Note ---
Date of Service: December 05, 2018 Patient was complaining of right lower abdominal pain post procedure. She was sent to CT to evaluate for a retroperitioneal hematoma. She became lethargic and unresponsive but never lost her pulse or breathing. She was resusitated with fluids and blood. CT scan did show a retroperitoneal hematoma USN of groin did not show any active bleeding from the puncture site. She was transferred to the ICU for monitoring and treatment.
[2018-12-05 15:55] LABS: Base Excess VBG -0.7 mEq/L; Oxygen Saturation VBG 65.3 %; pH VBG 7.27 (7.36-7.41)
[2018-12-05 16:00] LABS: Albumin Level 2.1 gm/dl (3.4-5.0); BUN Creatinine Ratio 25.6 (10-20); Calcium 7.6 mg/dl (8.5-10.1); Creatinine Clr Calc Pharmacy 29.8 ml/min; Est GFR (Non-African American) 51.8
[2018-12-05 16:02] LABS: Albumin Globulin Ratio 0.7 (0.9-2); Bilirubin,Total 0.4 mg/dl (0.2-1); Globulin 2.9 gm/dl (2.5-4.0)
[2018-12-05 16:10] LABS: Fibrinogen 195 mg/dl (184-400); INR 1.2 (0.9-1.1); Partial Thromboplastin Ratio 1.6; Partial Thromboplastin Time 43.4 Seconds (21.0-31.0); Prothrombin Time 12.4 Seconds (9.0-12.0)
[2018-12-05] MEDS ORDERED: HydrALAZINE HCL 20 MG/ML VIAL IV ONE (17:48)
[2018-12-05] MEDS: NORMOSOL-R 1,000 ML IV SCH (17:49)
[2018-12-05] MEDS: cloNIDine HCl 0.1 MG TAB PO SCH (17:54)
[2018-12-05] MEDS ORDERED: ACETAMINOPHEN 325 MG TAB PO PRN (17:58)
[2018-12-05] MEDS ORDERED: NITROGLYCERIN/D5W 100MCG/ML 250 ML IV SCH (18:15)
[2018-12-05] MEDS: ONDANSETRON INJ 2 MG/ML 2 ML VIAL IV PRN (18:25)
[2018-12-05] MEDS: ONDANSETRON INJ 2 MG/ML 2 ML VIAL ONE ×2 (18:25→19:05)
[2018-12-05] MEDS ORDERED: CARVEDILOL 6.25 MG TAB PO SCH (21:00)
[2018-12-06] MEDS ORDERED: RESTASIS: ORDER AWAITING ACTION SCH
[2018-12-06 01:17] LABS: Hematocrit (blood only) 35.6 % (37-47); Hemoglobin 11.9 g/dL (12.0-16.0)
[2018-12-06 05:16] LABS: Basophils # (auto) 0.02 K/uL (0-0.2); Basophils % (auto) 0.1 %; Hematocrit (blood only) 35.1 % (37-47); Hemoglobin 11.8 g/dL (12.0-16.0); Immature Granulocytes # (auto) 0.04 K/uL (0.00-0.02); Immature Granulocytes % (auto) 0.3 %; Lymphocytes # (auto) 1.31 K/uL (1.2-3.4); Lymphocytes % (auto) 8.5 %; Mean Corpuscular Hgb Conc 33.6 g/dL (32-36); Mean Corpuscular Volume 87.8 fL (80-100); Mean Platelet Volume 10.2 fL (7.4-10.4); Monocytes # (auto) 0.41 K/uL (0.11-0.59); Monocytes % (auto) 2.7 %; Neutrophils # (auto) 13.63 K/uL (1.4-6.5); Neutrophils % (auto) 88.4 %; Platelet Count 184 K/uL (130-400); RDW Coefficient of Variation 14.2 % (11.5-14.5); RDW Standard Deviation 45.8 fL (36.4-46.3); White Blood Count 15.41 K/uL (4.8-10.8)
[2018-12-06 05:25] LABS: INR 1.1 (0.9-1.1); Partial Thromboplastin Ratio 0.9; Partial Thromboplastin Time 23.2 Seconds (21.0-31.0); Prothrombin Time 11.5 Seconds (9.0-12.0)
[2018-12-06] MEDS: NORMOSOL-R 1,000 ML IV SCH ×2 (05:45→18:16)
[2018-12-06] MEDS: ONDANSETRON INJ 2 MG/ML 2 ML VIAL IV PRN ×3 (05:45→20:01)
[2018-12-06 05:49] LABS: BUN Creatinine Ratio 30.2 (10-20); Calcium 7.7 mg/dl (8.5-10.1); Creatinine Clr Calc Pharmacy 26.5 ml/min; Est GFR (African American) 52.1; Magnesium 2.1 mg/dl (1.8-2.4); Phosphorus 4.4 mg/dl (2.5-4.9); Potassium 4.4 mmol/L (3.5-5.1)
[2018-12-06] MEDS: cloNIDine HCl 0.1 MG TAB PO SCH ×2 (06:22→20:21)
--- NOTE | 2018-12-06 08:31 | Surgery Progress Note ---
Date of Service December 06, 2018 Assessment & Plan (1) Retroperitoneal hematoma: At this point she is stable with no further bleeding appreciated. We will transfer to floor continue observation. Subjective The patient is awake and alert. She does complain of some nauseousness. Her pain is improved from yesterday but still has some discomfort in the right lower quadrant. Her only other complaint is slight discomfort in the bottom of her left foot which occurs when she is in bed for prolonged periods of time. Physical Exam Physical Exam: Vital signs are stable. She does have mild abdominal tenderness right lower quadrant. The abdomen is soft. There is been no bleeding from the groin. There is no changes in her vascular exam. Results & Data Vital Signs (Past 12 Hours) Vital Signs Temp Pulse Resp BP Pulse Ox 12/06/18 06:45 88 23 136/38 L 95 12/06/18 06:30 89 23 159/42 H 94 12/06/18 06:15 82 22 139/40 L 93 12/06/18 06:00 86 20 135/43 L 94 12/06/18 05:45 87 25 H 134/44 L 94 12/06/18 05:30 87 26 H 135/43 L 94 12/06/18 05:16 87 19 136/38 L 94 12/06/18 05:00 88 28 H 133/45 L 94 12/06/18 04:45 85 23 139/45 L 93 12/06/18 04:30 87 21 128/45 L 93 12/06/18 04:15 85 23 129/42 L 94 12/06/18 04:00 37.2 C 86 21 124/43 L 93 12/06/18 03:45 83 27 H 125/36 L 93 12/06/18 03:30 85 21 130/45 L 93 12/06/18 03:15 85 23 126/44 L 94 12/06/18 03:00 82 24 119/37 L 93 12/06/18 02:45 84 29 H 126/39 L 94 12/06/18 02:30 81 23 125/41 L 93 12/06/18 02:15 81 23 122/41 L 93 12/06/18 02:00 82 22 120/37 L 93 12/06/18 01:45 80 21 124/40 L 93 12/06/18 01:30 80 25 H 116/40 L 93 12/06/18 01:15 80 26 H 127/39 L 94 12/06/18 01:00 77 27 H 114/35 L 94 12/06/18 00:45 73 20 115/33 L 94 12/06/18 00:30 74 24 114/34 L 94 12/06/18 00:15 71 27 H 117/33 L 94 12/06/18 00:00 36.9 C 70 23 110/34 L 94 12/05/18 23:45 69 19 111/33 L 94 12/05/18 23:30 69 21 116/35 L 95 12/05/18 23:15 68 22 110/33 L 94 12/05/18 23:00 69 21 114/32 L 94 12/05/18 22:59 70 25 H 94 12/05/18 22:45 36.7 C 67 21 112/32 L 94
--- NOTE | 2018-12-06 08:46 | Critical Care Progress Note ---
Date of Service December 06, 2018 Assessment & Plan (1) Admitted to intensive care unit: Reason critically ill: Orlin Madan code blue for unresponsiveness and concerns for hemorrhage was transferred to ICU for critical care management. Okay to transfer to medical floor Neuro: Alert Ox3, appears back to neuro baseline. 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 Monitor hemodynamics Pulm supplemental O2 target 94% monitor pulse ox GI: RLQ pain improved retroperitoneal hematoma Renal/Lytes Hx of CKD stage 3 creatinine WNL Normosol @ 85mL/hr : Kwon - yes Endo No hx of DM or thyroid dysfunction Heme Had two units pRBC yesterday for concerns of acute blood loss with retroperitoneal hematoma ordered PT, INR, PTT, Fibrinogen level for DIC workup CBC ordered now, followed by H&H 4 hours later, followed by H&H q6h Monitor hemodynamics ID: No current concerns for infectious process; did receive operative ancef Lines: PIV: 20G in left AC CVL left IJ removed today DVT ppx: no current chemical bc of retroperitoneal hematoma SCD avoided bc of severe PAD, do not want to restrict blood flow to limb Resuscitation status Full Code Supervising Physician Co-Signing Physician Notes Dr. Farris was resident physician during care of patient. I separately evaluated patient for michelle portions of the history and the exam. I was present during the critical portion of medical decision making, and I discussed the case with the resident. I generally agree with the findings and plan. Retroperitoneal hematoma after vascular evaluation, received 2 units packed red blood cells H&H has remained stable. We will discontinue the central line and she has been transferred out of the ICU by Dr. Smith. Critical care will sign off. Subjective Orlin had no acute events reported overnight. She is having some mild nausea without vomiting. She reports that her RLQ pain has improved. No chest pains or shortness of breath. Review of Systems Review of Systems: All systems reviewed & are unremarkable except as noted in HPI & below Physical Exam Constitutional: + ill appearing, + thin and + frail appearing Neck: normal visual inspection and trachea midline Respiratory: no respiratory distress Auscultation: + diminished lung sounds Cardiovascular: Rate/Rhythm: regular rhythm and + bradycardic Gastrointestinal (Abdomen): Percussion/Palpation: + abdomen tender (RLQ w/o rebound) and abdomen soft; no guarding Musculoskeletal: Head/Neck/Chest: normocephalic and head atraumatic right aka Skin: no rashes, warm and dry Neurologic: moves all extremities and awake Psychiatric: A+Ox3, euthymic affect Results & Data Vital Signs (Past 12 Hours) Vital Signs Temp Pulse Pulse Pulse Resp BP BP 12/06/18 08:00 37.2 C 88 20 L 20 100/37 L 12/06/18 06:45 88 23 136/38 L 12/06/18 06:30 89 23 159/42 H 12/06/18 06:15 82 22 139/40 L 12/06/18 06:00 86 20 135/43 L 12/06/18 05:45 87 25 H 134/44 L 12/06/18 05:30 87 26 H 135/43 L 12/06/18 05:16 87 19 136/38 L 12/06/18 05:00 88 28 H 133/45 L 12/06/18 04:45 85 23 139/45 L 12/06/18 04:30 87 21 128/45 L 12/06/18 04:15 85 23 129/42 L 12/06/18 04:00 37.2 C 86 21 124/43 L 12/06/18 03:45 83 27 H 125/36 L 12/06/18 03:30 85 21 130/45 L 12/06/18 03:15 85 23 126/44 L 12/06/18 03:00 82 24 119/37 L 12/06/18 02:45 84 29 H 126/39 L 12/06/18 02:30 81 23 125/41 L 12/06/18 02:15 81 23 122/41 L 12/06/18 02:00 82 22 120/37 L 12/06/18 01:45 80 21 124/40 L 12/06/18 01:30 80 25 H 116/40 L 12/06/18 01:15 80 26 H 127/39 L 12/06/18 01:00 77 27 H 114/35 L 12/06/18 00:45 73 20 115/33 L 12/06/18 00:30 74 24 114/34 L 12/06/18 00:15 71 27 H 117/33 L 12/06/18 00:00 36.9 C 70 23 110/34 L 12/05/18 23:45 69 19 111/33 L 12/05/18 23:30 69 21 116/35 L 12/05/18 23:15 68 22 110/33 L 12/05/18 23:00 69 21 114/32 L 12/05/18 22:59 70 25 H 12/05/18 22:45 36.7 C 67 21 112/32 L Pulse Ox 12/06/18 08:00 94 12/06/18 06:45 95 12/06/18 06:30 94 12/06/18 06:15 93 12/06/18 06:00 94 12/06/18 05:45 94 12/06/18 05:30 94 12/06/18 05:16 94 12/06/18 05:00 94 12/06/18 04:45 93 12/06/18 04:30 93 12/06/18 04:15 94 12/06/18 04:00 93 12/06/18 03:45 93 12/06/18 03:30 93 12/06/18 03:15 94 12/06/18 03:00 93 12/06/18 02:45 94 12/06/18 02:30 93 12/06/18 02:15 93 12/06/18 02:00 93 12/06/18 01:45 93 12/06/18 01:30 93 12/06/18 01:15 94 12/06/18 01:00 94 12/06/18 00:45 94 12/06/18 00:30 94 12/06/18 00:15 94 12/06/18 00:00 94 12/05/18 23:45 94 12/05/18 23:30 95 12/05/18 23:15 94 12/05/18 23:00 94 12/05/18 22:59 94 12/05/18 22:45 94 Resident Activity Tracking Resident Involvement: Resident Care Provided Care Provided: Adult Hospital Medicine (ICU)
[2018-12-06] MEDS ORDERED: FUROSEMIDE 20 MG TAB PO SCH ×2 (09:00→10:03)
[2018-12-06] MEDS ORDERED: METOPROLOL TARTRATE 50 MG TAB PO SCH ×2 (09:00)
[2018-12-06] MEDS ORDERED: LOSARTAN POTASSIUM 50 MG TAB PO SCH (09:00)
[2018-12-06] MEDS ORDERED: cloNIDine HCl 0.1 MG TAB PO SCH (10:03)
[2018-12-06] MEDS: GABAPENTIN 100 MG CAP PO SCH (12:16)
[2018-12-06] MEDS: RESTASIS: ORDER AWAITING ACTION SCH ×2 (15:17→23:20)
[2018-12-06] MEDS: METOPROLOL TARTRATE 50 MG TAB PO SCH (20:21)
[2018-12-06] MEDS ORDERED: ANASTROZOLE 1 MG TAB PO SCH (21:00)
[2018-12-06] MEDS ORDERED: ASPIRIN 81 MG ECTAB PO SCH (21:00)
[2018-12-06] MEDS ORDERED: GABAPENTIN 300 MG CAP PO SCH (21:00)
[2018-12-07] MEDS: NORMOSOL-R 1,000 ML IV SCH (05:25)
[2018-12-07 06:44] LABS: Hematocrit (blood only) 30.2 % (37-47); Hemoglobin 10.1 g/dL (12.0-16.0)
[2018-12-07] MEDS: RESTASIS: ORDER AWAITING ACTION SCH (08:00)
[2018-12-07] MEDS: GABAPENTIN 100 MG CAP PO SCH ×2 (08:01→12:25)
[2018-12-07] MEDS: cloNIDine HCl 0.1 MG TAB PO SCH (08:36)
[2018-12-07] MEDS: METOPROLOL TARTRATE 50 MG TAB PO SCH (08:37)
[2018-12-07] MEDS ORDERED: FUROSEMIDE 20 MG TAB PO SCH (09:00)
[2018-12-07] MEDS ORDERED: LOSARTAN POTASSIUM 50 MG TAB PO SCH (09:00)
--- NOTE | 2018-12-07 09:18 | Surgery Progress Note ---
Date of Service December 07, 2018 Assessment & Plan (1) Retroperitoneal hematoma: This point she is doing well and is back to baseline. We will send her home at this time. We will see her in the office in 2 weeks for follow-up. Subjective Patient is awake and alert. She is feeling much better. She has minimal abdominal pain. She is tolerating clear liquids but would reliant rather real food as she does not like the clear liquid diet. Physical Exam Physical Exam: On exam her abdomen is benign. There is a fullness in the right lower quadrant. No peritoneal signs are seen. Her vital signs are stable.Her hemoglobin is also stable. Results & Data Vital Signs (Past 12 Hours) Vital Signs Temp Pulse Resp BP BP Pulse Ox 12/07/18 07:00 36.8 C 78 16 147/65 H 95 12/06/18 23:13 36.7 C 73 16 113/61 95
--- NOTE | 2018-12-10 12:45 | Discharge Summary ---
Date of Service December 10, 2018 Admission HPI Per Admitting Provider We had the pleasure of seeing Ms. Luz Hager in our vascular surgery outpatient clinic on 11/19/2018. As you are aware, she has a significant history of peripheral vascular disease, and with history of right lower extremity [id number] amputation after multiple failed revascularization attempts and significant symptoms on her right leg. She also has left-sided symptoms and presented in our clinic for repeat imaging of her left lower extremity. Additionally, she has had some chronic erythema of her right heel, and given her previous history was referred over earlier, given the concern of a possible infe ction of her right heel. She states that she is unable to sleep with her leg elevated and keeps her leg elevated essentially in the evenings approximately less than 6 hours per day. She states that just prior to coming into clinic this morning without any traumatic event, she had an approximately 6-cm curvilinear abrasion/tear of her left anterior tenorio. She is unsure of how this happened, but it was bleeding, and a dressing was put on at home prior to being evaluated. She states that she is able to walk with less symptoms with assistance since her amputation, but primarily uses a walker and does limited exercise secondary to her mobility. The repeat ultrasound performed in our clinic showed her to have significant stenosis of 50-75% of the distal common femoral artery and the superficial femoral artery through her distal thigh. There was greater than 75% stenosis of her popliteal, but her profunda was patent without any occlusion. She had monophasic waveforms in her anterior tib ial with occlusion of her posterior tibial with distal reconstitution and monophasic waveforms. Her left-sided ankle-brachial index was 0.43, and they were unable to get adequate toe signals. Admission Exam Per Admitting Provider PHYSICAL EXAMINATION: She is resting comfortably in her wheelchair in no acute distress. Her mucous membranes are moist. Her sclerae was anicteric. Her extraocular movements were intact. Her lungs were clear to auscultation bilaterally. Her heart was at 50 beats per minute and she had an end systolic ejection click. Her blood pressure is 156/54 in the right and 162/54 on the left. She had palpable femoral pulses bilaterally and no popliteal pulses or DP or PT on examination. Her left tenorio had circumferential chronic venostasis changes and there was a 6-cm curvilinear incision on the anterior aspect of her left tenorio that has been previously cleaned by nursing staff with significant edema around the incision. Additionally, on her more distal left medial tenorio, she had a 1-cm circular clear ulcer, likely from chronic venous stasis. She was diffusely neuromuscularly intact on examination. Principal Diagnosis 1. Retroperitoneal hematoma Discharge Exam Constitutional WD/WN, vitals as above + frail appearing and comfortable; not in distress Respiratory normal respiratory effort, lungs clear to auscultation Cardiovascular RRR, no murmur, no edema Gastrointestinal (Abdomen) R groin/flank/RLQ with + tenderness and ecchymosis noted Discharge Data Allergies Allergy/AdvReac Type Severity Reaction Status Date / Time Sulfa (Sulfonamide Allergy Intermediate RASH Verified 12/05/18 08:41 Antibiotics) morphine Allergy Unknown see notes Verified 12/05/18 08:41 piperacillin [From Zosyn] AdvReac Intermediate Difficulty Verified 12/05/18 08:41 Breathing tazobactam [From Zosyn] AdvReac Intermediate Difficulty Verified 12/05/18 08:41 Breathing codeine AdvReac Mild ABD CRAMPS Verified 12/05/18 08:41 Consultations 12/05/18 14:59 Consult Case Management - Discharge Planning Routine 12/05/18 15:03 Consult Pl[employer]er Routine 12/05/18 15:15 Consult [employer]er Routine Procedures Performed Operation Date: 12/05/18 11:10 Actual Procedures p Left Lower Extremity Angiogram, Ultasound Localization of Right Femoral Artery, Mechanical Closure of Right Femoral Artery, Moderate Sedation 1300- 1417(Right) - Krish Smith MD Ordered Studies 12/05/18 07:29 EV angio LE LT Routine US guide vascular access Routine 12/05/18 14:33 CT abd pelvis wo con Stat 12/05/18 15:07 US point of care ultrasound Routine Hospital Course (1) Retroperitoneal hematoma: This point she is doing well and is back to baseline. We will send her home at this time. We will see her in the office in 2 weeks for follow-up. 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, retroperitoneal hematoma Discharge Goals: Diagnostic testing Activity: Per 'Additional Instructions' section Lifting: Gradually increase as tolerated Bathing: No limitations Non-emergency contact: Surgeon Call non-emergency contact if: you have any medication questions, your symptoms worsen, your pain is not controlled, your pain is worsening, your pain is unusual for you, your pain is concerning for you, your temperature is above 101.5, your wound has increased redness, your wound has increased drainage and your wound pain has increased Follow-up/Referrals: Ahsan James MD [Primary Care Provider] - Diet: Heart Healthy Addtl Provider Instructions: SPECIAL CARE INSTRUCTIONS: Medications: * Continue to take your medications as directed. If you have been given a prescription for Plavix, please fill it immediately and take as directed. Incision Care: * Your puncture site may have some bruising and minor swelling for about one week. * You will have a small dressing covering your puncture site. You may remove the dressing after 24 hours and shower. You may let the warm soapy water run over it, but be sure to dry the puncture site well and keep it dry. * DO NOT IMMERSE THE INCISION IN A TUB/POOL/etc. UNTIL HEALED. * Puncture sites should be kept covered with a band-aid until it begins to heal. Restrictions: * Depending on whether you leg or arm was punctured to access the arteries, you will be required to lay flat, hold your arm still, or both, for about 4 hours after the procedure to prevent bleeding. * Limit your activity for the first 48 hours. You may walk and go up and down steps. Avoid excessive bending or movement at the puncture site. Possible Complications: * Excessive Swelling - after blood flow is improved you may notice increased swelling in the lower legs. This is a normal response. This usually depends on the amount of blockages in the leg, how long they have been there prior to your procedure and how much blood flow was restored. Elevating your legs will help to improve this. Please notify our office ([phone]) if the swelling does not go away after lying in bed overnight. * Infection/Drainage/Bleeding - Drainage or bleeding from the puncture site should be minimal. If you have excessive bleeding or drainage, call our office ([phone]) right away. * Pain - You may experience some mild pain or soreness at your puncture site. If your pain does not improve, please contact our office ([phone]). Call your doctor and seek emergent treatment if you develop: * Temperature above 101 degrees * Any fever or chills * Any redness or purulent drainage from the puncture site * Any new dusky/blue colored toes or feet with coolness or sharp or aching pain. SKIN IRRITATION: * You may experience some redness and/or swelling in the area where radiation was administered. If any skin irritation occurs, please contact your family physician. FOLLOW UP VISIT: Keep any scheduled doctor appointments. Call [phone] to schedule a follow up appointment if one not already scheduled. Prescriptions: Continued anastrozole 1 mg tablet 1 mg PO QPM RF: 0 aspirin 81 mg Tablet,Delayed Release (Dr/Ec) 81 mg PO QPM RF: 0 clonidine HCl 0.2 mg tablet 0.2 mg PO BID RF: 0 metoprolol tartrate 50 mg tablet 75 mg PO Q12H RF: 0 furosemide 20 mg tablet 20 mg PO QAM RF: 0 gabapentin 100 mg Capsule 200 mg PO BID RF: 0 gabapentin 100 mg Capsule 300 mg PO HS RF: 0 losartan 100 mg tablet 100 mg PO QAM RF: 0 Restasis 0.05 % dropperette 1 drp OPB Q12H RF: 0 Stand-Alone Forms: My [facility] [place] [employer] [facility]/Other Patient Handouts: Hypertension Control, Foods Heart Healthy Discharge Orders: Discharge Order (Routine); Ordered 12/07/18 Ordered By: Krish Smith Admission Data Admit Date/Time: 12/05/18 15:02 Attending Provider: Krish Smith Admit Provider: Dar Farris Primary Care Provider: Ahsan James Other Providers: Dwaine Schmitz Service: Surgical Services Other Interventions: Discharge Summary Assessment (RN) Last Done: 12/07/18 11:23 DC Date/Time DO NOT enter until pt leaves facility: 12/07/18 12:50
== END 2018-12-07 12:50 | disposition home health service (06) | DRG 299 ==
LOC: ASU 08:18 → 1E 15:02 → 3W 12-06 08:23
DX: D62 Acute posthemorrhagic anemia; Z79.899 Other long term (current) drug therapy; N18.3 Chronic kidney disease, stage 3 (moderate); Z89.611 Acquired absence of right leg above knee; I73.9 Peripheral vascular disease, unspecified; K66.1 Hemoperitoneum; Z79.82 Long term (current) use of aspirin